=== PATIENT | female | born 1965 | race Caucasian/White ===

== ENCOUNTER 2020-07-17 23:56 | Inpatient (IN) | payer OTHER, SELFPAY ==
[2020-07-18] VITALS (26 sets, daily range): BP systolic 126–182; BP diastolic 23–142; PULSE 75–102; RESP 14–22; TEMP 36.2–37.2; O2SAT 92–100; BMI 24.6; BMI 23.1
--- NOTE | 2020-07-18 | XR_ITS ---
EXAMINATION: CHEST 1 VIEW CLINICAL INFORMATION: Shortness of breath. COMPARISON: 07/02/2020. TECHNIQUE: An AP view of the chest is provided. FINDINGS: The cardiac silhouette is stable. There is diffuse interstitial prominence throughout both lungs, slightly more prominent than on the prior exam in the setting of slightly decreased lung volumes. There aren't neither pleural effusions nor pneumothoraces. A left axillary vascular stent is noted. The osseous structures are stable. IMPRESSION: Diffuse interstitial prominence again identified throughout both lungs, slightly accentuated due to lower lung volumes.
--- NOTE | 2020-07-18 | ECG_ITS ---
Test Reason : BACK PAIN Blood Pressure : / mmHG Vent. Rate : 094 BPM Atrial Rate : 094 BPM P-R Int : 156 ms QRS Dur : 078 ms QT Int : 380 ms P-R-T Axes : 056 080 067 degrees QTc Int : 475 ms Normal sinus rhythm Nonspecific T wave abnormality Abnormal ECG When compared with ECG of 02-JUL-2020 15:36, No significant change was found Referred By: Vern Trujillo Electronically Signed By:ROLANDO MARTINEZ
--- NOTE | 2020-07-18 01:01 | ED_ITS ---
HPI - SOB/Dyspnea General Chief Complaint: Dyspnea Stated Complaint: back pain Time Seen by Provider: 07/18/20 00:39 Source: patient and EMS Mode of arrival: EMS History of Present Illness HPI Narrative: 55-year-old female states of shortness of breath. Has not gone to dialysis for 8 days. States is moving to [place] and unable to attend. increasing dyspnea with exertion. No fevers or chills. No chest pain no abdominal pain no nausea no vomiting MD elicited complaint: shortness of breath Timing: constant Severity: moderate Exacerbating factors: lying flat and movement Treatment prior to arrival: oxygen Related Data Home Medications Medication Instructions Recorded Confirmed albuterol sulfate 2 puff PO QID 07/18/20 07/18/20 amlodipine 1 tab PO DAILY 07/18/20 07/18/20 calcitriol 2 cap PO TID 07/18/20 07/18/20 loratadine 1 tab PO DAILY 07/18/20 07/18/20 melatonin 1 tab PO BEDTIME 07/18/20 07/18/20 mirtazapine 1 tab PO BEDTIME 07/18/20 07/18/20 multivitamin [Daily-Tha] 1 tab PO DAILY 07/18/20 07/18/20 sertraline 1 tab PO DAILY 07/18/20 07/18/20 sevelamer carbonate 3 tab PO TID 07/18/20 07/18/20 tramadol 1 tab PO TID PRN 07/18/20 07/18/20 vit B,C-iron sgv-EM-[id number]-zinc ox 1 tab PO DAILY 07/18/20 07/18/20 [ProRenal] Allergies Allergy/AdvReac Type Severity Reaction Status Date / Time Penicillins [PENICILLINS] Allergy Unknown UNKNOWN Verified 07/18/20 00:34 piperacillin [PIPERACILLIN] Allergy Unknown UNKNOWN Verified 07/18/20 00:34 promethazine [PROMETHAZINE] Allergy Unknown UNKNOWN Verified 07/18/20 00:34 tazobactam [TAZOBACTAM] Allergy Unknown UNKNOWN Verified 07/18/20 00:34 Review of Systems Review of Systems: Constitutional : No Fever, No Chills ENT/Mouth : No sore throat, No Rhinorrhea, No Swallowing Difficulty Eyes: No Eye Pain, No Swelling, No Redness Cardiovascular : No Chest Pain, positive SOB, No Orthopnea, positive Edema Respiratory : No Cough, No Sputum, No Wheezing, positive dyspnea Gastrointestinal : No Nausea, No Vomiting, No Diarrhea, No abdominal Pain, No Hematochezia, No Melena Genitourinary : No Dysuria, No Urinary Frequency, No Hematuria Musculoskeletal : No joint pain, No Myalgias Skin : No Skin Lesions, No rash Neuro : No Weakness, No Numbness, No Dizziness, No Headache Psych : No Anxiety/Panic, No Depression Heme/Lymph: No Bruising, No Lymphadenopathy Endocrine : No Polyuria, No Polydipsia [facility] Past Medical History Attestation statement: The following information was validated with the patient. Medical History AVF (arteriovenous fistula) Blind Cataract Diabetes mellitus End stage kidney disease HTN (hypertension), malignant Toe amputee Surgical History History of cholecystectomy Hx of appendectomy Social History Social History Alcohol intake: unknown Smoking Status: Unknown if ever smoked Use of substances other than those prescribed or required for medical reasons: Unknown Advance Directives: No Advance Directives Information Provided: No Physical Exam Vital Signs and I&O and Narrative: Vital Signs and I&O: Vital Signs Temp 98.9 F 07/18/20 00:10 Pulse 99 07/18/20 01:43 Resp 20 07/18/20 01:57 BP 152/77 H 07/18/20 01:43 Pulse Ox 98 07/18/20 01:43 Intake & Output 07/17/20 07/17/20 07/18/20 06:59 18:59 06:59 Weight 59.194 kg Body Mass Index 24.6 vital signs reviewed Const: Other: Appearance: Alert. Oriented X3. No acute distress. Eyes: Pupils equal, round and reactive to light. ENT: Pharynx normal. Neck: Normal inspection. Neck supple. CVS: Normal heart rate and rhythm. Pulses normal. Respiratory: mild respiratory distress. Breath diminished with mild rales at bilateral bases. No wheezing Abdomen: Soft and nontender. Skin: Skin warm and dry. Normal skin color. Normal skin turgor. Extremities: No lower extremity edema. No lower extremity edema. Neuro: Oriented X 3. No motor deficit. No sensory deficit. General: cooperative; No no acute distress Course Reevaluation(s) Reevaluation #1: patient has seen Dr. Gallardo Nephrology before patient does have dialysis Sunday MDM - SOB/Dyspnea Lab Data Attestation: I reviewed the patient's lab results. Result diagrams: 07/18/20 01:42 Labs: Lab Results 07/18/20 07/18/20 Range/Units 01:42 01:42 WBC 7.0 (4.8-10.8) X10*3/uL RBC 2.51 L (4.20-5.50) X10*6/uL Hgb 6.8 L* (12.0-16.0) g/dl Hct 22.2 L (37-47) % MCV 88.4 (80-98) fL MCH 27.1 (27.0-33.0) pg MCHC 30.6 L (31.0-35.0) g/dl RDW 19.3 H (11.0-16.0) % Plt Count 99 L (160-400) X10*3/uL MPV 9.8 (9.4-12.3) fL Immature Gran % (Auto) 0.3 (0.0-0.4) % Neut % (Auto) 71.8 (45-73) % Lymph % (Auto) 14.1 L (20-40) % [place] % (Auto) 9.6 (2-11) % Eos % (Auto) 3.9 (0-4) % Baso % (Auto) 0.3 (0-2) % Neut # (Auto) 5.0 (2.0-8.3) X10*3/uL Lymph # (Auto) 1.0 L (1.2-4.9) X10*3/uL [place] # (Auto) 0.7 (0.1-1.2) X10*3/uL Eos # (Auto) 0.3 (0.0-0.4) X10*3/uL Baso # (Auto) 0.0 (0.0-0.2) X10*3/uL Abs Immat Gran (auto) 0.02 (0.00-0.03) X10*3/uL Absolute Nucleated RBC 0.000 (0.0-0.012) X10*3/uL Nucleated RBC % (auto) 0.0 (0.0-0.2) /100WBC PT 14.7 H (10.8-13.0) SEC INR 1.2 H (0.9-1.1) ECG Data Attestation: I personally reviewed and interpreted this ECG as follows: Pacemaker model: normal sinus rhythm with a rate of 94. Normal axis. Normal ST segments. Discharge Plan Discharge Prescriptions: No Action multivitamin [Daily-Tha] Tablet 1 tab PO DAILY RF: 0 tramadol 50 mg tablet 1 tab PO TID PRN (Reason: Pain, Moderate) RF: 0 amlodipine 10 mg tablet 1 tab PO DAILY RF: 0 mirtazapine 30 mg tablet 1 tab PO BEDTIME RF: 0 calcitriol 0.5 mcg capsule 2 cap PO TID RF: 0 albuterol sulfate 90 mcg/actuation HFA aerosol inhaler 2 puff PO QID RF: 0 sertraline 50 mg tablet 1 tab PO DAILY RF: 0 loratadine 10 mg tablet 1 tab PO DAILY RF: 0 sevelamer carbonate 800 mg tablet 3 tab PO TID RF: 0 melatonin 5 mg tablet 1 tab PO BEDTIME RF: 0 ProRenal 8 mg iron-800 mcg-1,000 unit tablet 1 tab PO DAILY RF: 0 EKG interpretations EKG EKG results cardiology: interpreted by ENZO and WNL Dysrhythmias Sinus rhythms and dysrhythmias: sinus rhythm NC, pacemaker, normal Normal tracing: normal tracing
[2020-07-18 01:48] LABS: Basophils Percent Auto 0.3 % (0-2); Eosinophils Absolute Auto 0.3 X10*3/uL (0.0-0.4); Eosinophils Percent Auto 3.9 % (0-4); Hematocrit 22.2 % (37-47); Imm Gran Abs Auto 0.02 X10*3/uL (0.00-0.03); Imm Gran Pct Auto 0.3 % (0.0-0.4); Lymphocytes Percent Auto 14.1 % (20-40); MANUAL DIFF FLAG NO; Mean Corpuscular HGB Conc 30.6 g/dl (31.0-35.0); Mean Corpuscular Hemoglobin 27.1 pg (27.0-33.0); Mean Corpuscular Volume 88.4 fL (80-98); Mean Platelet Volume 9.8 fL (9.4-12.3); Monocytes Absolute Auto 0.7 X10*3/uL (0.1-1.2); Monocytes Percent Auto 9.6 % (2-11); Neutrophils Percent Auto 71.8 % (45-73); Red Blood Count 2.51 X10*6/uL (4.20-5.50); Red Cell Distribution Width 19.3 % (11.0-16.0)
[2020-07-18 01:49] LABS: Platelet Count 99 X10*3/uL (160-400)
[2020-07-18] MEDS: Morphine Sulfate 4 MG/ML CARTRIDGE IVPUSH (01:49)
[2020-07-18 01:50] LABS: Hemoglobin 6.8 g/dl (12.0-16.0)
[2020-07-18 01:55] LABS: INTERNATIONAL NORM RATIO 1.2 (0.9-1.1); Prothrombin Time 14.7 SEC (10.8-13.0)
[2020-07-18 02:36] LABS: Troponin-I High Sensitivity 233.7 ng/L (<3.5-17.0)
[2020-07-18 02:37] LABS: Alanine Aminotransferase 8 U/L (0-31); Albumin Level 3.7 g/dL (3.5-5.0); Alkaline Phosphatase 541 U/L (39-117); Anion Gap 22 (12-20); Aspartate Amino Transferase 14 U/L (5-31); Bilirubin Direct 0.2 mg/dL (0.0-0.5); Bilirubin Total 0.6 mg/dL (0.0-1.0); Blood Urea Nitrogen 73 mg/dL (9-16); Calcium 8.4 mg/dL (8.4-10.2); Carbon Dioxide 21 mmol/L (22-29); Chloride 103 mmol/L (96-108); Creatinine Clr Calc Pharmacy 4.8; Estimated Glomerular Filt Rate 4; Glucose Random 110 mg/dL (60-115); Lipase 35 U/L (8-78); Potassium 5.8 mmol/l (3.3-5.1); Sodium 140 mmol/L (135-145); Total Protein 6.7 g/dL (6.5-8.0)
--- NOTE | 2020-07-18 03:00 | P.HPCC_ITS ---
History of Present Illness Date of Service: 07/18/20 Chief Complaint: Chief complaint: SOB/ Fluid Overload no HD x 8 days Chief complaint: Patient was admitted to the ICU due to shortness of breath in the setting of fluid overload for she missed dialysis for a week HPI: 55-year-old female with history of end-stage renal disease on hemodialysis on Saturdays who missed dialysis for approximately 1 week as she was on a trip to [facility]. Patient has type 2 diabetes, hypertension, she is legally blind. History of AV fistula clot has been on Coumadin in the past, cataracts, depressions, osteoarthritis, tobacco dependence, erosive esopha gitis, Patient presented to the emergency room with complaints of shortness of breath, dyspnea on exertion, swelling of the legs. Patient does produce urine. Denies any chest pain, hemoptysis, cough or sputum production, fever chills. Denies arm or jaw pain. In the ER, her workup revealed no white count, the patient appears to be quite anemic with an H&H of 6.8 and 22 respectively, worse than baseline, no history of melena or hematochezia. Her potassium level was 5.8, she was treated with insulin and D50. BNP is 2079, chest x-ray does show evidence of pulmonary Congestion and cardiomegaly. Dr. Rivero from the nephrology team was contacted for dialysis and the pt was admitted to ICU. ROS: Denies headache, no visual changes, lightheadedness or dizziness, no hi story of seizures or strokes, no history of eye or ear problems, no sore throat, cough or sputum production,, denies chest pain, palpitations, no coronary disease, pulmonary disease, no hemoptysis, denies any melena, hematochezia, liver or kidney problems, no dysuria, hematuria, no leg swelling, no history of DVT or PE. She has had a AV fistula clot in the past for which he was on Coumadin. Patient admits to recent traveling to and from [place] but denies the possibility of been contact with somebody with COVID-19. All other review of systems negative. Past Medical History: As above Past Surgical History: AV fistula formation Right ocular lens placement Cholecystectomy Left toe amputation Family history: Significant for hypertension and diabetes in her mother. Social History: Lives with her son, I smokes about 5 cigarettes per day for the past 30 years. No alcohol or drugs. CODE STATUS: Full code Baseline Functionality: Able to ambulate, makes her own meals. Contacts or HCP: Allergies: Penicillin, promethazine, Zosyn (rash) Home Medications: Please see med rec PHYSICAL EXAM: VS: Blood pressure 161/77, heart rate 102, respiratory rate 20, O2 sat 93% on room air, temperature 98.9?. General: Alert oriented x3 no acute distress. Speaking full sentences. Speech is well articulated, thought process is coherent. Following all commands. Skin: Intact, no lesions, edema, erythema, clubbing or cyanosis. No ulcers. HEENT: Head is normocephalic, atraumatic, Left eye is completely opacified. Extraocular movements appear intact. Buccal mucosa is dry, Neck is supple without lymphadenopathy. Cardiac: Clear S1-S2, no murmurs rubs or gallops. 2+ JVD at 30 degree angle Pulmonary: Bibasilar crackles, no rhonchi or wheezes Abdomen: Protuberant, positive bowel sounds in all 4 quadrants. Soft, nontender, no rebound or guarding. Musculoskeletal: Moving all 4 extremities upon request a major joints, there is no crepitus or tenderness. The strength is 5/5 bilaterally and throughout all 4 extremities. No leg edema. Gait not assessed at this point. Neurologic: As above, cranial nerves 2-12 are grossly intact. No focal deficits noted. Motor strength as above. Vascular: 2+ pulses upper and lower extremities distally. Left antecubital AV fistula with a positive strong thrill. SIGNIFICANT LABORATORY DATA: White blood cell 7.0, hemoglobin 6.8, hematocrit 22.2) lower than baseline). PT 14.7, INR 1.2. Sodium 140, potassium 5.8, carbon dioxide 21, anion gap 22, BUN 73, creatinine 11.09. Random glucose 110, calcium 8.4, high sensitivity troponin elevated at 233.7. ( previous baseline 23.5) REVIEW OF IMAGES: CXR impression Diffuse interstitial prominence again identified throughout both lungs, slightly accentuated due to lower lung volumes. EKG REVIEW: sinus rhythm 94 beats per minute. There is no ST elevations, no depressions.T wave inversion AVL age undetermined changes, no comparison. ASSESSMENT AND PLAN: 1. Fluid overload due to lack of hemodialysis (non-compliant) 2. Hyperkalemia 3. Respiratory distress due to 1. 4. Abnormal troponin elevation possibly in light of fluid overload and renal disease rule out ACS 5. Type 2 diabetes appears stable 6. Anemia of chronic disease rule out GI bleed. 7. Hypertension, appears stable Admit to ICU, vital signs, monitor, repeat troponin in 2 hours, recheck EKG with chest pain and in the morning, nephrology consult, if the troponin is higher, will consult Cardiology, I do not think she needs to be anticoagulated at this point. Aspirin orally ordered. Will recheck potassium. Patient will have dialysis soon. Obtain stool occult blood test to rule out the possibility of GI bleed being part of her anemia. Continue with home medications. Kayexalate 30 g p.o. x1 ordered. Add proBNP and D-dimer, magnesium levels. Nebulizers as needed. Insulin sliding scale; Add bowel regimen. Will order 2 units of packed red blood cells to be given with dialysis. GI PROPHYLAXIS: No need at this point DVT PROPHYLAXIS: Pneumatic compression stockings Critical care time used for critical evaluation of this patient, diagnosis, treatment and coordination of care, review her records and documentation TOTAL CRITICAL CARE TIME 90 MIN , free of any procedures. Patient's care was discussed in detail with Dr. Gonzalez. He is aware of all the above as well as the plan of care for this patient. [facility] Past Medical History Medical History AVF (arteriovenous fistula) Blind Cataract Diabetes mellitus End stage kidney disease HTN (hypertension), malignant Toe amputee Surgical History Surgical History History of cholecystectomy Hx of appendectomy Social History Social History Alcohol intake: unknown Smoking Status: Unknown if ever smoked Use of substances other than those prescribed or required for medical reasons: Unknown Advance Directives: No Advance Directives Information Provided: No Meds Allergies Allergy/AdvReac Type Severity Reaction Status Date / Time Penicillins [PENICILLINS] Allergy Unknown UNKNOWN Verified 07/18/20 00:34 piperacillin [PIPERACILLIN] Allergy Unknown UNKNOWN Verified 07/18/20 00:34 promethazine [PROMETHAZINE] Allergy Unknown UNKNOWN Verified 07/18/20 00:34 tazobactam [TAZOBACTAM] Allergy Unknown UNKNOWN Verified 07/18/20 00:34 Home Medications Medication Instructions Recorded Confirmed Type albuterol sulfate 2 puff PO QID 07/18/20 07/18/20 History amlodipine 1 tab PO DAILY 07/18/20 07/18/20 History calcitriol 2 cap PO TID 07/18/20 07/18/20 History loratadine 1 tab PO DAILY 07/18/20 07/18/20 History melatonin 1 tab PO BEDTIME 07/18/20 07/18/20 History mirtazapine 1 tab PO BEDTIME 07/18/20 07/18/20 History multivitamin [Daily-Tha] 1 tab PO DAILY 07/18/20 07/18/20 History sertraline 1 tab PO DAILY 07/18/20 07/18/20 History sevelamer carbonate 3 tab PO TID 07/18/20 07/18/20 History tramadol 1 tab PO TID PRN 07/18/20 07/18/20 History vit B,C-iron lzc-BB-G8-zinc ox 1 tab PO DAILY 07/18/20 07/18/20 History [ProRenal] Physical Exam Vital Signs and I&O and Narrative: Vital Signs and I&O: Vital Signs Temp 98.9 F 07/18/20 00:10 Pulse 99 07/18/20 01:43 Resp 20 07/18/20 01:57 BP 152/77 H 07/18/20 01:43 Pulse Ox 98 07/18/20 01:43 Intake & Output 07/17/20 07/17/20 07/18/20 06:59 18:59 06:59 Weight 59.194 kg Body Mass Index 24.6 Results Labs Labs: Laboratory Tests 07/18/20 07/18/20 07/18/20 01:42 01:42 01:42 WBC 7.0 RBC 2.51 L Hgb 6.8 L* Hct 22.2 L MCV 88.4 MCH 27.1 MCHC 30.6 L RDW 19.3 H Plt Count 99 L MPV 9.8 Immature Gran % (Auto) 0.3 Neut % (Auto) 71.8 Lymph % (Auto) 14.1 L [place] % (Auto) 9.6 Eos % (Auto) 3.9 Baso % (Auto) 0.3 Neut # (Auto) 5.0 Lymph # (Auto) 1.0 L [place] # (Auto) 0.7 Eos # (Auto) 0.3 Baso # (Auto) 0.0 Abs Immat Gran (auto) 0.02 Absolute Nucleated RBC 0.000 Nucleated RBC % (auto) 0.0 PT 14.7 H INR 1.2 H Sodium 140 Potassium 5.8 H Chloride 103 Carbon Dioxide 21 L Anion Gap 22 H BUN 73 H Creatinine 11.09 H* Estim Creat Clear Calc 4.8 Estimated GFR 4 Random Glucose 110 Calcium 8.4 Total Bilirubin 0.6 Direct Bilirubin 0.2 AST 14 ALT 8 Alkaline Phosphatase 541 H Troponin I High Sens Total Protein 6.7 Albumin 3.7 Lipase 35 07/18/20 01:42 WBC RBC Hgb Hct MCV MCH MCHC RDW Plt Count MPV Immature Gran % (Auto) Neut % (Auto) Lymph % (Auto) [place] % (Auto) Eos % (Auto) Baso % (Auto) Neut # (Auto) Lymph # (Auto) [place] # (Auto) Eos # (Auto) Baso # (Auto) Abs Immat Gran (auto) Absolute Nucleated RBC Nucleated RBC % (auto) PT INR Sodium Potassium Chloride Carbon Dioxide Anion Gap BUN Creatinine Estim Creat Clear Calc Estimated GFR Random Glucose Calcium Total Bilirubin Direct Bilirubin AST ALT Alkaline Phosphatase Troponin I High Sens 233.7 H Total Protein Albumin Lipase
[2020-07-18] MEDS: Furosemide 40 MG/4 ML VIAL IVPUSH ×2 (03:10→03:11)
--- NOTE | 2020-07-18 03:39 | PC.NURSE ---
PATIENT REFUSES TO HAVE DALEY CATHETER PLACED. AWARE.
--- NOTE | 2020-07-18 03:48 | PC.NURSE ---
REPORT CALL TO FLOOR.
[2020-07-18 03:54] LABS: D Dimer 587 NG/ML
[2020-07-18] MEDS: Nitroglycerin 2 % Oint 1 GM Packet 0.5 INCH TRANSDERMA (03:56)
--- NOTE | 2020-07-18 04:03 | PC.NURSE ---
PATIENT REFUSED MEDICATION AND STATED IF SHE DIDN'T GET ANYTHING FOR PAIN SHE WAS GOING HOME
[2020-07-18 04:04] LABS: B Type Natriuretic Peptide 2079 pg/mL (<100)
[2020-07-18 04:11] LABS: Magnesium 2.4 mg/dL (1.6-2.6)
[2020-07-18 04:20] LABS: Thyroid Stimulating Hormone 1.97 mIU/mL (0.32-4.0)
[2020-07-18] MEDS: Morphine Sulfate 2 MG/ML CARTRIDGE 0.5 MG IVPUSH (04:23)
--- NOTE | 2020-07-18 05:28 | PC.NURSE ---
UNABLE TO DISCHARGE PATIENT FROM ER NO CLINICAL IMPRESSION , ETC IN [facility]. CHARGE NURSE AWARE. ICU NOTIFIED
[2020-07-18 05:59] LABS: Potassium 5.6 mmol/l (3.3-5.1)
[2020-07-18 06:13] LABS: Troponin-I High Sensitivity 262.9 ng/L (<3.5-17.0)
--- NOTE | 2020-07-18 06:26 | PM.CCN ---
Critical Care Event Note Summary Code activated: No Narrative: even though the patient did not have any cardiac symptomatology, the fact that she had shortness of breath and abnormal troponin with multiple underlying risk factors prompt us to repeat a 2nd troponin. These last came back higher at 263 which in comparison to prior and her baseline is higher. Patient does have significant anemia, I do not want to assume this is simply due to chronic kidney disease, the patient is refusing a rectal exam for occult blood testing. I do not feel comfortable anticoagulating on the basis of the above and without knowing whether not she is bleeding. Cardiology consult with Dr. Delilah Browne was placed and on over the phone discussion about the case was done. Based on the scenario and the fact that the patient presented with fluid overload, significant renal disease, he does not think this is related to acute coronary syndrome. He does not advised to anticoagulate this patient, he agrees with aspirin and beta-rebeca at this point. He further states that high sensitivity troponin of the 160s equivalent to 0.26 of regular troponin markers. No further action at this point. Case discussed with Dr. Gonzalez Critical care time: less than 30 mins
[2020-07-18] MEDS: ondansetron HCL 4 MG/2 ML VIAL IVPUSH (06:28)
[2020-07-18] MEDS: Dextrose 50 % 25 GM/50 ML SYRINGE IVPUSH (06:28)
[2020-07-18] MEDS: Metoprolol Tartrate 12.5 MG HALFTAB PO (06:34)
[2020-07-18 06:38] LABS: Glucose, Whole Blood 62 mg/dL (60-115)
[2020-07-18 07:26] LABS: Glucose, Whole Blood 140 mg/dL (60-115)
--- NOTE | 2020-07-18 09:26 | PC.NURSE ---
Addendum entered by Fidelina Park RN 07/18/20 18:26: PATIENT TAKEN OFF DIALYSIS AT 1730 - PATIENT RECEIVED DINNER TRAY AND ATE 100% - PATIENT REQUESTING TO LEAVE AMA - JESSI FRANCO AT BEDSIDE EXPLAINING RISK OF LEAVING AMA - PATIENT VERBALIZING UNDERSTANDING OF LEAVING AMA - DISCHARGE PAPERWORK COMPLETED AND HANDED TO PATIENT. AMA PAPERWORK SIGNED BY PATIENT. IV REMOVED AND PATIENT TAKEN OFF MONITOR. PATIENT REQUESTING YELLOW CAB NUMBER AND PHONE - PROVIDED BY THIS RN. PATIENT DRESSED - PATIENT BECOMING MORE AGGRESSIVE, YELLING AT STAFF AND THROWING ARMS AROUND- SECURITY AND NURSING ACCOUNTING DIRECTOR CALLED TO UNIT. PATIENT ESCORTED TO FRONT ENTRANCE BY STEFANIE Sibley NURSE EDUCATOR AND SECURITY. Addendum entered by Fidelina Park RN 07/18/20 16:43: DIALYSIS STARTED AT 1430 - PATIENT BECOMING MORE AGGRESSIVE AND CONTINUING TO YELL OUT, THREATENING TO RIP DIALYSIS LINES OUT - PATIENT DEMANDING FOOD - DIET ORDERED AND GSR AT BEDSIDE - CURRENTLY AWAITING TRAY. PATIENT CONTINUED TO YELL OUT, THREATENING TO LEAVE AMA AND PULL DIALYSIS LINES OUT - PATIENT PULLED PULSE OX OFF. JESSI FRANCO AT BEDSIDE EXPLAINING IMPORTANCE OF NOT PULLING AT LINES/TUBES/ETC. WILL CONTINUE TO MONITOR. Addendum entered by Fidelina Park RN 07/18/20 14:33: DR FISH AT BEDSIDE WITH CLAM BED LABORER- PATIENT AGREEABLE TO 3HRS OF DIALYSIS THIS EVENING - DILAUDID 0.25MG IVP ORDERED AND ADMINISTERED FOR PATIENT C/O 10/10 GENERALIZED PAIN. PATIENT REQUESTING FOOD - PATIENTS CURRENT ORDERS ARE NPO - OKAY PER DR FISH TO GIVE PATIENT JUICE AND ICE CREAM. PATIENT PLACED ON BEDPAN AND WAS ABLE TO URINATE APPROX. 150CC YELLOW URINE. ENVIRONMENTAL ENGINEERING ASSISTANT AT BEDSIDE SETTING UP FOR TREATMENT. 1 UNIT OF PRBC TO BE ADMINISTERED BY ENVIRONMENTAL ENGINEERING ASSISTANT DURING DIALYSIS PER DR FISH. WILL CONTINUE TO MONITOR. Addendum entered by Fidelina Park RN 07/18/20 11:41: DR JOYCE AT BEDSIDE - PATIENT CONTINUING TO REFUSE DIALYSIS - MD EDUCATED PATIENT ON POSSIBILITY OF DYING WITHOUT DIALYSIS DR TEE AT BEDSIDE - PATIENT AGREEABLE TO DIALYSIS BUT ONLY IF GIVEN PAIN MEDICATION - THIS RN OFFERED PRN TRAMADOL BUT PATIENT REFUSED. PATIENT CONTINUING TO REMAIN DROWSY BUT AROUSABLE TO VERBAL STIMULI. PATIENT REFUSED 1200 SCHEDULED MEDICATIONS AND 1130 POC - EDUCATED PATIENT ON IMPORTANCE OF MONITORING POC FOR HYPOGLYCEMIA AND THE POTENTIAL FOR ADVERSE REACTIONS INCLUDING R/T HYPOGLYCEMIA. VSS AT THIS TIME. AWAITING MEDICAL DELIVERY DRIVER ARRIVAL. WILL CONTINUE TO MONITOR. Original Note: THIS RN AT BEDSIDE FOR MORNING MEDICATION ADMINISTRATION AND SHIFT ASSESSMENT - PATIENT EASILY AROUSABLE TO VERBAL STIMULI BUT UNABLE TO STAY AWAKE, A&OX3. PATIENT REFUSING ALL PO MEDICATIONS DUE TO INCREASED NAUSEA - THIS RN OFFERED TO INQUIRE MD ABOUT NAUSEA MEDICATIONS BUT PATIENT CONTINUED TO REFUSE ALL PO MEDS. UPDATED PATIENT WITH CURRENT PLAN OF CARE INCLUDING RECEIVING DIALYSIS TODAY - PATIENT REFUSING DIALYSIS - WHEN ASKED WHY PATIENT SAYS ILL ONLY GET DIALYSIS IF I GET PAIN MEDICATION THROUGH MY IV . THIS RN EDUCATED PATIENT REGARDING REASONING FOR DIALYSIS AND POSSIBLE EFFECTS OF NOT RECEIVING DIALYSIS - PATIENT THEN STATES I DONT CARE IF I . DR FISH NOTIFIED VIA PHONE. VSS AT THIS TIME. WILL CONTINUE TO MONITOR.
--- NOTE | 2020-07-18 10:25 | PM.CNNEP ---
History of Present Illness Chief Complaint Chief complaint: back pain [facility] Past Medical History Medical History AVF (arteriovenous fistula) Blind Cataract Diabetes mellitus End stage kidney disease HTN (hypertension), malignant Toe amputee Surgical History Surgical History History of cholecystectomy Hx of appendectomy Social History Social History Household Members: Children Housing: House Alcohol intake: unknown Smoking Status: Current every day smoker Tobacco Type: Cigarette Packs Per Day: 0.25 Cigarettes Per Day: 5.0 Years Smoked: >30 Meds Allergies Allergy/AdvReac Type Severity Reaction Status Date / Time Penicillins [PENICILLINS] Allergy Unknown UNKNOWN Verified 07/18/20 00:34 piperacillin [PIPERACILLIN] Allergy Unknown UNKNOWN Verified 07/18/20 00:34 promethazine [PROMETHAZINE] Allergy Unknown UNKNOWN Verified 07/18/20 00:34 tazobactam [TAZOBACTAM] Allergy Unknown UNKNOWN Verified 07/18/20 00:34 Home Medications Medication Instructions Recorded Confirmed Type albuterol sulfate 2 puff PO QID 07/18/20 07/18/20 History amlodipine 1 tab PO DAILY 07/18/20 07/18/20 History calcitriol 2 cap PO TID 07/18/20 07/18/20 History loratadine 1 tab PO DAILY 07/18/20 07/18/20 History melatonin 1 tab PO BEDTIME 07/18/20 07/18/20 History mirtazapine 1 tab PO BEDTIME 07/18/20 07/18/20 History multivitamin [Daily-Tha] 1 tab PO DAILY 07/18/20 07/18/20 History sertraline 1 tab PO DAILY 07/18/20 07/18/20 History sevelamer carbonate 3 tab PO TID 07/18/20 07/18/20 History tramadol 1 tab PO TID PRN 07/18/20 07/18/20 History vit B,C-iron [id number]-[id number]-zinc ox 1 tab PO DAILY 07/18/20 07/18/20 History [ProRenal] Physical Exam Vital Signs and I&O: Vital Signs Temp 97.6 F 07/18/20 07:45 Pulse 75 10/04/20 10:00 Resp 14 07/18/20 10:00 BP 153/52 H 07/18/20 10:00 Pulse Ox 96 07/18/20 10:00 Intake & Output 07/17/20 07/18/20 07/18/20 18:59 06:59 18:59 Intake Total 0 / 0 0 / 0 Output Total 0 / 0 Balance 0 / 0 0 / 0 Urine Output (Average ml/kg/hr) 0.00 Weight 59.194 kg 55.5 kg Intake: Intake, Oral Amount 0 / 0 0 / 0 Output: Output, Urine Amount 0 / 0 very weak oral moist mucosa lungs crackles on bases s1s2 +WILL ext LUE AVF+thrill Body Mass Index 23.1 Results Lab Results Result Diagrams: 07/18/20 01:42 07/18/20 05:27 Lab results: Chemistry 07/18/20 07/18/20 01:42 05:27 Sodium 140 Potassium 5.8 H 5.6 H Carbon Dioxide 21 L BUN 73 H Creatinine 11.09 H* Calcium 8.4 Hematology 07/18/20 01:42 WBC 7.0 Hgb 6.8 L* Plt Count 99 L Assessment and Plan (1) Acute hyperkalemia: Status: Acute (2) Anemia: Qualifiers: Anemia type: due to chronic kidney disease Chronic kidney disease stage: on chronic dialysis Qualified Code(s): N18.6 - End stage renal disease; D63.1 - Anemia in chronic kidney disease; Z99.2 - Dependence on renal dialysis Status: Acute (3) Fluid overload: Qualifiers: Hypervolemia type: unspecified Qualified Code(s): E87.70 - Fluid overload, unspecified Status: Acute (4) ESRD (end stage renal disease): Status: Acute Pt declines dialysis today she is requesting opioids for pain Based on my evaluation, I do not think she is capable of making decisions, suggest Psych and Palliative care consult, she is declining dialysis today, will discuss further with ICU team, could consider a dialysis trial a blood transfusion and discuss further after mental status clears and able to make decisions.
--- NOTE | 2020-07-18 12:18 | PM.EVENT ---
Event Note Event Note: Elevated troponin and fluid overload in
--- NOTE | 2020-07-18 13:02 | PM.EVENT ---
Event Note Event Note: Full consult dictated. Elevated troponins not related to acute coronary syndrome, troponin of flat. Most likely due to subendocardial strain and ischemia related to congestive heart failure and advanced end-stage renal disease on patient noncompliant with her dialysis follow-up. Also elevated BNP suggestive of heart failure related to lack of dialysis. Echocardiogram should be requested.
[2020-07-18] MEDS: HYDROmorphone HCl 0.5 MG/0.5 ML SYRINGE 0.25 MG IVPUSH (14:16)
[2020-07-18] MEDS: 0.9 % Sodium Chloride Flush 3 ML SYRINGE 2 ML IVFLUSH (14:17)
--- NOTE | 2020-07-18 14:35 | P.PNCC_ITS ---
Critical Care Event Note Summary Code activated: No Narrative: Mrs. Goyal is a 55 yo F with ESRD on HD who was admitted to the ICU with pulmonary edema after missing HD for 8 days during a trip to [facility]. HD was planned for the second slot this afternoon. I spoke with Dr. Gonzales earlier today. It was obvious that this is a patient who does not necessarily need dialysis 3 times a week, and in fact she often does not show up. She still makes urine. So there was certainly no urgency to dialyze her earlier today. Currently in the ICU, she is satting 100% on 1 L oxygen NC, and she?s breathing very comfortably with no WOB. I was called to see her this afternoon because she was refusing dialysis and refusing all nursing care.. I talked to her. She seemed to be willing to have dialysis if we gave her a dose of pain medicine. She claimed to be having pain throughout her whole body. Neither myself nor the developmental training counselor were able to get a better handle on her pain. I gave her 0.25 mg IV Dilaudid, essentially as a placebo. After that she was very cooperative with the nurses and my attempts to care for her. On my exam, she had maybe 2 cm JVD. Chest was clear to auscultation. I heard no murmur or gallops. She had no peripheral edema. Plan is for imminent dialysis during which she?ll get 2 units of blood (discussed with Dr. Gonzales). After that, she should stay in the hospital least one more day for follow-up of her troponins and her respiratory status. I dolores pect, however, that she will choose to leave [facility]. Time (including full chart rev, mult visits with patient, and mult convers with Dr. Gonzales): 45 min ([id number]) Critical care time: 30 - 74 mins
--- NOTE | 2020-07-18 17:45 | PM.CCN ---
Critical Care Event Note Summary Code activated: No Narrative: Patient has been verbally abusive for several hours while on dialysis, she has threatened to leave AMA several times. Patient attempted to pull the hemodialysis catheter once and then remove her oxygen nasal cannula from her face. In addition the patient has been verbally abusive to the nurses and demanding food. After several hours of he did not go see a shins, we did convince the patient to finish dialysis for she was getting blood with it. We accommodated her with a meal. The patient then demanded to leave against medical advice, risks of doing so were discussed in detail with the patient which include recurrent fluid overload, electrolyte abnormalities, arrhythmias and even . The patient stated that she did not care in that she could right this minute. I did complete a against medical advise discharge, advised the patient to follow-up with her telegraph operator for outpatient dialysis and to continue to take her home medications. An AMA form was signed by the patient and this was witnessed by several nurses. Critical care time: less than 30 mins
--- NOTE | 2020-07-18 22:14 | CONS_ITS ---
DATE OF SERVICE: REASON FOR CONSULTATION: Evaluation of end-stage kidney disease. HISTORY OF PRESENT ILLNESS: Ms. Powers is a very pleasant 55-year-old female who unfortunately has had significant deterioration over the past week. She is outpatient at the [facility] with end-stage kidney disease requiring dialysis 3 times a week. Unfortunately, she has been very noncompliant with her outpatient regimen. She recently traveled to [facility] for relocation, however, has decided to come back to [facility] and being called to evaluate for in the intensive care unit as she may require dialysis treatment. 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 OUTPATIENT MEDICATIONS: Ropinirole 0.25 mg daily p.r.n. at night, Renvela 800 mg 3 times a day with meals, Eliquis 2.5 mg daily, pantoprazole 40 mg daily, omeprazole 40 mg daily, sucralfate 1 g 4 times a day, gabapentin 300 mg daily, metoclopramide 5 mg 3 times a day with meals, oxycodone 5 mg 3 times a day p.r.n. for pain, amlodipine 10 mg daily, sertraline 50 mg daily, calcitriol 0.5 mcg daily, lorazepam 0.5 mg daily, Benadryl 25 mg daily, senna daily p.r.n. Zofran 4 mg q.6 hours p.r.n. for nausea. ALLERGIES: PENICILLINS, PHENERGAN, PIPERACILLIN, PROMETHAZINE, TAZOBACTAM, ZOSYN. SOCIAL HISTORY: Chaotic. She used to smoke cigarettes. Reports previous history of alcohol intake. No illicit drugs. FAMILY HISTORY: Noncontributory. REVIEW OF SYSTEMS: The patient is in the intensive care unit. Unable to provide as she is declining dialysis unless she receives pain medication. She is very lethargic, unable to answer questions. PHYSICAL EXAMINATION: GENERAL: On physical evaluation, she is lethargic. VITAL SIGNS: Blood pressure 153/52, pulse is 75 per minute, oxygen saturation 96% on room air. HEENT: Oral, moist mucosa. NECK: Reveals no jugular venous distention. She has very profound facial edema. LUNGS: Have decreased breath sounds bilaterally. HEART: S1, S2. Positive murmur. ABDOMEN: Soft, nontender. Positive bowel sounds. EXTREMITIES: Trace edema. Left upper extremity AV fistula. Positive thrill and bruit. NEUROLOGIC: Nonfocal. Able to answer questions and goes back to sleep. LABORATORY DATA: Hemoglobin 6.8, INR 1.2, potassium 5.8, repeat 5.6. Bicarbonate 21. Glucose 140, BNP 2000. Chest x-ray shows diffuse interstitial prominence throughout on both lungs. IMPRESSIONS: Ms. Powers is a very pleasant 55-year-old female with known history of end-stage kidney disease, very noncompliant, recently moved to [facility], returned to [facility]. Has not received dialysis for at least 10 days, who is in intensive care unit with: 1. Acute hyperkalemia. 2. Acute anemia. 3. Volume overload/congestive heart failure. 4. Lethargic/change in mental status. RECOMMENDATIONS: The patient declines hemodialysis unless she receives pain medicine. I doubt that she is capable of making decisions. I would ask the team to request a psych evaluation with our team in hospital to assess ability to make decisions. In the meantime, if appropriate, we will continue with medical care she is doing. In the recent past, she was considering stopping all therapies. This discussion should definitely be brought up as well with psych evaluation. Presently, she is lethargic, probably as a result of uremia due to lack of dialysis for days and the use of opioids. With your permission, we will continue to follow during the hospital stay. Thank you for allowing me to be part of her care. If she decides to do dialysis, we will go ahead and proceed with treatment today. Best regards, MD DIEGO Jones/MODL / [id number]
--- NOTE | 2020-07-19 00:55 | CONS_ITS ---
DATE OF SERVICE: 07/18/2020 REQUESTING PROVIDER: Beka Hoffman REASON FOR CONSULTATION: Abnormal troponin. PRIMARY CARE PHYSICIAN: Unknown. CHIEF COMPLAINT: Shortness of breath and fluid overload. HISTORY OF PRESENT ILLNESS: This is a 55-year-old female with end-stage renal disease on hemodialysis, has missed dialysis for greater than a week. She said she was moving to [place], [place], however, was not able to find a place to live and then returned to [facility]. She has not been on dialysis and came because she was getting short of breath with increasing leg swelling. The patient denies any chest pain. The patient is very limited historian, does not want to give much of the history and says she does not want to talk to much people and keeps the eyes closed during the entire conversation. The patient was seen by Dr. Gonzales, initially she refused to undergo dialysis. The patient is denying any palpitations, remained hemodynamically stable, not hypoxic. PAST MEDICAL HISTORY: History of diabetes and hypertension. She is legally blind. She has prior history of end-stage renal disease on hemodialysis. She had clotting of AV fistula in the past on Coumadin. She has depression. She has chronic pain syndrome. Her main complaint currently is pain. PERSONAL HISTORY: The patient lives with her son, but she says she does not want to talk to her son about her medical condition. She smokes 5 cigarettes a day. No alcohol or drug abuse. ALLERGIES: TO PENICILLIN, PROMETHAZINE, AND ZOSYN. FAMILY HISTORY: Noncontributory to present illness. REVIEW OF SYSTEMS: Difficult to obtain from the patient, but she denies any headaches. She says she has no visual changes. No upper respiratory or lower respiratory symptoms. No focal neurologic deficits. No exertional chest pain. No clear orthopnea or PND. No abdominal distention. Does have leg edema. PHYSICAL EXAMINATION: GENERAL: The patient is alert, responds appropriately, but is very asleep with the eyes closed whenever in between questions. Reveals pallor. There is no icterus. No cyanosis. VITAL SIGNS: Blood pressure currently 141/66, pulse is 76, respirations 14 to 16 per minute, and pulse ox 98% on 1 L/minute nasal cannula. HEENT: Normocephalic and atraumatic. NECK: Supple. No clear jugular venous distention. LUNGS: Clear to auscultation and also mild kyphoscoliosis. CARDIOVASCULAR: Regular S1 and S2 with S4. ABDOMEN: Benign. CLINICAL ENGINEERING MANAGER: Nonfocal. EXTREMITIES: Bilateral pedal edema. LABORATORY DATA: Hemoglobin 6.8, hematocrit 22.2, white cell count of 7, and platelet count of 99. ProTime 14.7 and INR 1.2. Sodium 140, potassium 5.6, BUN 73, and creatinine 11.09. BNP of 2079. Troponin of 233.7 and subsequently 262.9. Alkaline phosphatase of 541. TSH of 1.97. Chest x-ray shows diffuse interstitial prominence, however consistent with heart failure. EKG shows normal sinus rhythm, nonspecific ST changes. No significant abnormality compared to before. ASSESSMENT: This is a 55-year-old female who presents to the hospital with missing dialysis for more than a week, noted to be in fluid overload as well as hyperkalemia and uremia and elevated troponin, which are flat with no ischemic symptoms with elevated BNP suggestive of heart failure. PLAN: At this time, I had a long discussion with the patient in the presence of nurse. We discussed about the need for dialysis to protect her life. She initially said she did not want dialysis, but subsequently agreed and so will have dialysis done. Today, she also wants to go home. She wants a pain medication through IV route. Clinically, not having any ischemic symptoms. Her troponin elevation are secondary to heart failure in the setting of fluid overload and missing dialysis. Echocardiogram should be obtained to evaluate LV systolic and diastolic function to evaluate for LVH. She also markedly anemic, this needs to be treated and probably help with heart failure and ischemic status. No other workup is indicated. Compliance has been issue with this patient. Erik Mazariegos MD NRS/MODL / [id number]
== END 2020-07-18 18:35 | disposition left against medical advice (07) | DRG 682 ==
LOC: HO.ED 07-18 02:48 → HO.ICU 07-18 03:08
PROVIDERS: Physician Assistant Medical; Admitting Provider Anesthesiology; Emergency Provider Emergency Medicine; PCP Internal Medicine; Visit Provider Anesthesiology
DX: I12.0 Hypertensive chronic kidney disease with stage 5 chronic kidney disease or end stage renal disease (principal); N18.6 End stage renal disease; E11.22 Type 2 diabetes mellitus with diabetic chronic kidney disease; Z99.2 Dependence on renal dialysis; Z91.15 Patient's noncompliance with renal dialysis; E87.5 Hyperkalemia; H54.8 Legal blindness, as defined in USA; Z20.828 Contact with and (suspected) exposure to other viral communicable diseases; D63.1 Anemia in chronic kidney disease; F17.210 Nicotine dependence, cigarettes, uncomplicated; Z71.6 Tobacco abuse counseling; Z88.0 Allergy status to penicillin; Z79.891 Long term (current) use of opiate analgesic; Z79.899 Other long term (current) drug therapy
CPT/HCPCS: 36415; 71045; 80048; 80076; 82947; 83690; 83735; 83880; 84132; 84443; 84484; 85025; 85060; 85379; 85610; 86850; 86901; 86920; 86923; 90999; 93005; 93010; 94640; 96361; 96374; 96375; 99284; 99285; J1170; J1940; J2270; J2405; P9016

== ENCOUNTER 2020-07-23 16:59 | Emergency (ER) | payer OTHER, SELFPAY ==
[2020-07-23 17:25] VITALS: BP 185/89; PULSE 95; RESP 20; TEMP 36.4; O2SAT 95; BMI 622.1
--- NOTE | 2020-07-23 17:44 | ECG_ITS ---
Test Reason : SOB Blood Pressure : / mmHG Vent. Rate : 096 BPM Atrial Rate : 096 BPM P-R Int : 166 ms QRS Dur : 094 ms QT Int : 376 ms P-R-T Axes : 034 071 011 degrees QTc Int : 475 ms Normal sinus rhythm Low voltage QRS Nonspecific ST abnormality Abnormal ECG When compared with ECG of 18-JUL-2020 01:28, No significant change was found Referred By: Paris Warren Electronically Signed By:AVINASH BAUMAN MD
--- NOTE | 2020-07-23 17:45 | XR_ITS ---
EXAMINATION: XR CHEST CLINICAL INFORMATION: Chest pain COMPARISON: 07/18/2020 along with the oldest chest radiograph available dated 12/20/2017 TECHNIQUE: Frontal view of the chest was obtained. FINDINGS: The heart size is normal. Surgical clips are present in the upper mediastinum. Increased interstitial prominence is again seen although slightly improved when compared to the prior study. Many of these underlying findings are present chronic changes. No new pulmonary edema is seen. No new focal consolidation is seen. Scarring is present in the right midlung. No pleural effusions are present. IMPRESSION: No acute intrathoracic disease. Prominent interstitial markings seen throughout but slightly improved when compared to the prior study.
--- NOTE | 2020-07-23 18:57 | ED.GENADULT ---
HPI - General Adult General Chief complaint: General Medical Stated complaint: GENERAL WEAKNESS Time Seen by Provider: 07/23/20 17:44 Source: patient Mode of arrival: EMS Limitations: no limitations History of Present Illness HPI narrative: 55-year-old female presents with multiple complaints. States that she has missed 1 week of dialysis, has 10/10 pain to all extremities and her body, headache, dizziness, lightheadedness, nausea, vomiting, and weakness. She states that she did not go to dialysis because she wasn't feeling well, and has not taken any of her medications on a regular basis. She states to be cold, hungry, and is asking for pain management. Onset (ago): week(s) Location: head, neck, chest, back, abdomen, pelvis, left, right, upper extremity and lower extremity Severity: severe and similar to prior episodes Severity scale (1-10): 10 Quality: aching and constant Pain Consistency: constant Relieving factors: none Exacerbating factors: movement Associated symptoms: chest pain, fever/chills, headaches, loss of appetite, malaise, nausea/vomiting and weakness Treatments prior to arrival: none Related Data Home Medications Medication Instructions Recorded Confirmed albuterol sulfate 2 puff PO QID 07/18/20 07/18/20 amlodipine 1 tab PO DAILY 07/18/20 07/18/20 calcitriol 2 cap PO TID 07/18/20 07/18/20 loratadine 1 tab PO DAILY 07/18/20 07/18/20 melatonin 1 tab PO BEDTIME 07/18/20 07/18/20 mirtazapine 1 tab PO BEDTIME 07/18/20 07/18/20 multivitamin [Daily-Tha] 1 tab PO DAILY 07/18/20 07/18/20 sertraline 1 tab PO DAILY 07/18/20 07/18/20 sevelamer carbonate 3 tab PO TID 07/18/20 07/18/20 tramadol 1 tab PO TID PRN 07/18/20 07/18/20 vit B,C-iron [id number]-zinc ox 1 tab PO DAILY 07/18/20 07/18/20 [ProRenal] Allergies Allergy/AdvReac Type Severity Reaction Status Date / Time Penicillins [PENICILLINS] Allergy Unknown UNKNOWN Verified 07/18/20 00:34 piperacillin [PIPERACILLIN] Allergy Unknown UNKNOWN Verified 07/18/20 00:34 promethazine [PROMETHAZINE] Allergy Unknown UNKNOWN Verified 07/18/20 00:34 tazobactam [TAZOBACTAM] Allergy Unknown UNKNOWN Verified 07/18/20 00:34 Review of Systems Review of Systems: Yes all other systems are reviewed and are negative Constitutional: Constitutional: Reports body ache(s), Reports chills, Reports fatigue, Reports headache(s), Reports lethargy, Reports malaise, Reports poor appetite and Reports weakness Eyes: Eyes: Reports no additional eye complaints ENT: Reports vertigo, Reports dizziness, Reports headache(s) and Reports neck pain Cardiovascular: Cardiovascular: Reports chest pain, Reports irregular heart rhythm, Reports leg edema and Reports lightheadedness Respiratory: Respiratory: Reports cough Gastrointestinal: Gastrointestinal: Reports abdominal pain and Reports bloating Genitourinary: Genitourinary: Reports flank pain Musculoskeletal: Musculoskeletal: Reports back pain, Reports myalgias, Reports arthralgias and Reports neck pain Integumentary/Breasts: Skin/Breast: Reports system reviewed and no additional complaints, except as docu Neurologic: Reports vertigo, Reports dizziness, Reports headache(s) and Reports weakness Psychiatric: Psychiatric: Reports change in appetite and Reports depression Endocrine: Endocrine: Reports fatigue Hematologic/Lymphatic: Hematologic/Lymphatic: Reports easy bruising PMFSH Past Medical History Attestation statement: The following information was validated with the patient. Medical History AVF (arteriovenous fistula) Blind Cataract Diabetes mellitus End stage kidney disease HTN (hypertension), malignant Toe amputee Surgical History History of cholecystectomy Hx of appendectomy Social History Social History Household Members: Children Housing: House Alcohol intake: unknown Smoking Status: Current every day smoker Tobacco Type: Cigarette Packs Per Day: 0.25 Cigarettes Per Day: 5.0 Years Smoked: >30 Advance Directives: No Advance Directives Information Provided: Yes Physical Exam Vital Signs and I&O and Narrative: Vital Signs and I&O: Vital Signs Temp 97.6 F 07/23/20 17:25 Pulse 95 07/23/20 17:25 Resp 20 07/23/20 17:25 BP 185/89 H 07/23/20 17:25 Pulse Ox 95 07/23/20 17:25 Intake & Output 07/23/20 07/23/20 07/24/20 06:59 18:59 06:59 Weight 57.8 kg Body Mass Index 622.1 Appearance: Alert. Oriented X3. Mild distress, unkempt. Eyes: Pupils equal, round and reactive to light. ENT: Pharynx normal. Oral mucosa dry. Neck: Normal inspection. Neck supple. CVS: Normal heart rate and rhythm. Pulses normal. Respiratory: No respiratory distress. Breath sounds crackles at bilateral bases Abdomen: Soft and nontender. Skin: Skin warm and dry. Normal skin color. Normal skin turgor. Extremities: Bilateral lower extremity edema, edema noted to the eyelids Neuro: Oriented X 3. No motor deficit. No sensory deficit. Course Course Course Narrative: Patient presents with multiple complaints after missing dialysis for 1 week. She was seen on 07/18/2020 for similar complaints. At this time we will order labs, EKG, chest x-ray. Patient needs multiple redirection during physical exam and interview. Patient is asking for pain management, is refusing EKG, and IV placement. Multiple discussions with patient with this SILK SPREADER and RN, unable to redirect. Patient would like to leave against medical advice. Reevaluation(s) Reevaluation #1: Lab values reviewed, although there are critical results chemistries are better than her visit on 07/18/2020 with the exception of her BUN. Patient is alert oriented x4, understands that leaving against medical advice could be significantly detrimental to her health and can result in . She is well-known to this facility, has had multiple visits for missing dialysis, and understands that if she leaves she could . Time: 20:12 Medical Decision Making Lab Data Result diagrams: 07/23/20 19:08 07/23/20 19:08 Labs: Lab Results 07/23/20 07/23/20 07/23/20 Range/Units 19:08 19:08 19:08 WBC 6.7 (4.8-10.8) X10*3/uL RBC 3.84 L D (4.20-5.50) X10*6/uL Hgb 11.1 L D (12.0-16.0) g/dl Hct 35.1 L D (37-47) % MCV 91.4 (80-98) fL MCH 28.9 (27.0-33.0) pg MCHC 31.6 (31.0-35.0) g/dl RDW 17.9 H (11.0-16.0) % Plt Count 120 L (160-400) X10*3/uL MPV 9.9 (9.4-12.3) fL Immature Gran % (Auto) 0.3 (0.0-0.4) % Neut % (Auto) 73.8 H (45-73) % Lymph % (Auto) 12.3 L (20-40) % [place] % (Auto) 7.4 (2-11) % Eos % (Auto) 5.9 H (0-4) % Baso % (Auto) 0.3 (0-2) % Lymph # (Auto) 0.8 L (1.2-4.9) X10*3/uL [place] # (Auto) 0.5 (0.1-1.2) X10*3/uL Eos # (Auto) 0.4 (0.0-0.4) X10*3/uL Baso # (Auto) 0.0 (0.0-0.2) X10*3/uL Abs Immat Gran (auto) 0.02 (0.00-0.03) X10*3/uL Absolute Neuts (auto) 5.0 (2.0-8.3) X10*3/uL Absolute Nucleated RBC 0.000 (0.0-0.012) X10*3/uL Nucleated RBC % (auto) 0.0 (0.0-0.2) /100WBC PT 14.4 H (10.8-13.0) SEC INR 1.2 H (0.9-1.1) Sodium 138 (135-145) mmol/L Potassium 6.2 H* (3.3-5.1) mmol/l Chloride 99 (96-108) mmol/L Carbon Dioxide 20 L (22-29) mmol/L Anion Gap 25 H (12-20) BUN 88 H* D (9-16) mg/dL Creatinine 10.60 H* (0.5-1.4) mg/dL Estim Creat Clear Calc -1.5 Estimated GFR 4 Random Glucose 116 H (60-115) mg/dL Lactic Acid (0.5-2.0) mmol/L Calcium 8.4 (8.4-10.2) mg/dL Magnesium 2.6 (1.6-2.6) mg/dL Troponin I High Sens (<3.5-17.0) ng/L 07/23/20 07/23/20 Range/Units 19:08 19:08 WBC (4.8-10.8) X10*3/uL RBC (4.20-5.50) X10*6/uL Hgb (12.0-16.0) g/dl Hct (37-47) % MCV (80-98) fL MCH (27.0-33.0) pg MCHC (31.0-35.0) g/dl RDW (11.0-16.0) % Plt Count (160-400) X10*3/uL MPV (9.4-12.3) fL Immature Gran % (Auto) (0.0-0.4) % Neut % (Auto) (45-73) % Lymph % (Auto) (20-40) % [place] % (Auto) (2-11) % Eos % (Auto) (0-4) % Baso % (Auto) (0-2) % Lymph # (Auto) (1.2-4.9) X10*3/uL [place] # (Auto) (0.1-1.2) X10*3/uL Eos # (Auto) (0.0-0.4) X10*3/uL Baso # (Auto) (0.0-0.2) X10*3/uL Abs Immat Gran (auto) (0.00-0.03) X10*3/uL Absolute Neuts (auto) (2.0-8.3) X10*3/uL Absolute Nucleated RBC (0.0-0.012) X10*3/uL Nucleated RBC % (auto) (0.0-0.2) /100WBC PT (10.8-13.0) SEC INR (0.9-1.1) Sodium (135-145) mmol/L Potassium (3.3-5.1) mmol/l Chloride (96-108) mmol/L Carbon Dioxide (22-29) mmol/L Anion Gap (12-20) BUN (9-16) mg/dL Creatinine (0.5-1.4) mg/dL Estim Creat Clear Calc Estimated GFR Random Glucose (60-115) mg/dL Lactic Acid 1.8 (0.5-2.0) mmol/L Calcium (8.4-10.2) mg/dL Magnesium (1.6-2.6) mg/dL Troponin I High Sens 202.0 H (<3.5-17.0) ng/L Imaging Data Chest x-ray: Attestation: I personally reviewed and interpreted this imaging study as follows: Radiologist's impression: FINDINGS: The heart size is normal. Surgical clips are present in the upper mediastinum. Increased interstitial prominence is again seen although slightly improved when compared to the prior study. Many of these underlying findings are present chronic changes. No new pulmonary edema is seen. No new focal consolidation is seen. Scarring is present in the right midlung. No pleural effusions are present. IMPRESSION: No acute intrathoracic disease. Prominent interstitial markings seen throughout but slightly improved when compared to the prior study. Discharge Plan Discharge Clinical Impression: Acute hyperkalemia, ESRD (end stage renal disease) Patient Disposition: Left Against Medical Advice Prescriptions: No Action multivitamin [Daily-Tha] Tablet 1 tab PO DAILY RF: 0 tramadol 50 mg tablet 1 tab PO TID PRN (Reason: Pain, Moderate) RF: 0 amlodipine 10 mg tablet 1 tab PO DAILY RF: 0 mirtazapine 30 mg tablet 1 tab PO BEDTIME RF: 0 calcitriol 0.5 mcg capsule 2 cap PO TID RF: 0 albuterol sulfate 90 mcg/actuation HFA aerosol inhaler 2 puff PO QID RF: 0 sertraline 50 mg tablet 1 tab PO DAILY RF: 0 loratadine 10 mg tablet 1 tab PO DAILY RF: 0 sevelamer carbonate 800 mg tablet 3 tab PO TID RF: 0 melatonin 5 mg tablet 1 tab PO BEDTIME RF: 0 ProRenal 8 mg iron-800 mcg-1,000 unit tablet 1 tab PO DAILY RF: 0 Interventions: ED Discharge Assessment Last Done: 07/23/20 20:36 Discharge Date/Time: 07/23/20 20:36
--- NOTE | 2020-07-23 19:10 | PC.NURSE ---
Report taken from Jayda, this RN resuming care. Per Jayda, pt purposely missing dialysis because she did not feel well. Pt now reporting weakness, malaise and bodyaches. Previous RN UTO IV/blood work, all labs obtained and sent. Pt resting in bed, pt states if I don't get pain meds, I'm leaving! WEBSITE DESIGNER aware.
[2020-07-23 19:15] LABS: MANUAL DIFF FLAG NO
[2020-07-23 19:18] LABS: Basophils Percent Auto 0.3 % (0-2); Eosinophils Absolute Auto 0.4 X10*3/uL (0.0-0.4); Eosinophils Percent Auto 5.9 % (0-4); Hematocrit 35.1 % (37-47); Hemoglobin 11.1 g/dl (12.0-16.0); Imm Gran Abs Auto 0.02 X10*3/uL (0.00-0.03); Imm Gran Pct Auto 0.3 % (0.0-0.4); Lymphocytes Absolute Auto 0.8 X10*3/uL (1.2-4.9); Lymphocytes Percent Auto 12.3 % (20-40); Mean Corpuscular HGB Conc 31.6 g/dl (31.0-35.0); Mean Corpuscular Hemoglobin 28.9 pg (27.0-33.0); Mean Corpuscular Volume 91.4 fL (80-98); Mean Platelet Volume 9.9 fL (9.4-12.3); Monocytes Absolute Auto 0.5 X10*3/uL (0.1-1.2); Monocytes Percent Auto 7.4 % (2-11); Neutrophils Percent Auto 73.8 % (45-73); Platelet Count 120 X10*3/uL (160-400); Red Blood Count 3.84 X10*6/uL (4.20-5.50); Red Cell Distribution Width 17.9 % (11.0-16.0); White Blood Count 6.7 X10*3/uL (4.8-10.8)
[2020-07-23 19:31] LABS: INTERNATIONAL NORM RATIO 1.2 (0.9-1.1); Prothrombin Time 14.4 SEC (10.8-13.0)
[2020-07-23 19:37] LABS: Lactic Acid 1.8 mmol/L (0.5-2.0)
--- NOTE | 2020-07-23 19:44 | PC.NURSE ---
EKG not completed previously. Awaiting EKG machine at this time. Continue to monitor.
[2020-07-23 19:53] LABS: Anion Gap 25 (12-20); Blood Urea Nitrogen 88 mg/dL (9-16); Calcium 8.4 mg/dL (8.4-10.2); Carbon Dioxide 20 mmol/L (22-29); Chloride 99 mmol/L (96-108); Creatinine Clr Calc Pharmacy -1.5; Estimated Glomerular Filt Rate 4; Glucose Random 116 mg/dL (60-115); Magnesium 2.6 mg/dL (1.6-2.6); Potassium 6.2 mmol/l (3.3-5.1); Sodium 138 mmol/L (135-145)
--- NOTE | 2020-07-23 20:02 | PC.NURSE ---
Pt repeatedly yelling from room. This RN at bedside with EKG machine, pt refusing, states I want to leave now!!! MANAGER OF CONSTRUCTION aware. Pt awaiting AMA paperwork.
--- NOTE | 2020-07-23 20:31 | PC.NURSE ---
Pt aware of pending AMA paperwork. Pt refusing to wait at this time, continues refusing second set of BCX, EKG, and urine sample. REVERSER aware. Pt walking out of ED, states she doesn't want to wait for paperwork. REVERSER aware.
== END 2020-07-23 20:36 | disposition left against medical advice (07) ==
PROVIDERS: Nurse Practitioner Family; Emergency Provider Emergency Medicine; PCP Internal Medicine
DX: E23.2 Diabetes insipidus (principal); I12.0 Hypertensive chronic kidney disease with stage 5 chronic kidney disease or end stage renal disease; E11.22 Type 2 diabetes mellitus with diabetic chronic kidney disease; N18.6 End stage renal disease; Z79.899 Other long term (current) drug therapy; Z91.15 Patient's noncompliance with renal dialysis; Z79.4 Long term (current) use of insulin
CPT/HCPCS: 36415; 71045; 80048; 83605; 83735; 84484; 85025; 85610; 87040; 93005; 99283

== ENCOUNTER 2020-07-24 16:33 | Inpatient (IN) | payer OTHER, SELFPAY ==
--- NOTE | 2020-07-24 16:49 | XR_ITS ---
EXAMINATION: XR CHEST CLINICAL INFORMATION: Shortness of breath COMPARISON: 07/23/2020 TECHNIQUE: Frontal view of the chest was obtained. FINDINGS: The lungs are hypoinflated. Again demonstrated is central vascular congestion and a diffuse interstitial prominence that is similar to prior studies. This may represent chronic interstitial lung disease although superimposed mild interstitial edema cannot be excluded. Stable cardiomediastinal silhouette. No new consolidation. IMPRESSION: Central vascular congestion with probable mild interstitial edema.
[2020-07-24 16:51] VITALS: BP 153/68; PULSE 94; RESP 12; TEMP 36.6; O2SAT 95; O2SAT 98; BMI 23.6
--- NOTE | 2020-07-24 16:54 | ED.SOB ---
HPI - SOB/Dyspnea General Chief Complaint: Dyspnea Stated Complaint: Shortness of Breath Time Seen by Provider: 07/24/20 16:39 Source: patient Limitations: no limitations History of Present Illness HPI Narrative: 55-year-old female with a history of end-stage renal disease. Patient presents to the emergency department after missing dialysis 3 times. Her last dialysis was 1 week ago on Sunday. Patient claims she feels achy painful week in she did not get dialysis. He was in the emergency department yesterday. Patient denies any chest pain any coughing any congestion any upper respiratory symptoms. Denies any abdominal pain. No bloody stool. No fever no chills. No diaphoresis. Just feels very weak and tired and did not feel like getting dialysis. MD elicited complaint: shortness of breath Pertinent past history: other ( end-stage renal disease, history of hyperkalemia, history of anemia, history of fluid overload secondary to noncompliance.) Timing: constant Severity: moderate Exacerbating factors: nothing Relieving factors: nothing Treatment prior to arrival: none Related Data Home oxygen amount: 2 liters Home Medications Medication Instructions Recorded Confirmed albuterol sulfate 2 puff PO QID 07/18/20 07/18/20 amlodipine 1 tab PO DAILY 07/18/20 07/18/20 calcitriol 2 cap PO TID 07/18/20 07/18/20 loratadine 1 tab PO DAILY 07/18/20 07/18/20 melatonin 1 tab PO BEDTIME 07/18/20 07/18/20 mirtazapine 1 tab PO BEDTIME 07/18/20 07/18/20 multivitamin [Daily-Tha] 1 tab PO DAILY 07/18/20 07/18/20 sertraline 1 tab PO DAILY 07/18/20 07/18/20 sevelamer carbonate 3 tab PO TID 07/18/20 07/18/20 tramadol 1 tab PO TID PRN 07/18/20 07/18/20 vit B,C-iron pux-TZ-K8-zinc ox 1 tab PO DAILY 07/18/20 07/18/20 [ProRenal] Allergies Allergy/AdvReac Type Severity Reaction Status Date / Time Penicillins [PENICILLINS] Allergy Unknown UNKNOWN Verified 07/18/20 00:34 piperacillin [PIPERACILLIN] Allergy Unknown UNKNOWN Verified 07/18/20 00:34 promethazine [PROMETHAZINE] Allergy Unknown UNKNOWN Verified 07/18/20 00:34 tazobactam [TAZOBACTAM] Allergy Unknown UNKNOWN Verified 07/18/20 00:34 Review of Systems Review of Systems: Yes all other systems are reviewed and are negative Eyes: Eyes: Reports as per HPI ENT: Reports system reviewed and no additional complaints, except as documented Cardiovascular: Cardiovascular: Reports as per HPI and Reports dyspnea Respiratory: Respiratory: Reports as per HPI and Reports dyspnea Gastrointestinal: Gastrointestinal: Reports as per HPI and Reports no additional gastrointestinal complaints Genitourinary: Genitourinary: Reports no additional female genitourinary complaints Musculoskeletal: Musculoskeletal: Reports no additional musculoskeletal complaints Integumentary/Breasts: Skin/Breast: Reports system reviewed and no additional complaints, except as docu Neurologic: Reports system reviewed and no additional complaints, except as documented Psychiatric: Psychiatric: Reports no additional psychiatric complaints Endocrine: Endocrine: Reports no additional endocrine complaints Hematologic/Lymphatic: Hematologic/Lymphatic: Reports no additional hematologic/lymphatic complaints [facility] Past Medical History Attestation statement: The following information was validated with the patient. Medical History AVF (arteriovenous fistula) Blind Cataract Diabetes mellitus End stage kidney disease HTN (hypertension), malignant Toe amputee Surgical History History of cholecystectomy Hx of appendectomy Social History Social History Household Members: Children Housing: House Alcohol intake: never Smoking Status: Current every day smoker Tobacco Type: Cigarette Packs Per Day: 0.25 Cigarettes Per Day: 5.0 Years Smoked: >30 Use of substances other than those prescribed or required for medical reasons: No Advance Directives: No Advance Directives Information Provided: No Physical Exam Vital Signs: Vital Signs: Vital Signs Temp Pulse Resp BP Pulse Ox 07/24/20 19:07 93 96 07/24/20 16:57 97.9 F 95 153/68 H 94 07/24/20 16:51 97.9 F 94 12 153/68 H 95 Body Mass Index 23.6 Const: General: cooperative Orientation/consciousness: oriented to person HENMT: Head: Yes normal to inspection Ears: hearing grossly normal bilaterally General nose exam: Normal external nose present Eyes: Alignment and Position: alignment normal Eyelids: Yes eyelids normal Conjunctivae: conjunctivae normal Pupils: Equal, round and reactive pupils present Neck: Neck: Yes normal visual inspection, No tracheal deviation, No tracheostomy present and No JVD Thyroid: Thyroid normal Chest: Chest palpation & inspection: normal inspection of the chest and normal palpation of entire chest wall Resp: Effort & Inspection: normal respiratory effort Auscultation: clear to auscultation bilaterally Cardio: Jugular venous distension: no JVD Palpation: normal PMI Rate: regular rate Rhythm: regular rhythm Heart sounds: S1 normal heart sound present and S2 normal heart sound present GI: Inspection: Yes normal to inspection Auscultation: normal bowel sounds : General: Yes no CVA tenderness Back/Spine/Pelvis: Back: no CVA tenderness Skin: General skin exam: no rashes or lesions noted Neuro: General: oriented to person Cranial nerves: Yes Equal, round and reactive pupils present Extrem: General: Yes normal to inspection, Yes full ROM and Yes capillary refill normal Psych: Appearance: grossly normal MDM - SOB/Dyspnea MDM Narrative Medical decision making narrative: Patient's creatinine is 11 consistent with end-stage renal disease and not getting dialysis. Patient's potassium was 6.9. Patient was given calcium gluconate. Insulin and glucose was given. Patient well appearing. Case discussed with Nephrology. Will elect to do dialysis here in the hospital. Case discussed with hospitalist service for admission. Lab Data Result diagrams: 07/24/20 17:17 07/24/20 17:17 Labs: Lab Results 07/24/20 07/24/20 07/24/20 Range/Units 17:17 17:17 17:17 WBC 7.2 (4.8-10.8) X10*3/uL RBC 4.07 L (4.20-5.50) X10*6/uL Hgb 11.8 L (12.0-16.0) g/dl Hct 37.0 (37-47) % MCV 90.9 (80-98) fL MCH 29.0 (27.0-33.0) pg MCHC 31.9 (31.0-35.0) g/dl RDW 17.5 H (11.0-16.0) % Plt Count 126 L (160-400) X10*3/uL MPV 10.0 (9.4-12.3) fL Immature Gran % (Auto) 0.3 (0.0-0.4) % Neut % (Auto) 78.4 H (45-73) % Lymph % (Auto) 10.2 L (20-40) % [place] % (Auto) 6.8 (2-11) % Eos % (Auto) 3.9 (0-4) % Baso % (Auto) 0.4 (0-2) % Lymph # (Auto) 0.7 L (1.2-4.9) X10*3/uL [place] # (Auto) 0.5 (0.1-1.2) X10*3/uL Eos # (Auto) 0.3 (0.0-0.4) X10*3/uL Baso # (Auto) 0.0 (0.0-0.2) X10*3/uL Abs Immat Gran (auto) 0.02 (0.00-0.03) X10*3/uL Absolute Neuts (auto) 5.6 (2.0-8.3) X10*3/uL Absolute Nucleated RBC 0.000 (0.0-0.012) X10*3/uL Nucleated RBC % (auto) 0.0 (0.0-0.2) /100WBC VBG pH 7.32 (7.32-7.43) Sodium 138 (135-145) mmol/L Potassium 6.9 H* (3.3-5.1) mmol/l Chloride 97 (96-108) mmol/L Carbon Dioxide 21 L (22-29) mmol/L Anion Gap 27 H (12-20) BUN 96 H* (9-16) mg/dL Creatinine 11.24 H* (0.5-1.4) mg/dL Estim Creat Clear Calc 4.3 Estimated GFR 4 Random Glucose 145 H (60-115) mg/dL Calcium 9.2 (8.4-10.2) mg/dL Magnesium 2.7 H (1.6-2.6) mg/dL Total Bilirubin 0.8 (0.0-1.0) mg/dL Direct Bilirubin 0.3 (0.0-0.5) mg/dL AST 16 (5-31) U/L ALT 18 (0-31) U/L Alkaline Phosphatase 647 H (39-117) U/L Total Protein 7.8 (6.5-8.0) g/dL Albumin 4.2 (3.5-5.0) g/dL Lipase 26 (8-78) U/L Critical Care Time Critical Care Time Critical Care Time: Yes Total Critical Care Time: 35 Attestation: time spent in critical care excluding procedures includes talking with patient talking with consultants. Analyzing patient's lab results. Examining patient's and re-evaluating patient. Discharge Plan Discharge Prescriptions: No Action multivitamin [Daily-Tha] Tablet 1 tab PO DAILY RF: 0 tramadol 50 mg tablet 1 tab PO TID PRN (Reason: Pain, Moderate) RF: 0 amlodipine 10 mg tablet 1 tab PO DAILY RF: 0 mirtazapine 30 mg tablet 1 tab PO BEDTIME RF: 0 calcitriol 0.5 mcg capsule 2 cap PO TID RF: 0 albuterol sulfate 90 mcg/actuation HFA aerosol inhaler 2 puff PO QID RF: 0 sertraline 50 mg tablet 1 tab PO DAILY RF: 0 loratadine 10 mg tablet 1 tab PO DAILY RF: 0 sevelamer carbonate 800 mg tablet 3 tab PO TID RF: 0 melatonin 5 mg tablet 1 tab PO BEDTIME RF: 0 ProRenal 8 mg iron-800 mcg-1,000 unit tablet 1 tab PO DAILY RF: 0
[2020-07-24 16:57] VITALS: BP 153/68; PULSE 95; TEMP 36.6; O2SAT 94
[2020-07-24 17:22] LABS: MANUAL DIFF FLAG NO
[2020-07-24 17:26] LABS: pH VBG 7.32 (7.32-7.43)
[2020-07-24 17:33] LABS: Basophils Percent Auto 0.4 % (0-2); Eosinophils Absolute Auto 0.3 X10*3/uL (0.0-0.4); Eosinophils Percent Auto 3.9 % (0-4); Hemoglobin 11.8 g/dl (12.0-16.0); Imm Gran Abs Auto 0.02 X10*3/uL (0.00-0.03); Imm Gran Pct Auto 0.3 % (0.0-0.4); Lymphocytes Absolute Auto 0.7 X10*3/uL (1.2-4.9); Lymphocytes Percent Auto 10.2 % (20-40); Mean Corpuscular HGB Conc 31.9 g/dl (31.0-35.0); Mean Corpuscular Volume 90.9 fL (80-98); Monocytes Absolute Auto 0.5 X10*3/uL (0.1-1.2); Monocytes Percent Auto 6.8 % (2-11); Neutrophils Absolute Auto 5.6 X10*3/uL (2.0-8.3); Neutrophils Percent Auto 78.4 % (45-73); Platelet Count 126 X10*3/uL (160-400); Red Blood Count 4.07 X10*6/uL (4.20-5.50); Red Cell Distribution Width 17.5 % (11.0-16.0); White Blood Count 7.2 X10*3/uL (4.8-10.8)
--- NOTE | 2020-07-24 18:05 | PC.NURSE ---
PT TRIAGED C/O DIFFUSE BODYACHES AND SOB AFTER HAVING SKIPPED DIALYSIS TODAY. SHE WAS SEEN FOR THIS ISSUE LAST NIGHT, REFUSED DIALYSIS SAYING SHE WOULD GO TODAY. TODAY SHE FELT TOO ILL TO GO. SPO2 ON RA IS WNL. AT BEDSIDE. PT AGREES TO UNDERGO DIALYSIS TODAY. LABS DRAWN, 20G IN L AC. SINUS RHYTHM ON MONITOR.
[2020-07-24 18:22] LABS: Alanine Aminotransferase 18 U/L (0-31); Albumin Level 4.2 g/dL (3.5-5.0); Alkaline Phosphatase 647 U/L (39-117); Anion Gap 27 (12-20); Aspartate Amino Transferase 16 U/L (5-31); Bilirubin Direct 0.3 mg/dL (0.0-0.5); Bilirubin Total 0.8 mg/dL (0.0-1.0); Blood Urea Nitrogen 96 mg/dL (9-16); Calcium 9.2 mg/dL (8.4-10.2); Carbon Dioxide 21 mmol/L (22-29); Chloride 97 mmol/L (96-108); Creatinine Clr Calc Pharmacy 4.3; Estimated Glomerular Filt Rate 4; Glucose Random 145 mg/dL (60-115); Lipase 26 U/L (8-78); Magnesium 2.7 mg/dL (1.6-2.6); Potassium 6.9 mmol/l (3.3-5.1); Sodium 138 mmol/L (135-145); Total Protein 7.8 g/dL (6.5-8.0)
[2020-07-24] MEDS: Sodium Polystyrene Sulfon/Sorb 15 GM/60 ML ORAL.SUSP 60 GM PO (18:46)
[2020-07-24] MEDS: Calcium Gluconate/NaCl,Iso-Osm 1 GM/50 ML PLAST..BAG IV (18:49)
[2020-07-24] MEDS: Insulin Regular, Human 100 UNIT/ML 3 ML VIAL 6 UNIT IVPUSH (18:56)
--- NOTE | 2020-07-24 19:03 | PC.NURSE ---
PT MEDICATED PER EMR TO ADDRESS HYPERKALEMIA. PT WAS EXPLAINED RATIONALE FOR PAIN MEDICATION NOT BEING ADMINISTERED BY MD AND THIS RN, THAT DIALYSIS TAKES PRIORITY, AND DUE TO RECENT FREQUENT USE OF FACILITY WITHOUT ATTENDING DIALYSIS, PAIN MEDICATION IS NOT INDICATED AT THIS TIME. PT NOW REFUSING TO CONSUME KAYEXALATE STATING I'M NOT DRINKING ANYTHING UNTIL I GET MY PAIN MEDS . PT HAS BEEN YELLING BELLIGERENTLY WHENEVER THIS RN LEAVES THE ROOM.
[2020-07-24 19:07] VITALS: PULSE 93; O2SAT 96
--- NOTE | 2020-07-24 19:46 | PC.NURSE ---
THIS ACRYLIC FABRICATOR WENT INTO PATIENTS ROOM TO DO POC, PT ASKED WHAT THAT WAS FOR, I EXPLAINED IT WAS TO CHECK HER BLOOD SUGAR LEVEL, PATIENT REFUSED. FPRSTAN AND RN AWARE.
--- NOTE | 2020-07-24 19:53 | PC.NURSE ---
CLAUDIA PCT AND THIS RN ATTEMPTED TO RECHECK FINGERSTICK BLOOD GLUCOSE. PT REFUSED ALL ATTEMPTS MADE. CONTINUES TO REFUSE TO CONSUME KAYEXALATE. CALCIUM GLUC INFUSED. PT NOW SAYING SHE WANTS TO LEAVE I DON'T KNOW WHY I EVEN COME HERE, NOTHING EVER HAPPENS .
--- NOTE | 2020-07-24 20:16 | PC.NURSE ---
REPORT GIVEN TO DIALYSIS RIMMA CRENSHAW, DIALYSIS BEING SET UP
[2020-07-24 21:00] LABS: Glucose, Whole Blood 108 mg/dL (60-115)
--- NOTE | 2020-07-24 21:16 | PC.NURSE ---
PT THREATENING TO LEAVE SITE, DEMANDING DIALYSIS BE MADE AVAILABLE NOW. REFUSING HOSPITAL ADMISSION. CONVINCED TO STAY TO RECEIVE DIALYSIS.
--- NOTE | 2020-07-24 22:30 | PC.NURSE ---
PT INSISTED ON LEAVING AMA. UNABLE TO WALK WITHOUT SEVERE DYSPNEA. CONVINCED PT TO UNDERGO DIALYSIS UPSTAIRS. TRANSFERRED BY THIS RN.
--- NOTE | 2020-07-24 23:34 | PC.NURSE ---
Attempted to call report to [facility] nurse. Patient has been in dialysis.
--- NOTE | 2020-07-24 23:40 | PC.NURSE ---
NURSE TO NURSE GIVEN Priya CRENSHAW
--- NOTE | 2020-07-25 07:42 | P.EN_ITS ---
Event Note Event Note: patient presented to the hospital with missed dialysis x3 sessions. The plan was for patient to be admitted to the hospital, admission order was placed for stat dialysis due to hyperkalemia but patient decided to leave AMA after 1 hour of treatment. I spoke to patient extensively making the case that she could have cardiac arrhythmias and potentially as a result. Patient is completely aware that she would potentially have cardiac arrhythmias and I if she leaves without completion of dialysis. She is adamant that she wants to leave the hospital. Patient is examined at her dialysis unit, she is alert and oriented x3, she is able to repeat to me why leaving the hospital with cause her , and she knows the worse case scenario. Nursing commissary production supervisor advised, and patient will receive a ride to go home.
--- NOTE | 2020-07-25 19:40 | PC.NURSE ---
Patient to dialysis from ED. After one hour of treatment patient requesting to stop dialysis, and leave hospital. Dialysis nurse notified this RN . This RN educated and encouraged patient to remain in hospital for treatment. Dr. Reed notified , came to patient's bedside to explain in detail the risks of leaving the hospital without treatment. Patient A&O x3, aware of risks , requesting to leave AMA. Intravenous and quality assurance monitor chassis removed. Patient stating unable to sign paperwork d/t blindness , verbalized understanding of leaving hospital against medical advice. [facility] provided patient with transportation home.
[2020-07-27 08:41] LABS: Glucose, Whole Blood 108 mg/dL (60-115)
--- NOTE | 2020-07-27 19:19 | PM.IMHP ---
History of Present Illness Date of Service: 07/25/20 Chief Complaint: Missed dialysis This is a 55 yo F with pmhx ESRD on dialysis presents to the hospital for missed dialysis and generalized body aches.Pt missed 2 sessions of dialysis prior to the presentation. Labs in ED showed K of 6.9. Pt initially refused admission, but agreed to be admitted and undergo urgent dialysis. One hr into dialysis pt decided to leave AMA She was fully awake, alert and oriented. She completely understood and was able to rpt back to me the risk of leaving without receiving medical care which included . Despite this risk pt wanted to leave the hospital. Review of Systems Neurologic: Reports system reviewed and no additional complaints, except as documented COUNT INCLUDES [facility] Medical History AVF (arteriovenous fistula) Blind Cataract Diabetes mellitus End stage kidney disease HTN (hypertension), malignant Toe amputee Surgical History History of cholecystectomy Hx of appendectomy Social History Household Members: Children Housing: House Alcohol intake: never Smoking Status: Current every day smoker Tobacco Type: Cigarette Packs Per Day: 0.25 Cigarettes Per Day: 5.0 Years Smoked: >30 Use of substances other than those prescribed or required for medical reasons: No Advance Directives: No Advance Directives Information Provided: No Meds Allergies Allergy/AdvReac Type Severity Reaction Status Date / Time Penicillins [PENICILLINS] Allergy Unknown UNKNOWN Verified 07/18/20 00:34 piperacillin [PIPERACILLIN] Allergy Unknown UNKNOWN Verified 07/18/20 00:34 promethazine [PROMETHAZINE] Allergy Unknown UNKNOWN Verified 07/18/20 00:34 tazobactam [TAZOBACTAM] Allergy Unknown UNKNOWN Verified 07/18/20 00:34 Home Medications Medication Instructions Recorded Confirmed Type albuterol sulfate 2 puff PO QID 07/18/20 07/18/20 History amlodipine 1 tab PO DAILY 07/18/20 07/18/20 History calcitriol 2 cap PO TID 07/18/20 07/18/20 History loratadine 1 tab PO DAILY 07/18/20 07/18/20 History melatonin 1 tab PO BEDTIME 07/18/20 07/18/20 History mirtazapine 1 tab PO BEDTIME 07/18/20 07/18/20 History multivitamin [Daily-Tha] 1 tab PO DAILY 07/18/20 07/18/20 History sertraline 1 tab PO DAILY 07/18/20 07/18/20 History sevelamer carbonate 3 tab PO TID 07/18/20 07/18/20 History tramadol 1 tab PO TID PRN 07/18/20 07/18/20 History vit B,C-iron swk-RP-Y3-zinc ox 1 tab PO DAILY 07/18/20 07/18/20 History [ProRenal] Physical Exam Vital Signs and Narrative: Vital Signs: Last Vital Signs Temp 97.9 F 07/24/20 16:57 Pulse 93 07/24/20 19:07 Resp 12 07/24/20 16:51 BP 153/68 H 07/24/20 16:57 Pulse Ox 96 07/24/20 19:07 Body Mass Index 23.6 Const: Other: Catechtic General: cooperative and no acute distress Orientation/consciousness: patient oriented x3 Eyes: General: appearance normal, both eyes and all related structures Pupils: Equal, round and reactive pupils present Resp: Effort & Inspection: normal respiratory effort and able to speak in complete sentences Auscultation: clear to auscultation bilaterally Cardio: Rate: regular rate Rhythm: regular rhythm GI: Palpation (GI): Soft to palpation Auscultation: normal bowel sounds Skin: General skin exam: no rashes or lesions noted Neuro: General: patient oriented x3 Cranial nerves: Yes Equal, round and reactive pupils present Cognition (Neuro): normal cognition Extrem: General: Yes normal to inspection and Yes no pedal edema Results Labs Labs: Laboratory Tests 07/24/20 07/24/20 07/24/20 17:17 17:17 17:17 WBC 7.2 RBC 4.07 L Hgb 11.8 L Hct 37.0 MCV 90.9 MCH 29.0 MCHC 31.9 RDW 17.5 H Plt Count 126 L MPV 10.0 Immature Gran % (Auto) 0.3 Neut % (Auto) 78.4 H Lymph % (Auto) 10.2 L [place] % (Auto) 6.8 Eos % (Auto) 3.9 Baso % (Auto) 0.4 Lymph # (Auto) 0.7 L [place] # (Auto) 0.5 Eos # (Auto) 0.3 Baso # (Auto) 0.0 Abs Immat Gran (auto) 0.02 Absolute Neuts (auto) 5.6 Absolute Nucleated RBC 0.000 Nucleated RBC % (auto) 0.0 VBG pH 7.32 Sodium 138 Potassium 6.9 H* Chloride 97 Carbon Dioxide 21 L Anion Gap 27 H BUN 96 H* Creatinine 11.24 H* Estim Creat Clear Calc 4.3 Estimated GFR 4 POC Glucose Random Glucose 145 H Calcium 9.2 Magnesium 2.7 H Total Bilirubin 0.8 Direct Bilirubin 0.3 AST 16 ALT 18 Alkaline Phosphatase 647 H Total Protein 7.8 Albumin 4.2 Lipase 26 07/24/20 07/24/20 18:45 18:45 WBC RBC Hgb Hct MCV MCH MCHC RDW Plt Count MPV Immature Gran % (Auto) Neut % (Auto) Lymph % (Auto) [place] % (Auto) Eos % (Auto) Baso % (Auto) Lymph # (Auto) [place] # (Auto) Eos # (Auto) Baso # (Auto) Abs Immat Gran (auto) Absolute Neuts (auto) Absolute Nucleated RBC Nucleated RBC % (auto) VBG pH Sodium Potassium Chloride Carbon Dioxide Anion Gap BUN Creatinine Estim Creat Clear Calc Estimated GFR POC Glucose 108 108 Random Glucose Calcium Magnesium Total Bilirubin Direct Bilirubin AST ALT Alkaline Phosphatase Total Protein Albumin Lipase Assessment and Plan (1) ESRD (end stage renal disease): Status: Acute (2) Anemia: Qualifiers: Anemia type: due to chronic kidney disease Chronic kidney disease stage: on chronic dialysis Qualified Code(s): N18.6 - End stage renal disease; D63.1 - Anemia in chronic kidney disease; Z99.2 - Dependence on renal dialysis Status: Acute this is a 55 yo F who presented to the hospital with missed dialysis, found to have hyperkalemia. After an hour of being admitted pt decided to leave AMA. She received 1 hour of dialysis. She is alert and oriented and able to comprehend fully the risk of leaving AMA which includes . A ride was arranged for pt and she left the hospital safely.
== END 2020-07-25 01:23 | disposition left against medical advice (07) | DRG 682 ==
LOC: HO.ED 20:38 → HO.IMC 23:13
PROVIDERS: Admitting Provider Internal Medicine; Emergency Provider Emergency Medicine Emergency Medical Services; PCP Internal Medicine; Visit Provider Internal Medicine
DX: I12.0 Hypertensive chronic kidney disease with stage 5 chronic kidney disease or end stage renal disease (principal); N18.6 End stage renal disease; E11.22 Type 2 diabetes mellitus with diabetic chronic kidney disease; E87.5 Hyperkalemia; Z99.81 Dependence on supplemental oxygen; Z99.2 Dependence on renal dialysis; Z91.15 Patient's noncompliance with renal dialysis; F17.210 Nicotine dependence, cigarettes, uncomplicated; Z71.6 Tobacco abuse counseling; Z88.0 Allergy status to penicillin; Z79.891 Long term (current) use of opiate analgesic; Z79.899 Other long term (current) drug therapy
CPT/HCPCS: 36415; 71045; 80048; 80076; 82800; 82947; 83605; 83690; 83735; 84484; 85025; 85610; 87040; 93005; 99283; 99285; 99291; J0610

== ENCOUNTER 2020-07-30 17:04 | Emergency (ER) | payer OTHER, SELFPAY ==
[2020-07-30 17:21] VITALS: BP 142/76; BP 148/80; PULSE 81; PULSE 87; RESP 18; TEMP 36.7; O2SAT 94; BMI 21.9
--- NOTE | 2020-07-30 17:27 | ED.FALL ---
HPI - Fall General Chief Complaint: Fall Stated Complaint: fall yesterday, left arm/neck pain Time Seen by Provider: 07/30/20 17:26 Source: patient Mode of arrival: ambulatory Limitations: no limitations History of Present Illness HPI Narrative: Debbie tripped hitting her head and arm Onset (ago): day(s) (1) Fall from: standing Place fall occurred: home Loss of consciousness: none Location of injury: head Location of injury - extremities: left: arm Related Data Home Medications Medication Instructions Recorded Confirmed albuterol sulfate 2 puff PO QID 07/18/20 07/18/20 amlodipine 1 tab PO DAILY 07/18/20 07/18/20 calcitriol 2 cap PO TID 07/18/20 07/18/20 loratadine 1 tab PO DAILY 07/18/20 07/18/20 melatonin 1 tab PO BEDTIME 07/18/20 07/18/20 mirtazapine 1 tab PO BEDTIME 07/18/20 07/18/20 multivitamin [Daily-Tha] 1 tab PO DAILY 07/18/20 07/18/20 sertraline 1 tab PO DAILY 07/18/20 07/18/20 sevelamer carbonate 3 tab PO TID 07/18/20 07/18/20 tramadol 1 tab PO TID PRN 07/18/20 07/18/20 vit B,C-iron pap-DO-I4-zinc ox 1 tab PO DAILY 07/18/20 07/18/20 [ProRenal] Previous Rx's Medication Instructions Recorded naproxen [Naprosyn] 500 mg PO BID #20 tab 07/30/20 Allergies Allergy/AdvReac Type Severity Reaction Status Date / Time Penicillins [PENICILLINS] Allergy Unknown UNKNOWN Verified 07/18/20 00:34 piperacillin [PIPERACILLIN] Allergy Unknown UNKNOWN Verified 07/18/20 00:34 promethazine [PROMETHAZINE] Allergy Unknown UNKNOWN Verified 07/18/20 00:34 tazobactam [TAZOBACTAM] Allergy Unknown UNKNOWN Verified 07/18/20 00:34 Review of Systems Constitutional: Constitutional: Reports no additional constitutional complaints Eyes: Eyes: Reports no additional eye complaints ENT: Denies dizziness Cardiovascular: Cardiovascular: Reports no additional cardiovascular complaints Respiratory: Respiratory: Reports as per HPI Gastrointestinal: Gastrointestinal: Reports no additional gastrointestinal complaints Genitourinary: Genitourinary: Reports no additional female genitourinary complaints Musculoskeletal: Musculoskeletal: Reports no additional musculoskeletal complaints Integumentary/Breasts: Skin/Breast: Denies rash Neurologic: Reports system reviewed and no additional complaints, except as documented, Denies dizziness and Denies Sensory deficit (Neuro) Psychiatric: Psychiatric: Denies anxiety [facility] Past Medical History Medical History (Updated 07/30/20 @ 20:27 by Luis Mosqeuda MD) AVF (arteriovenous fistula) Blind Cataract Diabetes mellitus End stage kidney disease HTN (hypertension), malignant Toe amputee Surgical History History of cholecystectomy Hx of appendectomy Social History Social History Household Members: Children Housing: House Alcohol intake: never Smoking Status: Current some day smoker Tobacco Type: Cigarette Packs Per Day: 0.25 Cigarettes Per Day: 5.0 Years Smoked: >30 Smoked in Last 30 Days: Yes Use of substances other than those prescribed or required for medical reasons: No Advance Directives: No Advance Directives Information Provided: No Physical Exam Vital Signs: Vital Signs: Vital Signs Temp Pulse Resp BP Pulse Ox 07/30/20 19:50 85 20 98 07/30/20 19:31 98.1 F 87 20 128/74 93 07/30/20 17:21 98.0 F 87 18 148/80 H 94 Body Mass Index 21.9 Const: Other: chronically ill looking older than stated age Nutritional Appearance: malnourished Orientation/consciousness: oriented to person and patient oriented x3 Limitations: no limitations HENMT: Head: Yes normal to inspection Ears: external ears normal General nose exam: Normal external nose present Mouth: Normal oral and palatal mucosa present and oropharynx normal Throat: Yes posterior oropharynx normal Eyes: General: appearance normal, both eyes and all related structures Neck: Other: supple Neck: Yes normal visual inspection Chest: Chest palpation & inspection: normal inspection of the chest Resp: Auscultation: clear to auscultation bilaterally Cardio: Jugular venous distension: no JVD Rate: regular rate Rhythm: regular rhythm Heart sounds: S1 normal heart sound present and S2 normal heart sound present GI: Inspection: Yes normal to inspection Palpation (GI): Soft to palpation, nontender and No hepatosplenomegaly present Auscultation: normal bowel sounds : General: Yes no CVA tenderness Back/Spine/Pelvis: Back: no CVA tenderness Skin: General skin exam: no rashes or lesions noted Neuro: General: oriented to person and patient oriented x3 Cranial nerves: Yes CN's II-XII intact bilaterally Motor exam (neuro): 5/5 motor strength present throughout Sensory Exam: No Sensory deficit (Neuro) Extrem: Other: right clavical and shoulder are tender question of crepitance Psych: Appearance: grossly normal Course Course Course Narrative: no head injury or neck injury isolated clavicle fracture Procedures Procedure Narrative Procedure Narrative: sling applied MDM - Fall MDM Narrative Medical decision making narrative: rule out brain and neck injury, will refer to ortho for clavicle fracture Imaging Data CT scan - head: Radiologist's impression: no acute injury Ct neck: Radiologist's impression: no fracture or subluxation Discharge Plan Discharge Clinical Impression: Clavicle fracture Qualifiers: Encounter type: initial encounter Clavicle location: shaft Fracture type: closed Fracture alignment: displaced Laterality: left Qualified Code(s): S42.022A - Displaced fracture of shaft of left clavicle, initial encounter for closed fracture Patient Disposition: Home, Self-Care Instructions: Clavicle Fracture (ED) Additional Instructions: take tramadol and naprosyn for pain Prescriptions: New naproxen [Naprosyn] 500 mg tablet 500 mg PO BID Qty: 20 RF: 0 No Action multivitamin [Daily-Tha] Tablet 1 tab PO DAILY RF: 0 tramadol 50 mg tablet 1 tab PO TID PRN (Reason: Pain, Moderate) RF: 0 amlodipine 10 mg tablet 1 tab PO DAILY RF: 0 mirtazapine 30 mg tablet 1 tab PO BEDTIME RF: 0 calcitriol 0.5 mcg capsule 2 cap PO TID RF: 0 albuterol sulfate 90 mcg/actuation HFA aerosol inhaler 2 puff PO QID RF: 0 sertraline 50 mg tablet 1 tab PO DAILY RF: 0 loratadine 10 mg tablet 1 tab PO DAILY RF: 0 sevelamer carbonate 800 mg tablet 3 tab PO TID RF: 0 melatonin 5 mg tablet 1 tab PO BEDTIME RF: 0 ProRenal 8 mg iron-800 mcg-1,000 unit tablet 1 tab PO DAILY RF: 0 Referrals: Armando Dan MD [Physician] - 2 days
--- NOTE | 2020-07-30 17:30 | PC.NURSE ---
PATIENT HAS LT AV FISTULA + BRUIT/THRILL, PT STATES SHE GOES TO DIALYSIS T,TH,SAT.
--- NOTE | 2020-07-30 18:10 | XR_ITS ---
EXAMINATION: XR SHOULDER, LEFT CLINICAL INFORMATION: Fall. Arm pain. COMPARISON: Chest x-ray 07/24/2020, 07/23/2020 TECHNIQUE: Two views of the left shoulder. FINDINGS: There is a transverse fracture through the mid distal shaft of the clavicle. The distal fracture fragment is displaced one full shaft width superior. There is overriding of the fracture fragments by about 1.5 cm. The acromioclavicular joint appears widened as well. The glenohumeral joint is normal. Surgical clips at the base of the neck. Vascular stent in the right upper arm. IMPRESSION: Transverse fracture distal shaft of left clavicle. Acromioclavicular joint separation.
--- NOTE | 2020-07-30 18:10 | XR_ITS ---
EXAMINATION: XR CLAVICLE, LEFT CLINICAL INFORMATION: Fall. Pain. COMPARISON: None TECHNIQUE: Single of the left clavicle. FINDINGS: There is a transverse fracture of the mid distal shaft of the clavicle. There is one full shaft width superior displacement of the distal fracture fragment. There is overriding of the fracture fragments. There is widening of the left acromioclavicular joint consistent with AC joint separation. The glenohumeral joint is normal. Surgical clip seen over the base of the neck IMPRESSION: Transverse fracture midshaft of left clavicle. Left acromioclavicular joint separation.
--- NOTE | 2020-07-30 18:29 | XR_ITS ---
EXAMINATION: XR CHEST CLINICAL INFORMATION: Trauma. COMPARISON: Chest x-ray 07/24/2020 TECHNIQUE: Frontal view of the chest was obtained. 1830 hours FINDINGS: Transverse fracture of the mid-distal shaft of the clavicle. There is mild separation of the acromioclavicular joint as well. Heart size is enlarged. There are calcifications of aorta. No significant central pulmonary vascular congestion. Slight blunting right costophrenic angle due to a pleural effusion. There is no infiltrate. There is no pneumothorax. There is a hiatal hernia. Vascular stents in the soft tissues of the left upper arm. There are surgical clips in the soft tissues of the right upper arm. There are surgical clips over the elbow on the left. There are surgical clips over the central upper chest. IMPRESSION: Transverse fracture midshaft left clavicle. There is an acromioclavicular joint separation of the left shoulder as well.
[2020-07-30] MEDS: traMADoL HCL 50 MG TABLET 100 MG PO (18:42)
--- NOTE | 2020-07-30 18:43 | PC.NURSE ---
XRAYS PERFORMED, PT MEDICATED PER ORDER, PT C/O NAUSEA WILL LET PROVIDER KNOW.
--- NOTE | 2020-07-30 18:51 | CT_ITS ---
EXAM: Noncontrast CT scan of the head and cervical spine. INDICATION: Fall with head trauma COMPARISON: Head CT 02/01/2018 TECHNIQUE: Axial slices were obtained from skull base to vertex and displayed. This was followed by helical, multislice, multidetector axial images from the occiput to the upper thorax. Coronal and sagittal reformats of the cervical spine in addition to coronal reformats of the head were obtained at the technologist workstation. DLP: 1090 mGy-cm FINDINGS: HEAD: There is no evidence of acute intracranial hemorrhage or territorial infarction. Extensive encephalomalacia changes within the left parietal occipital lobes with ex vacuo dilatation of the posterior horn of the left ventricle. No abnormal mass effect or midline shift is appreciated. Alarcon-white differentiation is otherwise well preserved. No extra-axial fluid collections. There is similar generalized parenchymal atrophy. There are areas of low density in the periventricular and subcortical white matter, most consistent with sequelae of microvascular ischemic change. The osseous structures and soft tissues are normal. There is mild to moderate calcifications of the cavernous internal carotid arteries.. Mild mucosal thickening of the maxillary sinuses. SPINE: Diffuse sclerotic changes of the bones suggestive of renal osteodystrophy. There is unremarkable alignment of the cervical spine. Vertebral body heights and disc spaces are well-maintained. Small posterior disc osteophyte complex at C4/C5. Normal C1/C2 articulation. Mild diffuse bilateral facet hypertrophy. Visualized portions of the upper abdomen demonstrate numerous surgical clips in the region of the thyroid gland. There are suspected right thyroid nodule. There is a moderate right-sided pleural effusion appreciated. Biapical scarring noted. IMPRESSION: 1. No acute intracranial pathology. 2.Extensive encephalomalacia changes within the left parietal occipital lobes with ex vacuo dilatation of the posterior horn of the left ventricle. 3. No fractures or dislocations of the cervical spine. 4. Diffuse sclerotic changes of the bones suggesting renal osteodystrophy. Clinical correlation recommended. 5. Suspected right thyroid nodule. 6. Moderate right-sided pleural effusion. This CT examination was performed using dose optimization techniques as appropriate, variously including the following: *Automated exposure control *Adjustment of mA and/or kV according to patient size (this includes techniques or standardized protocols for targeted exams where dose is matched to indication/reason for exam; i.e. extremities or head) *Use of iterative reconstruction technique
--- NOTE | 2020-07-30 19:15 | PC.NURSE ---
PT TO CT SCAN
[2020-07-30 19:31] VITALS: BP 128/74; PULSE 87; RESP 20; TEMP 36.7; O2SAT 93
--- NOTE | 2020-07-30 19:31 | PC.NURSE ---
PT RETURN FROM CT SCAN
--- NOTE | 2020-07-30 19:33 | PC.NURSE ---
PATIENT A&OX3, VSS, PATIENT C/O 10/10 PAIN AND NAUSEA, WILL NOTIFY PROVIDER AND CONTINUE TO MONITOR.
--- NOTE | 2020-07-30 19:49 | PC.NURSE ---
PATIENT MEDICATED FOR PAIN AND NAUSEA PER ORDER, WILL CONTINUE TO MONITOR.
[2020-07-30 19:50] VITALS: PULSE 85; RESP 20; O2SAT 98
--- NOTE | 2020-07-30 21:33 | PC.NURSE ---
patient still has c/o pain, pt tearful at times, tech in room to apply sling, will find out who patients ride home is going to be.
[2020-07-30 21:34] VITALS: BP 113/55; PULSE 84; RESP 16; TEMP 36.7; O2SAT 98
--- NOTE | 2020-07-30 21:38 | PC.NURSE ---
patient requesting pain medication, will notify provider
[2020-07-30 22:00] VITALS: BP 132/62; PULSE 86; RESP 18; TEMP 36.7; O2SAT 94
== END 2020-07-30 22:52 | disposition home or self-care (01) ==
PROVIDERS: Emergency Provider Emergency Medicine; PCP Internal Medicine
DX: S42.022A Displaced fracture of shaft of left clavicle, initial encounter for closed fracture (principal); M25.512 Pain in left shoulder; M54.2 Cervicalgia; G44.309 Post-traumatic headache, unspecified, not intractable; I10 Essential (primary) hypertension; E11.9 Type 2 diabetes mellitus without complications; W01.10XA Fall on same level from slipping, tripping and stumbling with subsequent striking against unspecified object, initial encounter; Y93.9 Activity, unspecified; Y92.009 Unspecified place in unspecified non-institutional (private) residence as the place of occurrence of the external cause; Z79.899 Other long term (current) drug therapy; F17.200 Nicotine dependence, unspecified, uncomplicated; Z71.6 Tobacco abuse counseling
CPT/HCPCS: 70450; 71045; 72125; 73000; 73030; 99284

== ENCOUNTER 2020-08-08 23:53 | Inpatient (IN) | payer OTHER, SELFPAY ==
--- NOTE | 2020-08-09 00:02 | XR_ITS ---
EXAMINATION: XR CHEST CLINICAL INFORMATION: Shortness of breath COMPARISON: 07/30/2020 TECHNIQUE: Frontal view of the chest was obtained. FINDINGS: Lung volumes are symmetric. Central vasculature and interstitium appear prominent. No focal consolidation identified. No evidence of pneumothorax or significant pleural effusion. Cardiac silhouette appears at the upper limits of normal in size. Calcification is present at the aortic arch. Redemonstrated left clavicular fracture and left axillary stent. Degenerative change at the left glenohumeral joint. Clips noted along the upper mediastinum. XR/XR chest 1V IMPRESSION: Prominent central vasculature and interstitium which may reflect congestion.
--- NOTE | 2020-08-09 00:04 | ECG_ITS ---
Test Reason : SHORTNESS OF BREATH Blood Pressure : / mmHG Vent. Rate : 083 BPM Atrial Rate : 083 BPM P-R Int : 170 ms QRS Dur : 098 ms QT Int : 414 ms P-R-T Axes : 071 080 021 degrees QTc Int : 486 ms Normal sinus rhythm Low voltage QRS Nonspecific ST abnormality Abnormal ECG When compared with ECG of 24-JUL-2020 16:55, No significant change was found Heart rate has decreased Referred By: Estefani Hernandez Electronically Signed By:AVINASH BAUMAN MD
[2020-08-09 00:15] VITALS: BP 173/82; PULSE 84; RESP 15; TEMP 37.2; BMI 49.9
--- NOTE | 2020-08-09 00:25 | ED_ITS ---
HPI - General Adult General Stated complaint: GENERAL BODY PAIN, MISSED DIALYSIS THIS WEEK Time Seen by Provider: 08/09/20 00:01 History of Present Illness HPI narrative: Patient is a 55-year-old female with a history of end-stage renal disease. Feeling weak and tired. Patient have not gone to dialysis since Sunday. No fever no chills. No chest pain or shortness of breath no amy phoresis. Patient been to the ED for the same. No coughing congestion upper respiratory symptoms. Patient does not produce urine. No chest pain. No abdominal pain. But positive generalized pain over the entire body. No vomiting. No diarrhea. No travel. Related Data Home Medications Medication Instructions Recorded Confirmed albuterol sulfate 2 puff PO QID 07/18/20 08/09/20 amlodipine 1 tab PO DAILY 07/18/20 08/09/20 calcitriol 2 cap PO TID 07/18/20 08/09/20 loratadine 1 tab PO DAILY 07/18/20 08/09/20 melatonin 1 tab PO BEDTIME 07/18/20 08/09/20 mirtazapine 1 tab PO BEDTIME 07/18/20 08/09/20 multivitamin [Daily-Tha] 1 tab PO DAILY 07/18/20 08/09/20 sertraline 1 tab PO DAILY 07/18/20 08/09/20 sevelamer carbonate 3 tab PO TID 07/18/20 08/09/20 tramadol 1 tab PO TID PRN 07/18/20 08/09/20 vit B,C-iron [id number]-zinc ox 1 tab PO DAILY 07/18/20 08/09/20 [ProRenal] Previous Rx's Medication Instructions Recorded naproxen [Naprosyn] 500 mg PO BID #20 tab 07/30/20 Allergies Allergy/AdvReac Type Severity Reaction Status Date / Time Penicillins [PENICILLINS] Allergy Unknown UNKNOWN Verified 07/18/20 00:34 piperacillin [PIPERACILLIN] Allergy Unknown UNKNOWN Verified 07/18/20 00:34 promethazine [PROMETHAZINE] Allergy Unknown UNKNOWN Verified 07/18/20 00:34 tazobactam [TAZOBACTAM] Allergy Unknown UNKNOWN Verified 07/18/20 00:34 Review of Systems Review of Systems: Positive generalized malaise Constitutional: No Weight loss, No Fever, No Chills, No Night Sweats, +Fatigue, No Malaise ENT/Mouth: No Hearing loss, No Ear Pain, No Nasal Congestion, No Sinus Pain, No Hoarseness, No sore throat, No Rhinorrhea, No Swallowing Difficulty Eyes: No Eye Pain, No Swelling, No Redness, No Foreign Body, No Discharge, No Vision Changes Cardiovascular: No Chest Pain, No SOB, No Dyspnea on Exertion, No Orthopnea, No Edema, No Palpitations Respiratory: No Cough, No Sputum, No Wheezing, No Smoke Exposure, No Dyspnea Gastrointestinal: No Nausea, No Vomiting, No Diarrhea, No Constipation, No abdominal Pain, No Hematochezia, No Melena Genitourinary: no irregular bleeding, No Dysuria, No Urinary Frequency, No Hematuria, No Urinary Incontinence, No Urgency, No Flank Pain, No Urinary Flow Changes, No Hesitancy Musculoskeletal: No joint pain, No Myalgias, No Joint Swelling Skin: No Skin Lesions, No rash Neuro: No Weakness, No Numbness, No Paresthesias, No Loss of Consciousness, No Dizziness, No Headache Psych: No Anxiety/Panic, No Depression, No SI/HI/AH/VH, No Social Issues, Heme/Lymph: No Bruising, No Bleeding,No Lymphadenopathy Endocrine: No Polyuria, No Polydipsia, No Temperature Intolerance PMFSH Past Medical History Source: old records reviewed Medical History AVF (arteriovenous fistula) Blind Cataract Diabetes mellitus End stage kidney disease HTN (hypertension), malignant Toe amputee Surgical History History of cholecystectomy Hx of appendectomy Social History Social History Household Members: Children Housing: House Alcohol intake: never Smoking Status: Never smoker Tobacco Type: Cigarette Packs Per Day: 0.25 Cigarettes Per Day: 5.0 Years Smoked: >30 Use of substances other than those prescribed or required for medical reasons: No Advance Directives: No Advance Directives Information Provided: Yes Physical Exam Vital Signs: Vital Signs: Vital Signs Temp Pulse Resp BP Pulse Ox 08/09/20 01:21 98.9 F 78 15 178/56 H 98 08/09/20 00:15 98.9 F 84 15 173/82 H Body Mass Index 49.9 Medical Decision Making MDM Narrative Medical decision making narrative: patient's pH came back in a 7.15 range. Patient's electrolytes showed a grossly elevated BUN creatinine. In addition patient has a potassium of 6.6. EKG did not show any acute T-wave that was peak. There is no widened QRS. Given patient's history of end-stage renal disease history of potassium will elect to give patient calcium gluconate. Will also start patient on insulin. Will discuss the case with Nephrology. Patient's chest x-ray showed pulmonary edema. Consistent with fluid overload. Will start patient on 100 mg of Lasix. Patient been on a monitor. Will admit patient to the hospitalist service. Will get patient dialysis a sap. Nephrology service was contacted. Lab Data Result diagrams: 08/09/20 00:29 08/09/20 00:29 Labs: Lab Results 08/09/20 08/09/20 08/09/20 Range/Units 00:29 00:29 00:29 PT 15.7 H (10.8-13.0) SEC INR 1.3 H (0.9-1.1) VBG pH 7.14 L* (7.32-7.43) Sodium 139 (135-145) mmol/L Potassium 6.6 H* (3.3-5.1) mmol/l Chloride 96 (96-108) mmol/L Carbon Dioxide 19 L (22-29) mmol/L Anion Gap 31 H (12-20) BUN 119 H* D (9-16) mg/dL Creatinine 15.83 H* (0.5-1.4) mg/dL Estim Creat Clear Calc 4.9 Estimated GFR 2 Random Glucose 137 H (60-115) mg/dL Calcium 7.5 L (8.4-10.2) mg/dL Phosphorus 9.5 H (2.7-4.5) mg/dL Magnesium 2.7 H (1.6-2.6) mg/dL Total Bilirubin 0.8 (0.0-1.0) mg/dL Direct Bilirubin 0.3 (0.0-0.5) mg/dL AST 9 D (5-31) U/L ALT 6 (0-31) U/L Alkaline Phosphatase 452 H D (39-117) U/L Total Protein 6.9 (6.5-8.0) g/dL Albumin 3.6 (3.5-5.0) g/dL Critical Care Time Critical Care Time Critical Care Time: Yes Total Critical Care Time: 120 Attestation: I have personally provided 40 minutes of critical care time exclusive of time spent on separately billable procedures. Time includes review of lab data, radiology results, discussion with consultants, and monitoring for potential decompensation. Interventions were performed as documented above Discharge Plan Discharge Prescriptions: No Action multivitamin [Daily-Tha] Tablet 1 tab PO DAILY RF: 0 tramadol 50 mg tablet 1 tab PO TID PRN (Reason: Pain, Moderate) RF: 0 amlodipine 10 mg tablet 1 tab PO DAILY RF: 0 mirtazapine 30 mg tablet 1 tab PO BEDTIME RF: 0 calcitriol 0.5 mcg capsule 2 cap PO TID RF: 0 albuterol sulfate 90 mcg/actuation HFA aerosol inhaler 2 puff PO QID RF: 0 sertraline 50 mg tablet 1 tab PO DAILY RF: 0 loratadine 10 mg tablet 1 tab PO DAILY RF: 0 sevelamer carbonate 800 mg tablet 3 tab PO TID RF: 0 melatonin 5 mg tablet 1 tab PO BEDTIME RF: 0 ProRenal 8 mg iron-800 mcg-1,000 unit tablet 1 tab PO DAILY RF: 0 naproxen [Naprosyn] 500 mg tablet 500 mg PO BID Qty: 20 RF: 0
[2020-08-09 00:40] LABS: INTERNATIONAL NORM RATIO 1.3 (0.9-1.1); Prothrombin Time 15.7 SEC (10.8-13.0)
[2020-08-09 00:44] LABS: pH VBG 7.14 (7.32-7.43)
[2020-08-09 01:21] VITALS: BP 178/56; PULSE 78; RESP 15; TEMP 37.2; O2SAT 98
[2020-08-09 01:24] LABS: Alanine Aminotransferase 6 U/L (0-31); Albumin Level 3.6 g/dL (3.5-5.0); Alkaline Phosphatase 452 U/L (39-117); Anion Gap 31 (12-20); Aspartate Amino Transferase 9 U/L (5-31); Bilirubin Direct 0.3 mg/dL (0.0-0.5); Bilirubin Total 0.8 mg/dL (0.0-1.0); Blood Urea Nitrogen 119 mg/dL (9-16); Calcium 7.5 mg/dL (8.4-10.2); Carbon Dioxide 19 mmol/L (22-29); Chloride 96 mmol/L (96-108); Creatinine Clr Calc Pharmacy 4.9; Estimated Glomerular Filt Rate 2; Glucose Random 137 mg/dL (60-115); Magnesium 2.7 mg/dL (1.6-2.6); Phosphorus 9.5 mg/dL (2.7-4.5); Potassium 6.6 mmol/l (3.3-5.1); Sodium 139 mmol/L (135-145); Total Protein 6.9 g/dL (6.5-8.0)
[2020-08-09] MEDS: Calcium Gluconate/NaCl,Iso-Osm 1 GM/50 ML PLAST..BAG IV (02:18)
[2020-08-09] MEDS: Insulin Regular, Human 100 UNIT/ML 3 ML VIAL IVPUSH (02:18)
[2020-08-09] MEDS: Sodium Bicarbonate 8.4% 150 MEQ in Dextrose 5 % 850 ML 50 MEQ IV (02:19)
[2020-08-09] MEDS: Furosemide 100 MG/10 ML VIAL IVPUSH (02:27)
--- NOTE | 2020-08-09 02:34 | PC.NURSE ---
PATIENT MEDICATED PER EMAR NOTED
--- NOTE | 2020-08-09 02:38 | PC.NURSE ---
HOSPITALIST AT BEDSIDE FOR EVALUATION. PLAN IS FOR ADMISSION
--- NOTE | 2020-08-09 03:20 | PC.NURSE ---
This parts data writer collected covid swab the same time labs were drawn and serology is not resulted no
--- NOTE | 2020-08-09 03:21 | PC.NURSE ---
This proposal lead writer collected a stat covid swab as well as labs at the same time. Labs have been resulted but no covid swab results are available. Multiple attempts to call laboratory and there is no answer at the lab.
--- NOTE | 2020-08-09 03:57 | PM.IMHP ---
History of Present Illness Date of Service: 08/09/20 Chief Complaint: Missed dialysis this is a 55-year-old female with past medical history of end-stage renal disease on dialysis, diabetes, hypertension with a frequent presentation to the hospital for missed dialysis presents to the hospital today stating that she has not had dialysis done in 3 weeks. Patient reports the only time she undergoes dialysis when she presents to the hospital acutely. She is complaining of pain all over the body. She is not completely and a uric and denies any urinary symptoms including no urgency frequency or dysuria. She has no fever or chills. She has no abdominal pain nausea or vomiting. No diarrhea or constipation. No lower extremity edema. She just feels weak all over and missed dialysis. states that she is too weak to go to dialysis on arrival to the ED hemodynamically stable but hypertensive Labs are significant for pH of 7.14, potassium of 6.6 with no EKG changes, BUN of 119, creatinine of 15.83, phosphorus of 9.5, magnesium 2.7, COVID-19 negative chest x-ray shows volume overload seam press operator consulted and patient will be undergoing stat dialysis past medical history: End-stage renal disease on dialysis Sunday, diabetes, hypertension, Past surgical history: toe amputation, shunt placement, cholecystectomy Family history: Denies Social history: Comes from home, currently an active smoker, denies any alcohol or illicit drug use Review of Systems Review of Systems: Yes all other systems are reviewed and are negative [facility] Medical History AVF (arteriovenous fistula) Blind Cataract Diabetes mellitus End stage kidney disease HTN (hypertension), malignant Toe amputee Surgical History History of cholecystectomy Hx of appendectomy Social History Household Members: Children Housing: Apartment Do you presently have visiting nurse or other home services: No Alcohol intake: never Smoking Status: Never smoker Tobacco Type: Cigarette Packs Per Day: 0.25 Cigarettes Per Day: 5.0 Years Smoked: >30 Use of substances other than those prescribed or required for medical reasons: No Have you been hit, kicked, punched, or otherwise hurt by someone within the past year? If so, by whom?: No Do you feel safe in your current relationship?: No Current Relationship Is there a partner from a previous relationship who is making you feel unsafe now?: No Are you made to feel afraid or neglected: No Advance Directives: No Advance Directives Information Provided: Yes Advance Directives on File: No Do you have thoughts of harming others: None Do you have a plan to hurt others: No Plan Recently lost weight without trying: No Meds Allergies Allergy/AdvReac Type Severity Reaction Status Date / Time Penicillins [PENICILLINS] Allergy Unknown UNKNOWN Verified 07/18/20 00:34 piperacillin [PIPERACILLIN] Allergy Unknown UNKNOWN Verified 07/18/20 00:34 promethazine [PROMETHAZINE] Allergy Unknown UNKNOWN Verified 07/18/20 00:34 tazobactam [TAZOBACTAM] Allergy Unknown UNKNOWN Verified 07/18/20 00:34 Home Medications Medication Instructions Recorded Confirmed Type albuterol sulfate 2 puff PO QID 07/18/20 08/09/20 History amlodipine 1 tab PO DAILY 07/18/20 08/09/20 History calcitriol 2 cap PO TID 07/18/20 08/09/20 History loratadine 1 tab PO DAILY 07/18/20 08/09/20 History melatonin 1 tab PO BEDTIME 07/18/20 08/09/20 History mirtazapine 1 tab PO BEDTIME 07/18/20 08/09/20 History multivitamin [Daily-Tha] 1 tab PO DAILY 07/18/20 08/09/20 History sertraline 1 tab PO DAILY 07/18/20 08/09/20 History sevelamer carbonate 3 tab PO TID 07/18/20 08/09/20 History tramadol 1 tab PO TID PRN 07/18/20 08/09/20 History vit B,C-iron yos-FA-S5-zinc ox 1 tab PO DAILY 07/18/20 08/09/20 History [ProRenal] Physical Exam Vital Signs and Narrative: Vital Signs: Last Vital Signs Temp 98.9 F 08/09/20 01:21 Pulse 78 08/09/20 01:21 Resp 15 08/09/20 01:21 BP 178/56 H 08/09/20 01:21 Pulse Ox 98 08/09/20 01:21 Body Mass Index 49.9 Const: General: cooperative and no acute distress Orientation/consciousness: patient oriented x3 Eyes: Other: blind in left eye Resp: Effort & Inspection: normal respiratory effort and able to speak in complete sentences Auscultation: clear to auscultation bilaterally Cardio: Rate: regular rate Rhythm: regular rhythm GI: Palpation (GI): Soft to palpation Auscultation: normal bowel sounds Skin: General skin exam: no rashes or lesions noted Neuro: General: patient oriented x3 Cognition (Neuro): normal cognition Extrem: General: Yes normal to inspection and Yes no pedal edema Results Labs Labs: Laboratory Tests 08/09/20 08/09/20 08/09/20 00:29 00:29 00:29 PT 15.7 H INR 1.3 H VBG pH 7.14 L* Sodium 139 Potassium 6.6 H* Chloride 96 Carbon Dioxide 19 L Anion Gap 31 H BUN 119 H* D Creatinine 15.83 H* Estim Creat Clear Calc 4.9 Estimated GFR 2 Random Glucose 137 H Calcium 7.5 L Phosphorus 9.5 H Magnesium 2.7 H Total Bilirubin 0.8 Direct Bilirubin 0.3 AST 9 D ALT 6 Alkaline Phosphatase 452 H D Total Protein 6.9 Albumin 3.6 Imaging Chest x-ray: Radiologist's impression: IMPRESSION: Prominent central vasculature and interstitium which may reflect congestion. Assessment and Plan (1) ESRD (end stage renal disease): Status: Acute (2) Anemia: Qualifiers: Anemia type: due to chronic kidney disease Chronic kidney disease stage: on chronic dialysis Qualified Code(s): N18.6 - End stage renal disease; D63.1 - Anemia in chronic kidney disease; Z99.2 - Dependence on renal dialysis Status: Acute (3) Acidosis: Status: Acute (4) Acute hyperkalemia: Status: Acute (5) Electrolyte abnormality: Status: Acute (6) HTN (hypertension), malignant: Status: Acute (7) Diabetes mellitus: Status: Acute 55-year-old female who presents to the hospital after room missed dialysis for the past 3 weeks. # ESRD on dialysis with multiple missed sessions - patient hyperkalemic, has metabolic acidosis as a result,hyperphosphatemia plan: - Nephrology is consulted and patient is undergoing stat dialysis at this time # hyperkalemia - no evidence of EKG changes - due to missed dialysis plan: - Undergoing dialysis at this time - will repeat BMP post dialysis - telemetry # metabolic acidosis - secondary to renal failure - undergoing dialysis - will repeat ABG post dialysis # electrolyte abnormality - secondary to ESRD and missed dialysis # diabetes - will place on low-dose sliding scale insulin - diabetic diet # hypertension - elevated - will monitor DVT prophylaxis: Heparin date of service 08/09/2020
[2020-08-09 04:14] VITALS: BP 141/67; PULSE 83; RESP 15; O2SAT 100
--- NOTE | 2020-08-09 04:17 | PC.NURSE ---
Addendum entered by Danica Hicks 08/09/20 04:40: When this mortgage underwriter called to give report I was informed that the RN was in a room but would call me back henri Original Note: CALL TO FLOOR TO GIVE REPORT
--- NOTE | 2020-08-09 04:25 | PC.NURSE ---
This advertising writer called the floor to let them know that the diaysis Rn was on her way to the hospital to give the patient an emergent dialysis treatment due to hyperkalemia.
--- NOTE | 2020-08-09 04:25 | PC.NURSE ---
Dialysis nurse called to inform her what the bed assignment and room number.
--- NOTE | 2020-08-09 04:58 | PC.NURSE ---
REPORT GIVEN TO THE FLOOR AND PATIENT IS READY FOR TRANSPORT TO FLOOR
[2020-08-09 05:20] LABS: SARS COV2 PCR INHOUSE NEGATIVE (Negative)
[2020-08-09 05:45] VITALS: BMI 22.6
--- NOTE | 2020-08-09 05:54 | PC.NURSE ---
PT ARRIVED TO [facility] FROM ED VIA STRETCHER WITH HYPERKALEMIA, FLUID OVERLOAD. PT TRANSFERRED TO BED BY STAFF WITHOUT DIFFICULTY. VSS. PLAN OF CARE EXPLAINED. PT NOT VERY RECEPTIVE TO EDUCATION. PT ORIENTED TO ROOM/UNIT. COVID TEST NEGATIVE. HIGH FALL PROTOCOL INITIATED. BAND/SOCKS APPLIED. CALL [facility] USE EXPLAINED. PT HAS NO QUESTIONS AT THIS TIME. CALL [facility] INR EACH. BED ALARM ON. PT IS SR ON THE MONITOR 70S-80S.
[2020-08-09 06:12] VITALS: BP 158/69; PULSE 63; RESP 18; TEMP 36.6; O2SAT 96
[2020-08-09] MEDS: Heparin Sodium,Porcine 5,000 UNIT/ML VIAL 5000 UNIT SUBCUT (06:17)
[2020-08-09] MEDS: traMADoL HCL 50 MG TABLET PO (06:17)
[2020-08-09 07:28] VITALS: O2SAT 98
[2020-08-09 07:40] LABS: Pt Ventilation O2% ROOM AIR
[2020-08-09 07:53] LABS: ABG PCO2 37 mmhg (32-45); HCO3 ABG 22 mmol/l (22-26); Oxygen Saturation ABG 94.2 %; PO2 ABG 76 mmhg (83-108); pH ABG 7.39 (7.35-7.45)
[2020-08-09 08:17] LABS: Glucose, Whole Blood 128 mg/dL (60-115)
--- NOTE | 2020-08-09 10:37 | W.PM.DNNEP ---
Subjective Subjective This patient was seen during dialysis. Physical Exam Vital Signs: Vital Signs: Vital Signs Temp Pulse Resp BP Pulse Ox 08/09/20 06:12 98 F 63 18 158/69 H 96 08/09/20 04:14 83 15 141/67 H 100 08/09/20 01:21 98.9 F 78 15 178/56 H 98 08/09/20 00:15 98.9 F 84 15 173/82 H Body Mass Index 22.6 oral moist mucosa lungs decreased BSs ext +edema, LUE AVF OK neuro lethargic but arousable Assessment & Plan Assessment and plan (1) ESRD (end stage renal disease): Problem details: HD as ordered today 1 K bath Status: Acute (2) Acute hyperkalemia: Problem details: managed with HD, Keep strict Low K diet Status: Acute Assessment and Plan: from renal stand pont pt can be DC back home today after dialysis, if no other active medical issues, i alerted [facility] [phone] center to call her for arrangements for HD tomorrow as per her usual regimen at [facility] dialysis AVOID narcotics if pt would agree could consider pain gment referral for suboxone trial. Time Spent With Patient Time: Total time spent is greater than 50% in coordination of care (as documented) at patient's floor/unit and/or counseling patient:
--- NOTE | 2020-08-09 12:39 | MHC.CM.PN ---
IMM 08/09/20 Female 55 DX Volume overload and hyper K+ due to missed HD. She lives with family. She requires assist/AD functional mobility. Pt received HD this AM. She is resting comfortably in room. DP home with resumption of CCA via [facility] transport.
--- NOTE | 2020-08-09 16:01 | PM.EVENT ---
Event Note Event Note: Day Team Follow up S Seen this AM during dialysis and then again this afternoon. Has been refusing vitals and meds. Long discussion regarding wishes -- tells me she will comply. O Vitals - last documented Gen - NAD CVS - S1S2 Lungs - No distress Neuro - Non-focal A/P 55 yo F with a history of ESRD on Dialysis, non-compliant with treatment admitted for fluid overload, hyperK -- 2/2 to non compliance with dialysis dialysis completed early this morning. observe today and then discharge tomorrow AM if stable continue other home meds stop narcotics -- on tramadol at home, will continue this
--- NOTE | 2020-08-09 17:11 | PC.NURSE ---
Pt signing out AMA. MD at bedside to explain the risks of leaving AMA and pt verbalizes understanding of the risks involved. Pt refuses to sign AMA paperwork. trimming press operator removed, IV removed.
--- NOTE | 2020-08-09 18:19 | PM.EVENT ---
Event Note Event Note: Notified by RN that patient woke up and wanted to leave. Pt seen and examined. Wants to leave AMA but refuses to sign paper. Explained the risks of leaving AMA including but not limited to worsening of her respiratory symptoms, cardiac Arrhythmia and ultimately even . She is AAOx3 and able make these decisions. Informed that she should return to the hospital should she change her mind. Also advised her to comply with her schduled dialysis. Leaves AMA without signing paperwork.
--- NOTE | 2020-08-09 18:21 | PM.EVENT ---
Event Note Event Note: Patient left AMA Discharge diagnosis: 1. ESRD 2. HyperK 3. Metabolic acidosis 4. DM 5. HTN 6. Non-Compliance with medical treatment
--- NOTE | 2020-08-09 21:31 | CONS_ITS ---
DATE OF SERVICE: REASON FOR CONSULTATION: Evaluation of end-stage kidney disease, admitted with hyperkalemia. HISTORY OF PRESENT ILLNESS: Ms. Goyal is a pleasant 55-year-old female with history of end-stage kidney disease secondary to diabetic nephropathy with multiple comorbid conditions including hypertension, type 2 diabetes mellitus, anemia, who undergoes intermittent hemodialysis at the [facility] on Sunday, Sunday, and Sunday. Unfortunately, she has been very noncompliant for quite some time. Recently, she moved to [facility], missed dialysis for a couple of weeks and returned to [place], missed dialysis for a week, and more recently last dialysis session was last Sunday. She came to the emergency room last night as she was feeling very weak, fatigued, and complaining of pain all over. She was found to have a potassium level of 6.6 with a BUN of 119 mg/dL. She had a pH of 7.39. She was admitted for further evaluation and management of hyperkalemia as well as dialysis. PAST MEDICAL HISTORY: As mentioned above. Other history includes depression, poor social demographic support, type 2 diabetes mellitus, hypertension, prior history of tobacco use. OUTPATIENT MEDICATIONS: Include amlodipine 10 mg daily, calcitriol 0.25 mcg daily, Lanthanum carbonate 2 tablets 3 times a day with meals, sertraline 1 tablet daily, gabapentin 100 mg 3 times a day. ALLERGIES: PENICILLIN, PIPERACILLIN, PROMETHAZINE, AND TAZOBACTAM. FAMILY HISTORY: Noncontributory. REVIEW OF SYSTEMS: Presently, she reports no nausea, vomiting, diarrhea, abdominal pain, melena, headache, visual changes, chest pain, shortness of breath, palpitations, cough, hemoptysis, or hematemesis. Denies any bright red blood per rectum. She reports significant pain in her body. Denies shortness of breath or dyspnea at rest. Rest of the 10-point review of systems negative. PHYSICAL EXAMINATION: GENERAL: She is lethargic but arousable. VITAL SIGNS: Her blood pressure is 158/69, oxygen saturation 96% on room air, respiratory rate 16 per minute, pulse rate 63 per minute, temperature 98. HEENT: Oral: Dry mucosa. NECK: Reveals no jugular venous distention. LUNGS: Clear. Decreased breath sounds at the bases. HEART: S1, S2. No rub. ABDOMEN: Soft, nontender. Positive bowel sounds. EXTREMITIES: Show 2+ ankle edema. Left upper extremity AV fistula, positive thrill. NEUROLOGICAL: Lethargy, arousable. Moves 4 extremities spontaneously. XRAY DATA: Chest x-ray showed increased vascular congestion. Laboratory as mentioned above. IMPRESSIONS: Ms. Goyal is a pleasant 55-year-old female with known medical history of end-stage kidney disease, poorly compliant with dialysis treatment, very poor social demographic support, who was reaching attention at the emergency room for evaluation of increased body aches of unclear etiology. The workup so far is unrevealing except for significant hyperkalemia and metabolic acidosis as a result of lack of dialysis. Fortunately she was tested negative for coronavirus. Imaging studies consistent with fluid overload. PLAN: We will plan for dialysis today urgently as she has been ordered. The patient had no EKG changes of concern. Therefore, we will continue with low-potassium diet and manage potassium with dialysis bath. Type 2 diabetes mellitus and hypertension, resume her outpatient regimen. Increased pain and chronic opioid dependency, unclear causes of pain. Unfortunately, she has been looking for opioid prescriptions in different setting, so I would ask to be cautious. If need be, consult Psychiatry or Pain Management Department. With your permission, we will continue to follow during hospital stay. If there is no other indication for admission, she can be safely discharged from the renal standpoint to have outpatient dialysis tomorrow on Monday, August 10, 2020. Thank you for allowing me to participate in her care. MD DIEGO Jones/QUINN / [id number]
== END 2020-08-09 18:13 | disposition left against medical advice (07) | DRG 682 ==
LOC: HO.ED 08-09 02:08 → HO.IMC 08-09 04:14
PROVIDERS: Admitting Provider Internal Medicine; Emergency Provider Emergency Medicine Emergency Medical Services; PCP Internal Medicine; Visit Provider Family Medicine
DX: I12.0 Hypertensive chronic kidney disease with stage 5 chronic kidney disease or end stage renal disease (principal); N18.6 End stage renal disease; E87.2 Acidosis; F17.210 Nicotine dependence, cigarettes, uncomplicated; Z71.6 Tobacco abuse counseling; E11.22 Type 2 diabetes mellitus with diabetic chronic kidney disease; D63.1 Anemia in chronic kidney disease; E87.5 Hyperkalemia; Z20.828 Contact with and (suspected) exposure to other viral communicable diseases; Z91.15 Patient's noncompliance with renal dialysis; Z99.2 Dependence on renal dialysis; Z88.0 Allergy status to penicillin; Z79.899 Other long term (current) drug therapy
CPT/HCPCS: 36415; 36600; 71045; 80048; 80076; 82800; 82803; 82947; 83735; 84100; 85610; 87635; 90999; 93005; 96365; 96366; 96375; 99285; 99291; 99292; J0610; J1940

== ENCOUNTER 2020-08-11 23:52 | Inpatient (IN) | payer OTHER, SELFPAY ==
--- NOTE | 2020-08-11 23:55 | ECG_ITS ---
Test Reason : FEVER Blood Pressure : / mmHG Vent. Rate : 088 BPM Atrial Rate : 088 BPM P-R Int : 146 ms QRS Dur : 082 ms QT Int : 384 ms P-R-T Axes : 073 079 084 degrees QTc Int : 464 ms Normal sinus rhythm Nonspecific T wave abnormality Abnormal ECG When compared with ECG of 09-AUG-2020 00:52, Nonspecific T wave abnormality now evident in Anterior leads Referred By: Harlan Toth Electronically Signed By:AVINASH BAUMAN MD
--- NOTE | 2020-08-11 23:56 | XR_ITS ---
EXAMINATION: XR CHEST CLINICAL INFORMATION: Fever COMPARISON: 08/09/2020 TECHNIQUE: Frontal view of the chest was obtained. FINDINGS: Heart size upper limits of normal. Again seen are interstitial infiltrates, slightly increased when compared to the prior study no lung masses or pleural effusions are seen surgical clips noted in the upper mediastinum. XR/XR chest 1V IMPRESSION: Slight worsening of interstitial changes could represent edema/CHF. Given the presence of fever, underlying infiltrates cannot be excluded.
[2020-08-12] VITALS (12 sets, daily range): BP systolic 136–191; BP diastolic 68–89; PULSE 80–103; RESP 18–22; TEMP 36.6–38.8; O2SAT 92–100; BMI 23.8
--- NOTE | 2020-08-12 00:18 | PC.NURSE ---
pt arrives via ems from home for complaints of altered mental noted by family. ems was called initially for a fall that was unwitnessed. pt is a dilysis patient. right sided fistula. pt uncooperative, unwilling to spinning frame changer, wants warm blankets although she has a temp. pt neuro otherwise intact, answering yes or no to questions. pt following commands when warranted. ej placed by ajit smith at this time. cultures and labs sent.
[2020-08-12] MEDS: cefTRIAXone sodium 1 GM in 0.9 % Sodium Chloride 50 ML IV (00:29)
[2020-08-12] MEDS: Acetaminophen Oral Liquid 650 MG/20.3 ML SOLUTION PO (00:29)
[2020-08-12] MEDS: 0.9 % Sodium Chloride 500 ML IV (00:30)
[2020-08-12 00:33] LABS: Basophils Percent Auto 0.1 % (0-2); Eosinophils Percent Auto 0.1 % (0-4); Hemoglobin 10.6 g/dl (12.0-16.0); Lymphocytes Absolute Auto 0.4 X10*3/uL (1.2-4.9); MANUAL DIFF FLAG SCAN; Mean Corpuscular Volume 88.8 fL (80-98); Monocytes Percent Auto 3.1 % (2-11); Neutrophils Percent Auto 93.2 % (45-73); PLT CLUMP 1; Red Cell Distribution Width 15.7 % (11.0-16.0); SCAN SMEAR FLAG 1
[2020-08-12 00:35] LABS: Hematocrit 32.4 % (37-47); Imm Gran Abs Auto 0.11 X10*3/uL (0.00-0.03); Imm Gran Pct Auto 0.7 % (0.0-0.4); Lymphocytes Percent Auto 2.8 % (20-40); Mean Corpuscular HGB Conc 32.7 g/dl (31.0-35.0); Mean Platelet Volume 10.3 fL (9.4-12.3); Monocytes Absolute Auto 0.5 X10*3/uL (0.1-1.2); Neutrophils Absolute Auto 14.2 X10*3/uL (2.0-8.3); Platelet Count 126 X10*3/uL (160-400); Red Blood Count 3.65 X10*6/uL (4.20-5.50); White Blood Count 15.3 X10*3/uL (4.8-10.8)
[2020-08-12 00:42] LABS: INTERNATIONAL NORM RATIO 1.4 (0.9-1.1); Prothrombin Time 16.2 SEC (10.8-13.0)
[2020-08-12 00:44] LABS: Partial Thromboplastin Time 33.9 SEC (24.1-38.0)
[2020-08-12 00:52] LABS: Lactic Acid 1.5 mmol/L (0.5-2.0)
[2020-08-12 00:57] LABS: Anion Gap 24 (12-20); Blood Urea Nitrogen 49 mg/dL (9-16); Calcium 6.6 mg/dL (8.4-10.2); Carbon Dioxide 25 mmol/L (22-29); Chloride 94 mmol/L (96-108); Creatinine Clr Calc Pharmacy 4.4; Estimated Glomerular Filt Rate 4; Glucose Random 97 mg/dL (60-115); Sodium 138 mmol/L (135-145)
[2020-08-12 01:02] LABS: SLIDE REVIEW VERIFIED
--- NOTE | 2020-08-12 01:03 | ED_ITS ---
HPI - General Adult General Chief complaint: Fever Stated complaint: sepsis? Time Seen by Provider: 08/11/20 23:54 Source: patient and EMS Mode of arrival: EMS Limitations: no limitations History of Present Illness HPI narrative: feeling weak and fever temperature of 103 degrees on arrival. Patient with history of substance abuse renal failure on dialysis last dialysis was on 08/09 was admitted at that time and left AMA been feeling very weak today fell of the bed without any significant injuries patient is very poor historian Related Data Home Medications Medication Instructions Recorded Confirmed albuterol sulfate 2 puff PO QID 07/18/20 08/09/20 amlodipine 1 tab PO DAILY 07/18/20 08/09/20 calcitriol 2 cap PO TID 07/18/20 08/09/20 loratadine 1 tab PO DAILY 07/18/20 08/09/20 melatonin 1 tab PO BEDTIME 07/18/20 08/09/20 mirtazapine 1 tab PO BEDTIME 07/18/20 08/09/20 multivitamin [Daily-Tha] 1 tab PO DAILY 07/18/20 08/09/20 sertraline 1 tab PO DAILY 07/18/20 08/09/20 sevelamer carbonate 3 tab PO TID 07/18/20 08/09/20 tramadol 1 tab PO TID PRN 07/18/20 08/09/20 vit B,C-iron ujd-UY-N2-zinc ox 1 tab PO DAILY 07/18/20 08/09/20 [ProRenal] Previous Rx's Medication Instructions Recorded naproxen [Naprosyn] 500 mg PO BID #20 tab 07/30/20 Allergies Allergy/AdvReac Type Severity Reaction Status Date / Time Penicillins [PENICILLINS] Allergy Unknown UNKNOWN Verified 07/18/20 00:34 piperacillin [PIPERACILLIN] Allergy Unknown UNKNOWN Verified 07/18/20 00:34 promethazine [PROMETHAZINE] Allergy Unknown UNKNOWN Verified 07/18/20 00:34 tazobactam [TAZOBACTAM] Allergy Unknown UNKNOWN Verified 07/18/20 00:34 Review of Systems Review of Systems: Yes Other ( very poor historian) [facility] Past Medical History Medical History AVF (arteriovenous fistula) Blind Cataract Diabetes mellitus End stage kidney disease HTN (hypertension), malignant Toe amputee Surgical History History of cholecystectomy Hx of appendectomy Social History Social History Household Members: Children Housing: Apartment Alcohol intake: never Smoking Status: Never smoker Tobacco Type: Cigarette Packs Per Day: 0.25 Cigarettes Per Day: 5.0 Years Smoked: >30 Advance Directives: No Advance Directives Information Provided: No service: No Current occupational status: disabled Physical Exam Vital Signs: Vital Signs: Vital Signs Temp Pulse Resp BP Pulse Ox 08/12/20 01:07 100.8 F H 94 18 148/73 H 99 08/12/20 00:00 101.8 F H 103 H 18 191/89 H 100 Body Mass Index 23.8 VITAL SIGNS: Reviewed. GENERAL: lethargic temperature of 101.8 oral HEAD: Normocephalic/atraumatic, EYES: PERRLA No pallor/icterus noted EARS: Ext canals without abnormality NOSE: Nares patent bilateral OROPHARYNX: Oral mucosa moist no oral lesions NECK: Supple, no adenopathy LUNGS: Normal clear entry bilateral with conducted sounds diffuse CARDIOVASCULAR: Regular rate and rhythm without noted murmurs, no JVD or lower extremity edema. ABDOMEN: Soft, non-tender, non-distended with bowel sounds. No rigidity. No guarding. No palpable masses or hernias noted MUSCULOSKELETAL: No tenderness, deformities, EXTREMITIES: No cyanosis or edema. left AV fistula with bruit SKIN: no rashes, ulcerations, jaundice, pallor, or petechiae NEUROLOGIC: Alert and oriented x 2 very sleepy. Strength and sensation to light touch were grossly intact Course Reevaluation(s) Reevaluation #1: patient with sepsis high fever chest x-ray showed chronic changes possible infiltrate patient dialysis patient could be source from dialysis. Will admit patient for IV antibiotics vancomycin and Rocephin check the urine and COVID-19. Patient had previous COVID-19 done at least 4 times negative Medical Decision Making Lab Data Result diagrams: 08/12/20 00:25 08/12/20 00:25 Labs: Lab Results 08/12/20 08/12/20 08/12/20 Range/Units 00:25 00:25 00:25 WBC 15.3 H (4.8-10.8) X10*3/uL RBC 3.65 L (4.20-5.50) X10*6/uL Hgb 10.6 L (12.0-16.0) g/dl Hct 32.4 L (37-47) % MCV 88.8 (80-98) fL MCH 29.0 (27.0-33.0) pg MCHC 32.7 (31.0-35.0) g/dl RDW 15.7 (11.0-16.0) % Plt Count 126 L (160-400) X10*3/uL MPV 10.3 (9.4-12.3) fL Immature Gran % (Auto) 0.7 H (0.0-0.4) % Neut % (Auto) 93.2 H (45-73) % Lymph % (Auto) 2.8 L (20-40) % Phillips % (Auto) 3.1 (2-11) % Eos % (Auto) 0.1 (0-4) % Baso % (Auto) 0.1 (0-2) % Lymph # (Auto) 0.4 L (1.2-4.9) X10*3/uL Phillips # (Auto) 0.5 (0.1-1.2) X10*3/uL Eos # (Auto) 0.0 (0.0-0.4) X10*3/uL Baso # (Auto) 0.0 (0.0-0.2) X10*3/uL Abs Immat Gran (auto) 0.11 H (0.00-0.03) X10*3/uL Absolute Neuts (auto) 14.2 H (2.0-8.3) X10*3/uL Absolute Nucleated RBC 0.000 (0.0-0.012) X10*3/uL Nucleated RBC % (auto) 0.0 (0.0-0.2) /100WBC Smear Tech's Comments VERIFIED PT 16.2 H (10.8-13.0) SEC INR 1.4 H (0.9-1.1) APTT 33.9 (24.1-38.0) SEC Sodium 138 (135-145) mmol/L Potassium 5.0 D (3.3-5.1) mmol/l Chloride 94 L (96-108) mmol/L Carbon Dioxide 25 (22-29) mmol/L Anion Gap 24 H (12-20) BUN 49 H D (9-16) mg/dL Creatinine 9.92 H* (0.5-1.4) mg/dL Estim Creat Clear Calc 4.4 Estimated GFR 4 Random Glucose 97 (60-115) mg/dL Lactic Acid (0.5-2.0) mmol/L Calcium 6.6 L (8.4-10.2) mg/dL Total Bilirubin (0.0-1.0) mg/dL Direct Bilirubin (0.0-0.5) mg/dL AST (5-31) U/L ALT (0-31) U/L Alkaline Phosphatase (39-117) U/L Total Protein (6.5-8.0) g/dL Albumin (3.5-5.0) g/dL 08/12/20 08/12/20 Range/Units 00:25 00:25 WBC (4.8-10.8) X10*3/uL RBC (4.20-5.50) X10*6/uL Hgb (12.0-16.0) g/dl Hct (37-47) % MCV (80-98) fL MCH (27.0-33.0) pg MCHC (31.0-35.0) g/dl RDW (11.0-16.0) % Plt Count (160-400) X10*3/uL MPV (9.4-12.3) fL Immature Gran % (Auto) (0.0-0.4) % Neut % (Auto) (45-73) % Lymph % (Auto) (20-40) % Phillips % (Auto) (2-11) % Eos % (Auto) (0-4) % Baso % (Auto) (0-2) % Lymph # (Auto) (1.2-4.9) X10*3/uL Phillips # (Auto) (0.1-1.2) X10*3/uL Eos # (Auto) (0.0-0.4) X10*3/uL Baso # (Auto) (0.0-0.2) X10*3/uL Abs Immat Gran (auto) (0.00-0.03) X10*3/uL Absolute Neuts (auto) (2.0-8.3) X10*3/uL Absolute Nucleated RBC (0.0-0.012) X10*3/uL Nucleated RBC % (auto) (0.0-0.2) /100WBC Smear Tech's Comments PT (10.8-13.0) SEC INR (0.9-1.1) APTT (24.1-38.0) SEC Sodium (135-145) mmol/L Potassium (3.3-5.1) mmol/l Chloride (96-108) mmol/L Carbon Dioxide (22-29) mmol/L Anion Gap (12-20) BUN (9-16) mg/dL Creatinine (0.5-1.4) mg/dL Estim Creat Clear Calc Estimated GFR Random Glucose (60-115) mg/dL Lactic Acid 1.5 (0.5-2.0) mmol/L Calcium (8.4-10.2) mg/dL Total Bilirubin 1.0 (0.0-1.0) mg/dL Direct Bilirubin 0.3 (0.0-0.5) mg/dL AST 9 (5-31) U/L ALT < 6 (0-31) U/L Alkaline Phosphatase 405 H (39-117) U/L Total Protein 6.9 (6.5-8.0) g/dL Albumin 3.5 (3.5-5.0) g/dL Discharge Plan Discharge Prescriptions: No Action multivitamin [Daily-Tha] Tablet 1 tab PO DAILY RF: 0 tramadol 50 mg tablet 1 tab PO TID PRN (Reason: Pain, Moderate) RF: 0 amlodipine 10 mg tablet 1 tab PO DAILY RF: 0 mirtazapine 30 mg tablet 1 tab PO BEDTIME RF: 0 calcitriol 0.5 mcg capsule 2 cap PO TID RF: 0 albuterol sulfate 90 mcg/actuation HFA aerosol inhaler 2 puff PO QID RF: 0 sertraline 50 mg tablet 1 tab PO DAILY RF: 0 loratadine 10 mg tablet 1 tab PO DAILY RF: 0 sevelamer carbonate 800 mg tablet 3 tab PO TID RF: 0 melatonin 5 mg tablet 1 tab PO BEDTIME RF: 0 ProRenal 8 mg iron-800 mcg-1,000 unit tablet 1 tab PO DAILY RF: 0 naproxen [Naprosyn] 500 mg tablet 500 mg PO BID Qty: 20 RF: 0
[2020-08-12 01:10] LABS: Alanine Aminotransferase < 6 U/L (0-31); Albumin Level 3.5 g/dL (3.5-5.0); Alkaline Phosphatase 405 U/L (39-117); Aspartate Amino Transferase 9 U/L (5-31); Bilirubin Direct 0.3 mg/dL (0.0-0.5); Total Protein 6.9 g/dL (6.5-8.0)
[2020-08-12] MEDS: vancomycin HCL 750 MG in 0.9 % Sodium Chloride 250 ML 265 MG IV ×2 (01:20→19:59)
--- NOTE | 2020-08-12 02:09 | PC.NURSE ---
pt swabbed for covid, sent to lab. refusing straight cath, still refusing to change.
--- NOTE | 2020-08-12 02:53 | PC.NURSE ---
pt continues to be uncooperative, refusing to change. refusing to give urine. antibiotics done, pending dc to floor
[2020-08-12 03:10] LABS: SARS COV2 PCR INHOUSE NEGATIVE (Negative)
--- NOTE | 2020-08-12 06:07 | CT_ITS ---
EXAMINATION: CT CHEST WITHOUT CONTRAST CLINICAL INFORMATION: Infiltrative process on chest x-ray. Assess with CT. COMPARISON: Chest radiographs 08/12/2020, 08/09/2020, CT abdomen 04/23/2020 TECHNIQUE: Multidetector volumetric CT imaging of the chest is performed without intravenous contrast. Axial MIP volume rendering provided. Sagittal and coronal reformatted images were obtained. This CT examination was performed using dose optimization techniques as appropriate, variously including the following: *Automated exposure control *Adjustment of mA and/or kV according to patient size (this includes techniques or standardized protocols for targeted exams where dose is matched to indication/reason for exam; i.e. extremities or head) *Use of iterative reconstruction technique DLP: 176 mGy-cm FINDINGS: LUNGS: There are coarse linear opacities in the bilateral apical upper lobes and anteromedial left upper lobe. There is associated traction bronchiectasis suggesting chronic scarring rather than atelectasis. In addition, there is some coarse calcification in the linear opacity on the right consistent with chronic process. There is no lobar or segmental airspace consolidation. No focal patchy subpleural groundglass opacities to suggest typical viral pneumonia. However, there is subtle background geographic groundglass attenuation upper and lower zones. This may be related to small airways disease. Infectious inflammatory process cannot be excluded. The central airways are clear. There is no endobronchial lesion. There are 2 small calcified granulomata are right upper zone. MEDIASTINUM: Suspect supraclavicular adenopathy adjacent to the thyroid and possibly around the great vessels. Assessment is difficult without intravenous contrast. There are likely thyroid nodules. There is gaseous distention of the esophagus. There may be thickening at the esophagogastric junction. Mild cardiomegaly. Mitral annulus calcification. No pericardial effusion. Thoracic aorta normal in caliber. PLEURA: Small bilateral effusions, greater on right. AXILLA: No lymphadenopathy. UPPER ABDOMEN: Splenic enlargement 14 cm sagittal dimension. Prior measurement 11.[address] 04/23/2020 prior cholecystectomy. OSSEOUS STRUCTURES: No acute bony abnormality. There is mottled attenuation vertebral bodies which may be related to renal osteodystrophy. CT/CT chest wo con IMPRESSION: 1. Coarse linear opacities bilateral apical upper lobe and anterior medial left upper lobe with some coarse calcification and traction bronchiectasis suggesting chronic scarring rather than atelectasis. 2. Widespread subtle geographic groundglass opacities more typical for small airways disease than a typical for bilateral pneumonia. Small bibasilar effusions. 3. Suspect superior mediastinal and supraclavicular adenopathy and thyroid nodules. Evaluation difficult in this exam without intravenous contrast.
--- NOTE | 2020-08-12 06:08 | P.HPIM_ITS ---
History of Present Illness Date of Service: 08/12/20 Chief Complaint: Fever this is a 55-year-old female with past medical history of end-stage renal disease on dialysis, diabetes, hypertension with a frequent presentation to the hospital for missed dialysis presents to the hospital today with complaints of fever. Patient is a very poor historian, very difficult to get any information from. Refusing to answer my questions, although awake, alert but is not cooperating. On arrival to the ED patient has a temperature of 101.8?, heart rate of 103, blood pressure 191/89 Labs are significant for WBC count of 15.3, BUN of 49, creatinine of 9.9, chest x-ray showing slight worsening of interstitial changes could represent edema versus CHF, given the presence of fever, underlying infiltrates cannot be excluded patient is refusing to give urine(not anuric) and she is also refusing to be straight cathed unable to obtain full review of system is patient is not cooperating with my exam past medical history: End-stage renal disease on dialysis Sunday, diabetes, hypertension, Past surgical history: toe amputation, shunt placement, cholecystectomy Family history: Denies Social history: Comes from home, currently an active smoker, denies any alcohol or illicit drug use Review of Systems Review of Systems: Yes Unobtainable due to mental condition and Unobtainable due to mental status PMFSH Medical History AVF (arteriovenous fistula) Blind Cataract Diabetes mellitus End stage kidney disease HTN (hypertension), malignant Toe amputee Surgical History History of cholecystectomy Hx of appendectomy Social History Household Members: Children Housing: Apartment Alcohol intake: never Smoking Status: Never smoker Tobacco Type: Cigarette Packs Per Day: 0.25 Cigarettes Per Day: 5.0 Years Smoked: >30 Advance Directives: No Advance Directives Information Provided: No service: No Current occupational status: disabled Meds Allergies Allergy/AdvReac Type Severity Reaction Status Date / Time Penicillins [PENICILLINS] Allergy Unknown UNKNOWN Verified 07/18/20 00:34 piperacillin [PIPERACILLIN] Allergy Unknown UNKNOWN Verified 07/18/20 00:34 promethazine [PROMETHAZINE] Allergy Unknown UNKNOWN Verified 07/18/20 00:34 tazobactam [TAZOBACTAM] Allergy Unknown UNKNOWN Verified 07/18/20 00:34 Home Medications Medication Instructions Recorded Confirmed Type multivitamin [Daily-Tha] 1 tab PO DAILY 07/18/20 08/12/20 History albuterol sulfate 2 puff PO QID 08/12/20 08/12/20 History amlodipine 1 tab PO DAILY 08/12/20 08/12/20 History calcitriol 2 cap PO TID 08/12/20 08/12/20 History loratadine 1 tab PO DAILY 08/12/20 08/12/20 History melatonin 1 tab PO BEDTIME 08/12/20 08/12/20 History mirtazapine 1 tab PO BEDTIME 08/12/20 08/12/20 History sertraline 1 tab PO DAILY 08/12/20 08/12/20 History sevelamer carbonate 3 tab PO TID 08/12/20 08/12/20 History tramadol 1 tab PO TID 08/12/20 08/12/20 History vit B,C-iron kkd-CQ-S6-zinc ox 1 tab PO DAILY 08/12/20 08/12/20 History [ProRenal] Physical Exam Vital Signs and Narrative: Vital Signs: Last Vital Signs Temp 99.3 F 08/12/20 04:05 Pulse 84 08/12/20 04:05 Resp 18 08/12/20 04:05 BP 145/73 H 08/12/20 02:08 Pulse Ox 100 08/12/20 04:05 Body Mass Index 23.8 Const: General: ill appearing, poor hygiene and tired appearing Nutritional Appearance: underweight Eyes: General: appearance normal, both eyes and all related structures Pupils: Equal, round and reactive pupils present Resp: Effort & Inspection: normal respiratory effort and able to speak in complete sentences Auscultation: clear to auscultation bilaterally Cardio: Rate: regular rate Rhythm: regular rhythm GI: Palpation (GI): Soft to palpation Auscultation: normal bowel sounds Skin: General skin exam: no rashes or lesions noted Neuro: Cranial nerves: Yes Equal, round and reactive pupils present Cognition (Neuro): normal cognition Extrem: Other: site of AV fistula does not appear to be infected, no erythema, no tenderness, no warmth General: Yes normal to inspection and Yes no pedal edema Results Labs Labs: Laboratory Tests 08/12/20 08/12/20 08/12/20 00:25 00:25 00:25 WBC 15.3 H RBC 3.65 L Hgb 10.6 L Hct 32.4 L MCV 88.8 MCH 29.0 MCHC 32.7 RDW 15.7 Plt Count 126 L MPV 10.3 Immature Gran % (Auto) 0.7 H Neut % (Auto) 93.2 H Lymph % (Auto) 2.8 L Bulloch % (Auto) 3.1 Eos % (Auto) 0.1 Baso % (Auto) 0.1 Lymph # (Auto) 0.4 L [place] # (Auto) 0.5 Eos # (Auto) 0.0 Baso # (Auto) 0.0 Abs Immat Gran (auto) 0.11 H Absolute Neuts (auto) 14.2 H Absolute Nucleated RBC 0.000 Nucleated RBC % (auto) 0.0 Smear Tech's Comments VERIFIED PT 16.2 H INR 1.4 H APTT 33.9 Sodium 138 Potassium 5.0 D Chloride 94 L Carbon Dioxide 25 Anion Gap 24 H BUN 49 H D Creatinine 9.92 H* Estim Creat Clear Calc 4.4 Estimated GFR 4 Random Glucose 97 Lactic Acid Calcium 6.6 L Total Bilirubin Direct Bilirubin AST ALT Alkaline Phosphatase Total Protein Albumin Coronavirus (PCR) 08/12/20 08/12/20 08/12/20 00:25 00:25 02:09 WBC RBC Hgb Hct MCV MCH MCHC RDW Plt Count MPV Immature Gran % (Auto) Neut % (Auto) Lymph % (Auto) Bulloch % (Auto) Eos % (Auto) Baso % (Auto) Lymph # (Auto) Bulloch # (Auto) Eos # (Auto) Baso # (Auto) Abs Immat Gran (auto) Absolute Neuts (auto) Absolute Nucleated RBC Nucleated RBC % (auto) Smear Tech's Comments PT INR APTT Sodium Potassium Chloride Carbon Dioxide Anion Gap BUN Creatinine Estim Creat Clear Calc Estimated GFR Random Glucose Lactic Acid 1.5 Calcium Total Bilirubin 1.0 Direct Bilirubin 0.3 AST 9 ALT < 6 Alkaline Phosphatase 405 H Total Protein 6.9 Albumin 3.5 Coronavirus (PCR) NEGATIVE ECG Interpretation: Normal sinus rhythm Nonspecific T wave abnormality Abnormal ECG When compared with ECG of 09-AUG-2020 00:52, Nonspecific T wave abnormality now evident in Anterior leads Imaging Chest x-ray: Radiologist's impression: IMPRESSION: Slight worsening of interstitial changes could represent edema/CHF. Given the presence of fever, underlying infiltrates cannot be excluded. Assessment and Plan (1) Sepsis: Qualifiers: Sepsis acute organ dysfunction status: without acute organ dysfunction Sepsis type: sepsis due to unspecified organism Qualified Code(s): A41.9 - Sepsis, unspecified organism Status: Acute (2) Pneumonia: Qualifiers: Laterality: bilateral Lung location: unspecified part of lung Pneumonia type: due to unspecified organism Qualified Code(s): J18.9 - Pneumonia, unspecified organism Status: Acute (3) HTN (hypertension), malignant: Status: Acute (4) Diabetes mellitus: Status: Acute (5) Anemia: Qualifiers: Anemia type: due to chronic kidney disease Chronic kidney disease stage: on chronic dialysis Qualified Code(s): N18.6 - End stage renal disease; D63.1 - Anemia in chronic kidney disease; Z99.2 - Dependence on renal dialysis Status: Acute (6) ESRD (end stage renal disease): Problem details: HD as ordered today 1 K bath Status: Acute this is a 55-year-old female with extensive past medical history including ESRD on dialysis who presents to the hospital who presents to the hospital found to be septic. # Sepsis - at this time unknown etiology possibly pneumonia given findings on chest x- ray - refusing to give us a urine, av fistula site clean - has leukocytosis, tachycardia, afebrile, - lactic acid normal - COVID negative Plan: - Given her frequent admissions to the hospital with started with broad- spectrum antibiotic including vancomycin and cefepime - will obtain chest CT to rule out pneumonia - pending UA # leukocytosis - secondary to acute infection - follow CBC # ESRD on dialysis - nephrology consulted for in-house dialysis # diabetes - start low-dose siding scale insulin - diabetic diet # hypertension - stable DVT prophylaxis: Heparin subcu
--- NOTE | 2020-08-12 06:09 | PC.NURSE ---
called for report to c
--- NOTE | 2020-08-12 06:30 | PC.NURSE ---
pt refusing vitals, refusing to wake up to access arm for bp keeps calling this rn names. hospitalist aware of incidents at hand. pt belongings list done.
[2020-08-12] MEDS: ondansetron HCL 4 MG/2 ML VIAL IVPUSH (07:25)
--- NOTE | 2020-08-12 07:31 | PC.NURSE ---
faxed and called again
--- NOTE | 2020-08-12 07:53 | PC.NURSE ---
CT complete, report given to [facility] [place],
--- NOTE | 2020-08-12 09:37 | MHC.CM.PN ---
Patient difficult to assess (very sleepy) and message left for Son/Ryan at [phone], requesting a return call . Patient is a HD Patient. Goal for dc is pending further assessment. IMM left at Patient's bed side and a copy placed in the chart.CM has initiated and will follow for dc planning.
[2020-08-12] MEDS: Heparin Sodium,Porcine 5,000 UNIT/ML VIAL 5000 UNIT SUBCUT (10:05)
[2020-08-12] MEDS: 0.9 % Sodium Chloride Flush 3 ML SYRINGE IVFLUSH ×2 (10:06→18:36)
[2020-08-12 10:18] LABS: Glucose, Whole Blood 103 mg/dL (60-115)
--- NOTE | 2020-08-12 11:21 | PM.PNNEP ---
Physical Exam Vital Signs: Vital Signs: Vital Signs Temp Pulse Resp BP Pulse Ox 08/12/20 11:09 97.8 F 80 18 136/80 97 08/12/20 08:00 100.6 F H 96 18 170/74 H 99 08/12/20 07:16 100 18 147/69 H 98 08/12/20 06:35 18 08/12/20 04:05 99.3 F 84 18 100 08/12/20 02:08 100.1 F 88 18 145/73 H 100 08/12/20 01:07 100.8 F H 94 18 148/73 H 99 08/12/20 00:00 101.8 F H 103 H 18 191/89 H 100 oral moist mucosa lungs decreased BSs bilaterally s1s2 abd soft +BSs ext no edema LUE AVF+thrill Body Mass Index 23.8 Assessment & Plan Assessment and plan (1) ESRD (end stage renal disease): Problem details: HD as ordered today 2 K bath TTS Status: Acute (2) Sepsis: Problem details: sec to PNA Status: Acute (3) Pneumonia: Status: Acute Assessment and Plan: plan for HD today keep with schedule TTS 2 Time Spent With Patient Time: Total time spent is greater than 50% in coordination of care (as documented) at patient's floor/unit and/or counseling patient:
--- NOTE | 2020-08-12 13:15 | MHC.CM.PN ---
ANUJA received a message from CM Rrt that Maggy, from [facility], in [place], is asking if Palliative Care at home is an option for dc, r/t Patient's history of AMA dc's and non compliance with attending HD. ANUJA has relayed this question to the MD and will continue to follow for dc planning.
[2020-08-12 13:37] LABS: Vancomycin Random 10.7 mcg/mL (15-20)
[2020-08-12] MEDS: cefEPime HCl 2 GM in 0.9 % Sodium Chloride 50 ML IV (19:01)
[2020-08-12] MEDS: Acetaminophen 325 MG TABLET 650 MG PO (21:13)
[2020-08-12 21:30] LABS: Glucose, Whole Blood 157 mg/dL (60-115)
[2020-08-13] MEDS: 0.9 % Sodium Chloride Flush 3 ML SYRINGE IVFLUSH ×3 (01:23→19:02)
[2020-08-13] MEDS: LORazepam 2 MG/ML VIAL 0.5 MG IVPUSH (01:57)
[2020-08-13 04:00] VITALS: BP 141/85; PULSE 88; RESP 20; TEMP 36.9; O2SAT 95
[2020-08-13] MEDS: hydrOXYzine HCL 50 MG TABLET PO (04:00)
[2020-08-13] MEDS: traZODone HCL 50 MG TABLET PO (04:00)
[2020-08-13] MEDS: Acetaminophen 325 MG TABLET 650 MG PO (04:24)
[2020-08-13 06:17] LABS: Basophils Percent Auto 0.2 % (0-2); Eosinophils Absolute Auto 0.1 X10*3/uL (0.0-0.4); Eosinophils Percent Auto 0.6 % (0-4); Hematocrit 33.1 % (37-47); Hemoglobin 10.5 g/dl (12.0-16.0); Imm Gran Abs Auto 0.03 X10*3/uL (0.00-0.03); Imm Gran Pct Auto 0.3 % (0.0-0.4); Lymphocytes Absolute Auto 0.5 X10*3/uL (1.2-4.9); Lymphocytes Percent Auto 5.2 % (20-40); MANUAL DIFF FLAG SCAN; Mean Corpuscular HGB Conc 31.7 g/dl (31.0-35.0); Mean Corpuscular Hemoglobin 28.8 pg (27.0-33.0); Mean Corpuscular Volume 90.7 fL (80-98); Mean Platelet Volume 11.5 fL (9.4-12.3); Monocytes Absolute Auto 0.5 X10*3/uL (0.1-1.2); Monocytes Percent Auto 4.8 % (2-11); Neutrophils Absolute Auto 8.4 X10*3/uL (2.0-8.3); Neutrophils Percent Auto 88.9 % (45-73); Platelet Count 103 X10*3/uL (160-400); Red Blood Count 3.65 X10*6/uL (4.20-5.50); Red Cell Distribution Width 15.4 % (11.0-16.0); SCAN SMEAR FLAG 1; White Blood Count 9.4 X10*3/uL (4.8-10.8)
[2020-08-13 06:31] LABS: Anion Gap 23 (12-20); Blood Urea Nitrogen 23 mg/dL (9-16); Calcium 6.6 mg/dL (8.4-10.2); Carbon Dioxide 23 mmol/L (22-29); Chloride 95 mmol/L (96-108); Creatinine Clr Calc Pharmacy 8.3; Estimated Glomerular Filt Rate 9; Glucose Random 178 mg/dL (60-115); Sodium 137 mmol/L (135-145)
[2020-08-13 07:26] VITALS: BP 164/73; PULSE 72; RESP 20; TEMP 36.3; O2SAT 98
--- NOTE | 2020-08-13 07:57 | PC.NURSE ---
P: ABOUT 01:17, PATIENT REPORTED FEELING ANXIOUS AND ASKING FOR MEDICINE TO HELP HER SLEEP WELL TO FEEL LESS ANXIOUS. P: ABOUT 03: 35, S/P ATIVAN, PATIENT IS STILL ANXIOUS AND FIDGETING AND RESTLESS, SHOUTING OUT FOR ATTENTION AND SEEMING MORE ATTENTION SEEKING. LITERALLY STATED SHE IS LONELY AND SEEKING SOMEONE TO TALK TO. PATIENT STILL ASKING FOR SOMETHING THAT WOULD HELP HER REST. I: ASSESS PATIENT, NOTIFY MD, MEDICATE ORDERED, REDIRECT REPEATEDLY E: PATIENT IS ALERT AND ORIENTED TO SELF, PLACE, SITUATION, AND NOT TO TIME. PATIENT IS VERY RESTLESS, STATING SHE IS ANXIOUS AND ASKING RN TO ASK MD FOR MEDICATIONS FOR ANXIETY. PATIENT STATES SHE IS HAVING TROUBLE SLEEPING AND ASKING FOR SOMETHING TO HELP HER SLEEP. PATIENT NEEDS ASSESSED, OFFERED BED RUIZ AND WAS BATHED. PATIENT INITIALLY DENIED PAIN OR OTHER COMPLAINTS BEYOND ANXIETY. DISCUSSED WITH MD, AND NEW ORDER FOR IV ATIVAN, WHICH WAS ADMINISTERED WITH VERY LITTLE TO NO NOTICEABLE EFFECT. PATIENT STILL RESTLESS AND ASKING FOR SOMETHING TO HELP WITH HER INSOMNIA. MD NOTIFIED, AND NEW ORDER FOR ATARAX AND TRAZODONE, BOTH ADMINISTERED, BUT PATIENT STILL QUITE RESTLESS, WAS HELPED TO RECLINER AND BACK TO BED, FREQUENTLY TRYING TO JUMP OUT OF BED WITHOUT RINGING FOR ASSISTANCE. PATEINT EDUCATED ABOUT IMPORTANCE OF CALLING FOR HELP NUMEROUS TIMES. PATIENT DID REPORT LEFT SHOULDER PAIN OF MODERATE INTENSITY AND WAS MEDICATED WITH PRN TYLENOL. PATIENT HAD ALSO BEEN HELPED TO ATTEMPT TO CALL HER SON UNSUCCESSFULLY, AND IS ASKING TO BE ALLOWED TO DISCHARGE HOME SOON POSSIBLE. DAY SHIFT FOLLOWING UP.
[2020-08-13 08:21] LABS: SLIDE REVIEW VERIFIED
--- NOTE | 2020-08-13 08:47 | PM.PNNEP ---
Subjective Subjective Interval history: no complaints had HD yesterday Physical Exam Vital Signs: Vital Signs: Vital Signs Temp Pulse Resp BP Pulse Ox 08/13/20 07:26 97.3 F 72 20 164/73 H 98 08/13/20 04:00 98.5 F 88 20 141/85 H 95 08/12/20 23:17 99.4 F 90 22 H 143/68 H 95 08/12/20 22:50 98.3 F 08/12/20 20:43 101 F H 102 H 20 148/73 H 92 08/12/20 11:23 98.9 F 89 18 168/75 H 98 08/12/20 11:09 97.8 F 80 18 136/80 97 oral moist mucosa lungs decreassed BSs both bases s1s2 abd soft +BSs ext + edema AVF +thrill Body Mass Index 23.8 Assessment & Plan Assessment and plan (1) ESRD (end stage renal disease): Problem details: HD on regular schedule TTS tolerated well yesterday Status: Acute (2) Pneumonia: Problem details: on HD dosed Antibx Status: Acute Assessment and Plan: Continue currrent rx as per medicine. pt has very poor to no support at home unable to come to outpt dialysis ?depression/chronic pain syndrome consider psych and pain mgment consults. Time Spent With Patient Time: Total time spent is greater than 50% in coordination of care (as documented) at patient's floor/unit and/or counseling patient:
[2020-08-13] MEDS: Heparin Sodium,Porcine 5,000 UNIT/ML VIAL 5000 UNIT SUBCUT ×2 (09:42→21:11)
[2020-08-13] MEDS: Insulin Lispro 100 UNIT/ML 3 ML VIAL SUBCUT (09:42)
--- NOTE | 2020-08-13 10:02 | HO.PM.IMPN ---
Subjective Subjective Date of Service: 08/13/20 Interval History: Seen in f/u for sepsis, Pneumonia. Feels better today Review of Systems Gen: no fever Resp: no cough, no fever Physical Exam Vital Signs: Vital Signs: Vital Signs Temp Pulse Resp BP Pulse Ox 08/13/20 07:26 97.3 F 72 20 164/73 H 98 08/13/20 04:00 98.5 F 88 20 141/85 H 95 08/12/20 23:17 99.4 F 90 22 H 143/68 H 95 08/12/20 22:50 98.3 F 08/12/20 20:43 101 F H 102 H 20 148/73 H 92 08/12/20 11:23 98.9 F 89 18 168/75 H 98 08/12/20 11:09 97.8 F 80 18 136/80 97 Body Mass Index 23.8 General: AO X 3, no acute distress but ill appearing Resp: CTA bilateral CVS: S1,S2,RRR GI: +BS, NT, no distention Skin: No rash Neuro: motor grossly intact Psych: appropriate affect Objective Data Current Medications Generic Name Dose Route Start Last Admin Trade Name Freq PRN Reason Stop Dose Admin Acetaminophen 650 mg 08/12/20 09:00 08/13/20 04:24 Acetaminophen 325 Mg Tablet PO 650 mg Q6H PRN Administration Pain, Mild (Pain Scale 1-3) Docusate Sodium 100 mg 08/12/20 09:00 Docusate Sodium 100 Mg Capsule PO DAILY PRN Constipation Heparin Sodium (Porcine) 5,000 unit 08/12/20 09:00 08/13/20 09:42 Heparin Sodium,Porcine 5,000 Unit/Ml Vial SUBCUT 5,000 unit Q12H [facility]IRIAM Administration Cefepime HCl 2 gm/ Sodium 50 mls @ 100 mls/hr 08/12/20 16:45 08/12/20 20:09 Chloride IV Infused [id number] [facility] Infusion Vancomycin HCl 750 mg/ Sodium 265 mls @ 265 mls/hr 08/12/20 16:45 08/12/20 21:21 Chloride IV Infused [id number] [facility] Infusion Insulin Human Lispro 0 unit 08/12/20 09:00 08/13/20 09:42 Insulin Lispro 100 Unit/Ml 3 Ml Vial SUBCUT 1 unit QIDACHS MIRIAM Administration Protocol Lidocaine HCl 0.5 ml 10/29/20 16:45 08/12/20 18:37 Lidocaine Hcl 1 % Mpf 2 Ml Ampul SUBCUT Not Given [id number] [facility] Ondansetron HCl 4 mg 08/12/20 09:00 Ondansetron Hcl 4 Mg/2 Ml Vial IVPUSH Q8H PRN Nausea and Vomiting Sodium Chloride 3 ml 08/12/20 09:00 08/13/20 09:42 0.9 % Sodium Chloride Flush 3 Ml Syringe IVFLUSH 3 ml QSHIFT [facility] Administration Labs CBC & Chem 7: 08/13/20 05:01 08/13/20 05:01 Microbiology Microbiology Results: Microbiology 08/12/20 00:29 Blood - Venous Blood Culture - Preliminary 08/12/20 00:26 Blood - Venous Blood Culture - Preliminary Assessment and Plan (1) Sepsis: Problem details: sec to PNA Status: Acute (2) Pneumonia: Problem details: on HD dosed Antibx Status: Acute (3) HTN (hypertension), malignant: Status: Acute (4) Diabetes mellitus: Status: Acute (5) ESRD (end stage renal disease): Problem details: HD on regular schedule TTS tolerated well yesterday Status: Acute (6) Anemia: Status: Acute Assessment and Plan: 55-year-old female with extensive past medical history including ESRD on dialysis who presents to the hospital who presents to the hospital found to be septic. # Sepsis--presumed secondary to pneumona, negative covid, leukocytosis resolved. -continue Ceftriaxone for one more day and then change to PO Abx # ESRD on dialysis - nephrology consulted for in-house dialysis -She has pooor support at home and therefore misses dialysis very frequently, she is not interested in hospice, maybe should be considered for snf, CM to look into this # diabetes -dose siding scale insulin - diabetic diet # hypertension - stable PT eval for placement DVT prophylaxis: Heparin subcu
[2020-08-13 12:00] VITALS: BP 153/81; PULSE 80; RESP 18; TEMP 36.5; O2SAT 97
[2020-08-13 12:11] LABS: Glucose, Whole Blood 116 mg/dL (60-115)
[2020-08-13] MEDS: ondansetron HCL 4 MG/2 ML VIAL IVPUSH (13:09)
--- NOTE | 2020-08-13 13:17 | MHC.CLN ---
CHANGED DIET TO 1200 DM 2GM NA LOW PHOS, LOW K+ PER RENAL
[2020-08-13 16:00] VITALS: BP 137/102; PULSE 89; RESP 18; TEMP 36.2; O2SAT 98
[2020-08-13 16:43] LABS: Glucose, Whole Blood 136 mg/dL (60-115)
--- NOTE | 2020-08-13 17:30 | MHC.CARE ---
CARE team presented to [facility] [place] 462[facility]2 to meet with patient for consultation. Patient was asleep with head resting on bedside table. CARE team woke patient by calling her name. Patient reports she is in extreme pain. Did not answer questions and was shutting eyes. CARE team asked if patient would like to be left to rest for now and patient nodded yes, then closed eyes. CARE team spoke with nurse before and after the attempt. Will try to meet with patient at another time. Nurse agreed that if patient is asking to speak to someone later to call CARE team to return if available.
[2020-08-13 19:33] VITALS: BP 186/86; PULSE 85; RESP 18; TEMP 36.7; O2SAT 98
[2020-08-13 21:21] LABS: Glucose, Whole Blood 136 mg/dL (60-115)
[2020-08-14] VITALS (7 sets, daily range): BP systolic 122–169; BP diastolic 63–80; PULSE 66–85; RESP 18–20; TEMP 36.4–37; O2SAT 92–99
--- NOTE | 2020-08-14 | CT_ITS ---
EXAMINATION: CT ABDOMEN AND PELVIS WITHOUT CONTRAST CLINICAL INFORMATION: Abdominal pain. COMPARISON: CT scan of the abdomen and pelvis dated 04/23/2020 and 12/03/2019. TECHNIQUE: Multidetector volumetric imaging was performed from the superior aspect of the liver through the pubic symphysis. Sagittal and coronal reformatted images were obtained on the technologist workstation. This CT examination was performed using dose optimization techniques as appropriate, variously including the following: *Automated exposure control *Adjustment of mA and/or kV according to patient size (this includes techniques or standardized protocols for targeted exams where dose is matched to indication/reason for exam; i.e. extremities or head) *Use of iterative reconstruction technique DLP: 177 mGy-cm. FINDINGS: LUNG BASES: Persistent trace right pleural effusion with mild associated right basilar subsegmental atelectasis. Dense mitral annular calcifications partially included. Retrocardiac small hiatal hernia is seen. LIVER, GALLBLADDER, AND BILIARY TREE: The liver is normal in size, shape, and attenuation. No focal hepatic lesion on noncontrast imaging. Scattered small calcified hepatic granulomas. Prominent hepatic arterial calcifications. The gallbladder is surgically absent. There is dilatation of the common bile duct, which measures approximately 1 cm in diameter proximally and 0.7 cm distally. No radiopaque obstructing stone is seen. Findings are unchanged from the prior exam and are most likely related to the patient's age and postcholecystectomy state. PANCREAS: Unremarkable on noncontrast imaging. SPLEEN, ADRENAL GLANDS: Unremarkable on noncontrast imaging. KIDNEYS AND URETERS: The kidneys are bilaterally mildly atrophic. Extensive arterial calcifications are noted throughout both kidneys. No hydronephrosis, hydroureter, or calculi seen. No definite mass on noncontrast exam. No perinephric stranding. BLADDER: Unremarkable. PELVIC VISCERA: Uterus retroverted and retroflexed with prominent peripheral calcified arteries seen. Ovaries bilaterally are unremarkable. No suspicious adnexal mass. GASTROINTESTINAL TRACT: Mild descending and sigmoid colonic diverticulosis. No acute diverticulitis. The small and large bowel are otherwise unremarkable. The appendix is unremarkable. ABDOMINAL WALL: There is chronic soft tissue density and thickening in the umbilicus region, unchanged from 04/23/2020 and 12/03/2019. LYMPH NODES, VASCULAR: No significant abdominal or pelvic adenopathy. Extensive dense atherosclerotic vascular calcifications of the aorta and other small vessels in the abdomen and pelvis. OSSEOUS STRUCTURES: Diffuse osseous sclerosis again seen, consistent with renal osteodystrophy. Erosive changes of the sacroiliac joints are similar to prior exams. Bulky heterotopic bone formation is seen along the anterior margin of the left acetabulum, progressive compared to 04/23/2020 and new from 12/03/2019, suggesting myositis ossificans. CT/CT abdomen pelvis wo con IMPRESSION: 1. No acute intra-abdominal or pelvic findings seen. Sigmoid and descending colonic diverticulosis is noted without evidence of acute diverticulitis. 2. 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 3. Other findings are similar to previous exam, including trace right pleural effusion and associated right basilar atelectasis, small retrocardiac hernia, extensive atherosclerotic vascular disease, extrahepatic biliary dilatation likely due to patient's age and postcholecystectomy state, findings of renal osteodystrophy.
[2020-08-14] MEDS: 0.9 % Sodium Chloride Flush 3 ML SYRINGE IVFLUSH ×2 (00:27→15:57)
[2020-08-14 07:23] LABS: Glucose, Whole Blood 88 mg/dL (60-115)
[2020-08-14] MEDS: ondansetron HCL 4 MG/2 ML VIAL IVPUSH (10:32)
--- NOTE | 2020-08-14 10:58 | HO.PM.IMPN ---
Subjective Subjective Date of Service: 08/14/20 Interval History: Seen in f/u for sepsis, Pneumonia. c/o abd pain during dialysis and given morpnine, CT no acute finding. Physical Exam Vital Signs: Vital Signs: Vital Signs Temp Pulse Resp BP Pulse Ox 08/14/20 04:00 97.5 F 85 20 169/63 H 94 08/14/20 00:00 97.7 F 66 18 159/76 H 99 08/13/20 19:33 98.1 F 85 18 186/86 H 98 08/13/20 16:00 97.2 F 89 18 137/102 H 98 08/13/20 12:00 97.7 F 80 18 153/81 H 97 Body Mass Index 23.8 General: AO X 3, no acute distress but ill appearing Resp: CTA bilateral CVS: S1,S2,RRR GI: +BS, NT, no distention--essentially bening exam Skin: No rash Neuro: motor grossly intact Psych: appropriate affect Objective Data Current Medications Generic Name Dose Route Start Last Admin Trade Name Toneq PRN Reason Stop Dose Admin Acetaminophen 650 mg 08/12/20 09:00 08/13/20 04:24 Acetaminophen 325 Mg Tablet PO 650 mg Q6H PRN Administration Pain, Mild (Pain Scale 1-3) Docusate Sodium 100 mg 08/12/20 09:00 Docusate Sodium 100 Mg Capsule PO DAILY PRN Constipation Heparin Sodium (Porcine) 5,000 unit 08/12/20 09:00 08/14/20 08:26 Heparin Sodium,Porcine 5,000 Unit/Ml Vial SUBCUT Not Given Q12H [facility] Cefepime HCl 2 gm/ Sodium 50 mls @ 100 mls/hr 08/12/20 16:45 08/12/20 20:09 Chloride IV Infused [id number] [facility] Infusion Vancomycin HCl 750 mg/ Sodium 265 mls @ 265 mls/hr 08/12/20 16:45 08/12/20 21:21 Chloride IV Infused [email or web address] [facility] Infusion Insulin Human Lispro 0 unit 08/12/20 09:00 08/14/20 08:24 Insulin Lispro 100 Unit/Ml 3 Ml Vial SUBCUT Not Given QIDACHS [facility] Protocol Lidocaine HCl 0.5 ml 08/12/20 16:45 08/12/20 18:37 Lidocaine Hcl 1 % Mpf 2 Ml Ampul SUBCUT Not Given [facility] [id number] [facility] Ondansetron HCl 4 mg 08/12/20 09:00 08/14/20 10:32 Ondansetron Hcl 4 Mg/2 Ml Vial IVPUSH 4 mg Q8H PRN Administration Nausea and Vomiting Sodium Chloride 3 ml 08/12/20 09:00 08/14/20 08:24 0.9 % Sodium Chloride Flush 3 Ml Syringe IVFLUSH Not Given QSHIFT [facility] Labs CBC & Chem 7: 08/13/20 05:01 08/13/20 05:01 Microbiology Microbiology Results: Microbiology 08/12/20 00:29 Blood - Venous Blood Culture - Final Methicillin Res Staph Aureus 08/12/20 00:26 Blood - Venous Blood Culture - Final Methicillin Res Staph Aureus Assessment and Plan (1) Sepsis: Problem details: sec to PNA Status: Acute (2) Pneumonia: Problem details: on HD dosed Antibx Status: Acute (3) HTN (hypertension), malignant: Status: Acute (4) Diabetes mellitus: Status: Acute (5) ESRD (end stage renal disease): Problem details: HD on regular schedule TTS tolerated well yesterday Status: Acute (6) Anemia: Status: Acute Assessment and Plan: 55-year-old female with extensive past medical history including ESRD on dialysis who presents to the hospital who presents to the hospital found to be septic. # Sepsis--presumed secondary to pneumona, negative covid, leukocytosis resolved. -continue Ceftriaxone for one more day and then change to PO Abx # ESRD on dialysis - nephrology consulted for in-house dialysis -She has pooor support at home and therefore misses dialysis very frequently, she is not interested in hospice, maybe should be considered for snf, CM to look into this # diabetes -dose siding scale insulin - diabetic diet # hypertension - stable PT eval for placement #Abdominal pain--bening exam, and CT unremarkable. conservative management DVT prophylaxis: Heparin subcu
[2020-08-14] MEDS: Morphine Sulfate 2 MG/ML CARTRIDGE IVPUSH (11:33)
[2020-08-14 12:13] LABS: Glucose, Whole Blood 93 mg/dL (60-115)
[2020-08-14 14:41] LABS: Vancomycin Random 13.2 mcg/mL (15-20)
[2020-08-14] MEDS: vancomycin HCL 500 MG in 0.9 % Sodium Chloride 100 ML 110 MG IV (15:55)
[2020-08-14 16:34] LABS: Glucose, Whole Blood 108 mg/dL (60-115)
[2020-08-14] MEDS: cefEPime HCl 2 GM in 0.9 % Sodium Chloride 50 ML IV (16:54)
--- NOTE | 2020-08-14 17:39 | MHC.CARE ---
CARE team coordinated with patient's nurse on an earlier shift. Patient is not well enough to meet and is receiving treatments for medical needs. CARE team will continue to assess readiness to meet via chart review and communications with [facility] staff, with a plan to check in when patient is more well.
[2020-08-14] MEDS: Heparin Sodium,Porcine 5,000 UNIT/ML VIAL 5000 UNIT SUBCUT (20:58)
[2020-08-14 21:15] LABS: Glucose, Whole Blood 78 mg/dL (60-115)
[2020-08-15 03:42] VITALS: BP 159/76; PULSE 68; RESP 18; TEMP 36.6; O2SAT 98
[2020-08-15] MEDS: 0.9 % Sodium Chloride Flush 3 ML SYRINGE IVFLUSH ×4 (04:34→23:02)
[2020-08-15 07:48] LABS: Glucose, Whole Blood 65 mg/dL (60-115)
[2020-08-15 08:00] VITALS: BP 153/75; PULSE 85; RESP 18; TEMP 36.2; O2SAT 97
[2020-08-15] MEDS: Morphine Sulfate 2 MG/ML CARTRIDGE IVPUSH (09:36)
[2020-08-15] MEDS: Heparin Sodium,Porcine 5,000 UNIT/ML VIAL 5000 UNIT SUBCUT (09:36)
[2020-08-15 11:34] LABS: Glucose, Whole Blood 89 mg/dL (60-115)
--- NOTE | 2020-08-15 12:16 | P.PNIM_ITS ---
Subjective Subjective Date of Service: 08/15/20 Interval History: no complaints Cardiovascular Cardiovascular: Reports no additional cardiovascular complaints Respiratory Respiratory: Reports no additional respiratory complaints Physical Exam Vital Signs: Vital Signs: Vital Signs Temp Pulse Resp BP Pulse Ox 08/15/20 08:00 97.2 F 85 18 153/75 H 97 08/15/20 03:42 98 F 68 18 159/76 H 98 08/14/20 23:24 98 F 82 18 145/73 H 92 08/14/20 20:00 98 F 83 18 163/76 H 95 08/14/20 16:00 97.6 F 80 18 122/80 96 Body Mass Index 23.8 General: AO X 3, no acute distress Resp: CTA bilateral CVS: S1,S2,RRR GI: soft, non tender, non distended Neuro: motor grossly intact Psych: appropriate affect Objective Data Current Medications Generic Name Dose Route Start Last Admin Trade Name Freq PRN Reason Stop Dose Admin Acetaminophen 650 mg 08/12/20 09:00 08/13/20 04:24 Acetaminophen 325 Mg Tablet PO 650 mg Q6H PRN Administration Pain, Mild (Pain Scale 1-3) Docusate Sodium 100 mg 08/12/20 09:00 Docusate Sodium 100 Mg Capsule PO DAILY PRN Constipation Heparin Sodium (Porcine) 5,000 unit 08/12/20 09:00 08/15/20 09:36 Heparin Sodium,Porcine 5,000 Unit/Ml Vial SUBCUT 5,000 unit Q12H [facility]IRIAM Administration Cefepime HCl 2 gm/ Sodium 50 mls @ 100 mls/hr 08/12/20 16:45 08/14/20 17:28 Chloride IV Infused [id number] [facility] Infusion Vancomycin HCl 750 mg/ Sodium 265 mls @ 265 mls/hr 08/12/20 16:45 08/12/20 21:21 Chloride IV Infused [email or web address] [facility] Infusion Insulin Human Lispro 0 unit 08/12/20 09:00 08/15/20 09:36 Insulin Lispro 100 Unit/Ml 3 Ml Vial SUBCUT Not Given QIDACHS [facility] Protocol Lidocaine HCl 0.5 ml 08/12/20 16:45 08/14/20 16:01 Lidocaine Hcl 1 % Mpf 2 Ml Ampul SUBCUT Not Given [id number] [facility] Morphine Sulfate 2 mg 08/14/20 11:21 08/15/20 09:36 Morphine Sulfate 2 Mg/Ml Cartridge IVPUSH 2 mg Q4H PRN Administration Pain, Severe (Pain Scale 7-10) Ondansetron HCl 4 mg 08/12/20 09:00 08/14/20 10:32 Ondansetron Hcl 4 Mg/2 Ml Vial IVPUSH 4 mg Q8H PRN Administration Nausea and Vomiting Sodium Chloride 3 ml 08/12/20 09:00 08/15/20 09:36 0.9 % Sodium Chloride Flush 3 Ml Syringe IVFLUSH 3 ml QSHIFT MIRIAM Administration Labs CBC & Chem 7: 08/13/20 05:01 08/13/20 05:01 Microbiology Microbiology Results: Microbiology 08/12/20 00:29 Blood - Venous Blood Culture - Final Methicillin Res Staph Aureus 08/12/20 00:26 Blood - Venous Blood Culture - Final Methicillin Res Staph Aureus Assessment and Plan (1) Sepsis: Problem details: sec to PNA Status: Acute (2) Pneumonia: Problem details: on HD dosed Antibx Status: Acute (3) HTN (hypertension), malignant: Status: Acute (4) Diabetes mellitus: Status: Acute (5) ESRD (end stage renal disease): Problem details: HD on regular schedule TTS tolerated well yesterday Status: Acute (6) Anemia: Status: Acute Assessment and Plan: 55-year-old female with extensive past medical history including ESRD on dialysis presented with fever sepsis poa due to MRSA bacteremia, likely related to HD check echo, continue vanc, dc cefepime, follow up cultures, ID eval ESRD on dialysis HD -She has pooor support at home and therefore misses dialysis very frequently, she is not interested in hospice, maybe should be considered for snf, CM to look into this diabetes insulin
--- NOTE | 2020-08-15 16:09 | MHC.CARE ---
CARE Team attempted to meet with Pt. Pt reported wanting to rest. CARE Team to follow up with Pt tomorrow.
[2020-08-15 20:00] VITALS: BP 142/70; PULSE 82; RESP 20; TEMP 36.8; O2SAT 98
[2020-08-15 21:32] LABS: Glucose, Whole Blood 81 mg/dL (60-115)
[2020-08-16] VITALS: BP 142/69; PULSE 78; RESP 18; TEMP 36.9; O2SAT 94
[2020-08-16 04:00] VITALS: BP 136/74; PULSE 80; RESP 20; TEMP 36.9; O2SAT 95
[2020-08-16 05:00] LABS: MANUAL DIFF FLAG NO
[2020-08-16 05:28] LABS: Basophils Percent Auto 0.2 % (0-2); Eosinophils Absolute Auto 0.3 X10*3/uL (0.0-0.4); Eosinophils Percent Auto 2.4 % (0-4); Hematocrit 33.7 % (37-47); Hemoglobin 10.7 g/dl (12.0-16.0); Imm Gran Abs Auto 0.06 X10*3/uL (0.00-0.03); Imm Gran Pct Auto 0.6 % (0.0-0.4); Lymphocytes Absolute Auto 1.2 X10*3/uL (1.2-4.9); Lymphocytes Percent Auto 11.1 % (20-40); Mean Corpuscular HGB Conc 31.8 g/dl (31.0-35.0); Mean Corpuscular Hemoglobin 28.4 pg (27.0-33.0); Mean Corpuscular Volume 89.4 fL (80-98); Mean Platelet Volume 10.7 fL (9.4-12.3); Neutrophils Absolute Auto 8.1 X10*3/uL (2.0-8.3); Neutrophils Percent Auto 76.7 % (45-73); Platelet Count 125 X10*3/uL (160-400); Red Blood Count 3.77 X10*6/uL (4.20-5.50); White Blood Count 10.5 X10*3/uL (4.8-10.8)
[2020-08-16 05:47] LABS: Anion Gap 20 (12-20); Blood Urea Nitrogen 38 mg/dL (9-16); Calcium 6.6 mg/dL (8.4-10.2); Carbon Dioxide 26 mmol/L (22-29); Chloride 96 mmol/L (96-108); Glucose Fasting 95 mg/dL (60-99); Potassium 3.9 mmol/l (3.3-5.1); Sodium 138 mmol/L (135-145)
[2020-08-16 05:56] LABS: Creatinine Clr Calc Pharmacy 8.2; Estimated Glomerular Filt Rate 8
[2020-08-16 07:50] LABS: Glucose, Whole Blood 85 mg/dL (60-115)
[2020-08-16 07:51] VITALS: BP 137/67; PULSE 85; RESP 16; TEMP 36.3; O2SAT 94
[2020-08-16 07:53] LABS: Glucose, Whole Blood 80 mg/dL (60-115)
--- NOTE | 2020-08-16 09:42 | HO.PM.IMPN ---
Subjective Subjective Date of Service: 08/16/20 Interval History: wants to go home Cardiovascular Cardiovascular: Reports no additional cardiovascular complaints Respiratory Respiratory: Reports no additional respiratory complaints Physical Exam Vital Signs: Vital Signs: Vital Signs Temp Pulse Resp BP Pulse Ox 08/16/20 07:51 97.3 F 85 16 137/67 94 08/16/20 04:00 98.4 F 80 20 136/74 95 08/16/20 00:00 98.4 F 78 18 142/69 H 94 08/15/20 20:00 98.2 F 82 20 142/70 H 98 Body Mass Index 23.8 General: AO X 3, no acute distress Resp: CTA bilateral CVS: S1,S2,RRR GI: soft, non tender, non distended Neuro: motor grossly intact Psych: appropriate affect Objective Data Current Medications Generic Name Dose Route Start Last Admin Trade Name Freq PRN Reason Stop Dose Admin Acetaminophen 650 mg 08/12/20 09:00 08/13/20 04:24 Acetaminophen 325 Mg Tablet PO 650 mg Q6H PRN Administration Pain, Mild (Pain Scale 1-3) Docusate Sodium 100 mg 08/12/20 09:00 Docusate Sodium 100 Mg Capsule PO DAILY PRN Constipation Heparin Sodium (Porcine) 5,000 unit 08/12/20 09:00 08/15/20 23:01 Heparin Sodium,Porcine 5,000 Unit/Ml Vial SUBCUT Not Given Q12H [facility] Vancomycin HCl 750 mg/ Sodium 265 mls @ 265 mls/hr 08/12/20 16:45 08/12/20 21:21 Chloride IV Infused [id number] [facility] Infusion Insulin Human Lispro 0 unit 08/12/20 09:00 08/15/20 22:57 Insulin Lispro 100 Unit/Ml 3 Ml Vial SUBCUT Not Given QIDACHS [facility] Protocol Lidocaine HCl 0.5 ml 08/12/20 16:45 08/14/20 16:01 Lidocaine Hcl 1 % Mpf 2 Ml Ampul SUBCUT Not Given [email or web address] [facility] Morphine Sulfate 2 mg 08/14/20 11:21 08/15/20 09:36 Morphine Sulfate 2 Mg/Ml Cartridge IVPUSH 2 mg Q4H PRN Administration Pain, Severe (Pain Scale 7-10) Ondansetron HCl 4 mg 08/12/20 09:00 08/14/20 10:32 Ondansetron Hcl 4 Mg/2 Ml Vial IVPUSH 4 mg Q8H PRN Administration Nausea and Vomiting Sodium Chloride 3 ml 08/12/20 09:00 08/15/20 23:02 0.9 % Sodium Chloride Flush 3 Ml Syringe IVFLUSH 3 ml QSHIFT MIRIAM Administration Labs CBC & Chem 7: 08/16/20 04:50 08/16/20 04:50 Microbiology Microbiology Results: Microbiology 08/12/20 00:29 Blood - Venous Blood Culture - Final Methicillin Res Staph Aureus 08/12/20 00:26 Blood - Venous Blood Culture - Final Methicillin Res Staph Aureus Assessment and Plan (1) Sepsis: Problem details: sec to PNA Status: Acute (2) Pneumonia: Problem details: on HD dosed Antibx Status: Acute (3) HTN (hypertension), malignant: Status: Acute (4) Diabetes mellitus: Status: Acute (5) ESRD (end stage renal disease): Problem details: HD on regular schedule TTS tolerated well yesterday Status: Acute (6) Anemia: Status: Acute Assessment and Plan: 55-year-old female with extensive past medical history including ESRD on dialysis presented with fever sepsis poa due to MRSA bacteremia, likely related to HD f/u echo, continue vanc, dced cefepime, follow up repeat cultures from 08/15, ID eval ESRD on dialysis HD -She has poor support at home and therefore misses dialysis very frequently, she is not interested in hospice, maybe should be considered for snf, CM to look into this diabetes insulin
--- NOTE | 2020-08-16 10:36 | MHC.CARE ---
CARE team met w pt again today based on a series of attempts by report. Pt was seated upright in bed staring off. Pt was non verbal. She declined to discuss nature of consult order (depression) and when t/w asked if she was feeling sad , down , or depressed pt shook her head to suggest no . Pt would not speak at all during todays visit. Pt presents as disheveled and it is not clear she is able to clearly understand. T/w spoke w CM about how pt would not engage and that she seems to require either more help at home or perhaps assess for Rehab as she has frequented the ED and appears to be in poor condition along with missing appt at dialysis. T/w shared these impressions with provider and subsequent referrals can be made as needed.
[2020-08-16] MEDS: Heparin Sodium,Porcine 5,000 UNIT/ML VIAL 5000 UNIT SUBCUT (10:48)
--- NOTE | 2020-08-16 11:00 | CA_ITS ---
Transthoracic Echocardiogram Patient (Last, First, Middle): Goi Goyal, Gender: Female Date of : 1965 Age: 55 Procedure Date: 08/16/2020 Procedure Type: Transthoracic Echocardiogram Location: [facility] [place] Height: 144. cm Weight: 50. kg BSA: 1.39 m2 Heart Rate: bpm BP: 136 / 74 mmHg Cloth Weigher: Referring MD: Rafael Desouza MD Symptoms: mrsa bacteremia Study Quality: Fair ECG Rhythm: Sinus Conclusions: - The left ventricular systolic function is low normal. The visually estimated ejection fraction is between 50-55%. - E/E prime ratio is between 8 and 15 consistent with indeterminate filling pressures. - Normal right ventricular cavity size and systolic function. - The left atrium is severely dilated. - There is severe mitral annular calcification. There is trace mitral valve regurgitation. There is no mitral valve stenosis.Mobile calcified mass attached to the anterior mitral valve leaflet. Differentials include mobile mitral annular calcification vs healed vegetation. Findings Left Ventricle Normal left ventricular cavity size. There is normal left ventricular wall thickness. The left ventricular systolic function is low normal. The visually estimated ejection fraction is between 50-55%. There is evidence of regional wall motion abnormalities. Abnormal diastolic function is noted. Spectral Doppler is indicative of a pseudonormal filling pattern. E/E prime ratio is between 8 and 15 consistent with indeterminate filling pressures. Right Ventricle Normal right ventricular cavity size and systolic function. Atria The left atrium is severely dilated. Aortic Valve There is a normal trileaflet aortic valve. There is mild calcification of the aortic valve. There is mild thickening of the aortic valve. There is no aortic valve stenosis. There is no aortic valve regurgitation. Mitral Valve There is severe mitral annular calcification. There is trace mitral valve regurgitation. There is no mitral valve stenosis.Mobile calcified mass attached to the anterior mitral valve leaflet. Differentials include mobile mitral annular calcification vs healed vegetation. Pulmonic Valve The pulmonic valve is likely normal. There is trace pulmonic valve regurgitation. Tricuspid Valve Likely normal tricuspid valve structure and function. There is mild tricuspid valve regurgitation. Normal right atrial pressure. There is no evidence of pulmonary hypertension. Great Vessels All visible segments of the aorta are normal in size. The visualized portions of the pulmonary artery and branches are normal. Venous The inferior vena cava is normal in size and collapses greater than 50% with inspiration. Pericardium/Pleural There is no evidence of pericardial effusion. Prior Study Comparison No prior study available for comparison. Recommendations, Care & Conclusions Consider a MARY if clinically appropriate. Measurements 2D Linear Measurements IVSd: 0.70 0.6-0.9/0.6-1.0 cm LVIDd: 4.84 3.9-5.3/4.2-5.9 cm LVIDd Index: 3.48 2.4-3.2/2.2-3.1 cm/m2 LVIDs: 3.23 2.0-3.6 cm LVPWd: 0.79 0.7-1.1 cm Ao Root: 2.80 2.1-3.5 cm LA Diam: 3.90 2.7-3.8/3.0-4.0 cm LAIDs Index: 2.81 1.5-2.3 cm/m2 LV Mass: 145.87 67-162/88-224 g LV Mass Index: 104.94 43-95/49-115 g/m2 LVOT Diam: 2.00 3.0+(-)1.3 cm Mitral Valve MV Pk E: 1.00 MV PK A: 1.00 MV Decel Time: 175.00 E/A: 1.00 E'Lateral: 7.72 E'Medial: 5.33 E/E' Med: 18.80 E/E' Lat: 13.00 PHT: 51.00 MVA PHT: 4.31 Decel [place]: 5.73 Aortic Valve AoV Pk Nixon: 1.46 AoV Mn Nixon: 0.94 AoV VTI: 0.33 AoV Pk Grad: 9.00 Aov Mn Grad: 4.00 TEJAL Cont.VTI: 1.92 LVOT LVOT Pk Nixon: 0.94 LVOT Mn Nixon: 0.56 LVOT VTI: 0.20 LVOT Pk Grad: 4.00 LVOT Mn Grad: 2.00 LVOT Diam: 2.00 LVOT Area: 3.14 Diastolic Function MV Pk E: 1.00 MV Pk A: 1.00 E/A: 1.00 E'Medial: 5.33 E/E' Med: 18.80 E' Laterial: 7.72 E/E' Lat: 13.00 Tricuspid Valve TR Pk Nixon: 2.42 TR Pk Grad: 23.00 Great Vessels Aorta Ao Root-2D: 2.80 2.0-3.7 cm Ao Asc: 2.60 2.1-3.4 cm Pulmonary Valve PV Pk Nixon: 0.83 Peak PV Grad: 3.00 Updated in Other Vendor System with Status of Final Mynor Quiroz MD electronically signed on 08/16/2020 3:43:56 PM with status of Final
[2020-08-16 11:12] VITALS: BP 149/71; PULSE 79; RESP 18; TEMP 36.3; O2SAT 98
[2020-08-16 11:19] LABS: Glucose, Whole Blood 108 mg/dL (60-115)
--- NOTE | 2020-08-16 11:47 | MHC.CM.PN ---
Per ROUNDS discussion, MD is considering having a Psych eval to determine if Patient has capacity to make informed medical decisions.Patient wants to return home.CM spoke with Carmen from [facility] and Patient has not been responsive/non compliant to the [facility] approach(does not return calls). Carmen has given her OK to refer Patient to the [facility].CM will continue to follow for dc planning.
[2020-08-16 15:39] VITALS: BP 148/68; PULSE 82; RESP 18; TEMP 37; O2SAT 99
[2020-08-16 16:20] LABS: Glucose, Whole Blood 116 mg/dL (60-115)
--- NOTE | 2020-08-16 16:31 | W.PM.IDCN ---
History of Present Illness Data of Consult Service Date: 08/16/20 Requesting physician: Rafael Desouza Primary Care Provider: Unknown Physician HPI Reason for consult: bacteremia She presents to hospital with chills and fever for a day She has MRSA blood Review of Systems Review of Systems: Yes all other systems are reviewed and are negative [facility] Past Medical History Medical History AVF (arteriovenous fistula) Blind Cataract Diabetes mellitus End stage kidney disease HTN (hypertension), malignant Toe amputee Surgical History Surgical History History of cholecystectomy Hx of appendectomy Social History Social History Household Members: Children Housing: Unknown / Unable to assess Do you presently have visiting nurse or other home services: No (unknown) Alcohol intake: unknown Smoking Status: Current every day smoker Tobacco Type: Cigarette Packs Per Day: 0.5 Cigarettes Per Day: 10.0 Years Smoked: >30 Smoked in Last 30 Days: Yes Second Hand Smoke Exposure: No Use of substances other than those prescribed or required for medical reasons: No Currently Displaying Signs/Symptoms of Drug Intoxication Withdrawal: No Any prior treatment program specific to substance use: No Advance Directives: No Advance Directives Information Provided: No Do you have thoughts of harming others: None Do you have a plan to hurt others: No Plan Recently lost weight without trying: Unsure service: No Current occupational status: disabled Meds Allergies Allergy/AdvReac Type Severity Reaction Status Date / Time Penicillins [PENICILLINS] Allergy Unknown UNKNOWN Verified 07/18/20 00:34 piperacillin [PIPERACILLIN] Allergy Unknown UNKNOWN Verified 07/18/20 00:34 promethazine [PROMETHAZINE] Allergy Unknown UNKNOWN Verified 07/18/20 00:34 tazobactam [TAZOBACTAM] Allergy Unknown UNKNOWN Verified 07/18/20 00:34 Home Medications Medication Instructions Recorded Confirmed Type multivitamin [Daily-Tha] 1 tab PO DAILY 07/18/20 08/12/20 History albuterol sulfate 2 puff PO QID 08/12/20 08/12/20 History amlodipine 1 tab PO DAILY 08/12/20 08/12/20 History calcitriol 2 cap PO TID 08/12/20 08/12/20 History loratadine 1 tab PO DAILY 08/12/20 08/12/20 History melatonin 1 tab PO BEDTIME 08/12/20 08/12/20 History mirtazapine 1 tab PO BEDTIME 08/12/20 08/12/20 History sertraline 1 tab PO DAILY 08/12/20 08/12/20 History sevelamer carbonate 3 tab PO TID 08/12/20 08/12/20 History tramadol 1 tab PO TID 08/12/20 08/12/20 History vit B,C-iron qgl-VU-Y2-zinc ox 1 tab PO DAILY 08/12/20 08/12/20 History [ProRenal] Physical Exam Vital Signs: Vital Signs: Vital Signs Temp Pulse Resp BP Pulse Ox 08/16/20 15:39 98.6 F 82 18 148/68 H 99 08/16/20 11:12 97.4 F 79 18 149/71 H 98 08/16/20 07:51 97.3 F 85 16 137/67 94 08/16/20 04:00 98.4 F 80 20 136/74 95 08/16/20 00:00 98.4 F 78 18 142/69 H 94 08/15/20 20:00 98.2 F 82 20 142/70 H 98 Body Mass Index 23.8 Const: General: cooperative HENMT: Head: Yes normal to inspection Mouth: oropharynx normal Throat: Yes posterior oropharynx normal Resp: Effort & Inspection: normal respiratory effort Cardio: Rate: regular rate Rhythm: regular rhythm GI: Inspection: Yes normal to inspection : General: Yes no CVA tenderness Back/Spine/Pelvis: Back: no CVA tenderness Assessment and Plan (1) Sepsis: Qualifiers: Sepsis acute organ dysfunction status: without acute organ dysfunction Sepsis type: sepsis due to unspecified organism Qualified Code(s): A41.9 - Sepsis, unspecified organism Problem details: sec to PNA Status: Acute Vancomycin with MRSA 4 weeks If doesnt clear would need catheter removal Check echo (2) Pneumonia: Qualifiers: Laterality: bilateral Lung location: unspecified part of lung Pneumonia type: due to unspecified organism Qualified Code(s): J18.9 - Pneumonia, unspecified organism Problem details: on HD dosed Antibx Status: Acute Results Labs CBC & Chem 7: 08/16/20 04:50 11/02/20 04:50 Labs: Short CBC 08/16/20 Range/Units 04:50 WBC 10.5 (4.8-10.8) X10*3/uL Hgb 10.7 L (12.0-16.0) g/dl Hct 33.7 L (37-47) % Plt Count 125 L (160-400) X10*3/uL BMP 08/16/20 04:50 Sodium 138 Potassium 3.9 Chloride 96 Carbon Dioxide 26 BUN 38 H D Creatinine 5.36 H* Calcium 6.6 L Microbiology Microbiology Results: Microbiology 08/15/20 09:45 Blood - Venous Blood Culture - Preliminary No growth after 24 hours. 08/15/20 09:45 Blood - Venous Blood Culture - Preliminary No growth after 24 hours. 08/12/20 00:29 Blood - Venous Blood Culture - Final Methicillin Res Staph Aureus 08/12/20 00:26 Blood - Venous Blood Culture - Final Methicillin Res Staph Aureus
--- NOTE | 2020-08-16 16:39 | P.CNPS_ITS ---
History of Present Illness Chief Complaint: Fever Reason for Consult: Capacity evaluation related to discharge plan Requesting physician: Rafael Desouza Discussed with referring provider: Yes Sources of Information: patient interviewed and chart reviewed HPI Narrative: Patient is a 55 year old Khmer speaking female with ESRD on HD currently medically admitted for sepsis. Consult requested as patient wishing to be discharged home, though there was concern regarding lack of support at home and number of missed HD appts. Pt seen in room 462. Awake, alert guarded and not wishing to engage in interview. This fiction writer explained reason for interview and importance in participating, patient reluctantly agreed. Pt verbalized that she wished to go home. When asked abou tHD she stated that she goes everyday, when asked risks of missing dialysis, she stated, I don't know and I don't care, I feel bad . When asked about supports at home she said her some helps sometimes, but then stated I don;t need any help. She stated that she no longer wanted dialysis, and when questioned about what woudl happen if she did not have dialysis she reported I don't know . When asked if she wanted to live she said yes. This fiction writer informed patient that without dialysis she would likely not live very long. Pt did verbalize that she did not want to . Later in conversation again stated that she did not want dilaysis, risks reiterated--unclear if patient truly understands what is being presented to her Past Psychiatric History: not reviewed Medical Evaluation Reviewed: Yes numerous comorbid conditions poor adherence to HD treatments Personal & Social History: Lives with son lack of formal and informal supports Review of Systems Psychiatric: Reports depression, Reports irritability and Denies suicidal ideation [facility] Medical History AVF (arteriovenous fistula) Blind Cataract Diabetes mellitus End stage kidney disease HTN (hypertension), malignant Toe amputee Surgical History History of cholecystectomy Hx of appendectomy Diagnostics Vital Signs (24Hr): Vital Signs - 24 hr 08/15/20 20:00 08/16/20 00:00 08/16/20 04:00 Temperature 98.2 F 98.4 F 98.4 F Pulse Rate 82 78 80 Respiratory Rate 20 18 20 Blood Pressure 142/70 H 142/69 H 136/74 Pulse Oximetry 98 94 95 08/16/20 07:51 08/16/20 11:12 08/16/20 15:39 Temperature 97.3 F 97.4 F 98.6 F Pulse Rate 85 79 82 Respiratory Rate 16 18 18 Blood Pressure 137/67 149/71 H 148/68 H Pulse Oximetry 94 98 99 Body Mass Index 23.8 Labs Results: 08/16/20 04:50 08/16/20 04:50 Labs: Laboratory Results - last 48 hr 08/14/20 08/15/20 08/15/20 21:03 07:41 11:26 WBC RBC Hgb Hct MCV MCH MCHC RDW Plt Count MPV Immature Gran % (Auto) Neut % (Auto) Lymph % (Auto) [place] % (Auto) Eos % (Auto) Baso % (Auto) Lymph # (Auto) [place] # (Auto) Eos # (Auto) Baso # (Auto) Abs Immat Gran (auto) Absolute Neuts (auto) Absolute Nucleated RBC Nucleated RBC % (auto) Sodium Potassium Chloride Carbon Dioxide Anion Gap BUN Creatinine Estim Creat Clear Calc Estimated GFR POC Glucose 78 65 89 Fasting Glucose Calcium 08/15/20 08/16/20 08/16/20 21:21 04:50 04:50 WBC 10.5 RBC 3.77 L Hgb 10.7 L Hct 33.7 L MCV 89.4 MCH 28.4 MCHC 31.8 RDW 15.0 Plt Count 125 L MPV 10.7 Immature Gran % (Auto) 0.6 H Neut % (Auto) 76.7 H Lymph % (Auto) 11.1 L [place] % (Auto) 9.0 Eos % (Auto) 2.4 Baso % (Auto) 0.2 Lymph # (Auto) 1.2 [place] # (Auto) 1.0 Eos # (Auto) 0.3 Baso # (Auto) 0.0 Abs Immat Gran (auto) 0.06 H Absolute Neuts (auto) 8.1 Absolute Nucleated RBC 0.000 Nucleated RBC % (auto) 0.0 Sodium 138 Potassium 3.9 Chloride 96 Carbon Dioxide 26 Anion Gap 20 BUN 38 H D Creatinine 5.36 H* Estim Creat Clear Calc 8.2 Estimated GFR 8 POC Glucose 81 Fasting Glucose 95 Calcium 6.6 L 08/16/20 08/16/20 08/16/20 07:47 07:50 11:15 WBC RBC Hgb Hct MCV MCH MCHC RDW Plt Count MPV Immature Gran % (Auto) Neut % (Auto) Lymph % (Auto) [place] % (Auto) Eos % (Auto) Baso % (Auto) Lymph # (Auto) [place] # (Auto) Eos # (Auto) Baso # (Auto) Abs Immat Gran (auto) Absolute Neuts (auto) Absolute Nucleated RBC Nucleated RBC % (auto) Sodium Potassium Chloride Carbon Dioxide Anion Gap BUN Creatinine Estim Creat Clear Calc Estimated GFR POC Glucose 85 80 108 Fasting Glucose Calcium 08/16/20 16:16 WBC RBC Hgb Hct MCV MCH MCHC RDW Plt Count MPV Immature Gran % (Auto) Neut % (Auto) Lymph % (Auto) [place] % (Auto) Eos % (Auto) Baso % (Auto) Lymph # (Auto) [place] # (Auto) Eos # (Auto) Baso # (Auto) Abs Immat Gran (auto) Absolute Neuts (auto) Absolute Nucleated RBC Nucleated RBC % (auto) Sodium Potassium Chloride Carbon Dioxide Anion Gap BUN Creatinine Estim Creat Clear Calc Estimated GFR POC Glucose 116 H Fasting Glucose Calcium Imaging Radiology Impressions: ITS Impressions Chest X-Ray 08/11/20 23:56 IMPRESSION: Slight worsening of interstitial changes could represent edema/CHF. Given the presence of fever, underlying infiltrates cannot be excluded. Chest CT 08/12/20 06:07 IMPRESSION: 1. Coarse linear opacities bilateral apical upper lobe and anterior medial left upper lobe with some coarse calcification and traction bronchiectasis suggesting chronic scarring rather than atelectasis. 2. Widespread subtle geographic groundglass opacities more typical for small airways disease than a typical for bilateral pneumonia. Small bibasilar effusions. 3. Suspect superior mediastinal and supraclavicular adenopathy and thyroid nodules. Evaluation difficult in this exam without intravenous contrast. Abdomen/Pelvis CT 08/14/20 00:00 IMPRESSION: 1. No acute intra-abdominal or pelvic findings seen. Sigmoid and descending colonic diverticulosis is noted without evidence of acute diverticulitis. 2. 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 3. Other findings are similar to previous exam, including trace right pleural effusion and associated right basilar atelectasis, small retrocardiac hernia, extensive atherosclerotic vascular disease, extrahepatic biliary dilatation likely due to patient's age and postcholecystectomy state, findings of renal osteodystrophy. Mental Status Exam Mental Status Exam Patient Appearance: Disheveled Patient Orientation: Person, Place and Situation Level of Consciousness: Awake Patient Behavior: Guarded and Avoidant Mood Description: Angry Affect Description: Angry Speech Pattern: Clear Thought Process: Goal Oriented Thought Content: positive for Tr[place]ell Judgement: Poor Medications Medications Current Medications Generic Name Dose Route Start Last Admin Trade Name Freq PRN Reason Stop Dose Admin Acetaminophen 650 mg 08/12/20 09:00 08/13/20 04:24 Acetaminophen 325 Mg Tablet PO 650 mg Q6H PRN Administration Pain, Mild (Pain Scale 1-3) Docusate Sodium 100 mg 08/12/20 09:00 Docusate Sodium 100 Mg Capsule PO DAILY PRN Constipation Heparin Sodium (Porcine) 5,000 unit 08/12/20 09:00 08/16/20 10:48 Heparin Sodium,Porcine 5,000 Unit/Ml Vial SUBCUT 5,000 unit Q12H [facility] Administration Vancomycin HCl 750 mg/ Sodium 265 mls @ 265 mls/hr 08/12/20 16:45 08/12/20 21:21 Chloride IV Infused [id number]@1645 [facility] Infusion Insulin Human Lispro 0 unit 08/12/20 09:00 08/16/20 12:44 Insulin Lispro 100 Unit/Ml 3 Ml Vial SUBCUT Not Given QIDACHS [facility] Protocol Lidocaine HCl 0.5 ml 08/12/20 16:45 08/14/20 16:01 Lidocaine Hcl 1 % Mpf 2 Ml Ampul SUBCUT Not Given [id number]@1645 [facility] Morphine Sulfate 2 mg 08/14/20 11:21 08/15/20 09:36 Morphine Sulfate 2 Mg/Ml Cartridge IVPUSH 2 mg Q4H PRN Administration Pain, Severe (Pain Scale 7-10) Ondansetron HCl 4 mg 08/12/20 09:00 08/14/20 10:32 Ondansetron Hcl 4 Mg/2 Ml Vial IVPUSH 4 mg Q8H PRN Administration Nausea and Vomiting Sodium Chloride 3 ml 08/12/20 09:00 08/16/20 09:46 0.9 % Sodium Chloride Flush 3 Ml Syringe IVFLUSH Not Given QSHIFT [facility] Allergies Allergies Allergy/AdvReac Type Severity Reaction Status Date / Time Penicillins [PENICILLINS] Allergy Unknown UNKNOWN Verified 07/18/20 00:34 piperacillin [PIPERACILLIN] Allergy Unknown UNKNOWN Verified 07/18/20 00:34 promethazine [PROMETHAZINE] Allergy Unknown UNKNOWN Verified 07/18/20 00:34 tazobactam [TAZOBACTAM] Allergy Unknown UNKNOWN Verified 07/18/20 00:34 Assessment & Plan Assessment & Plan (1) ESRD (end stage renal disease): Status: Acute Code(s): N18.6 - End stage renal disease Recommendations: Based on patient interview and chart review, at this time patient seems to lack capacity to make medical decision regarding discharge disposition She was unable to articulate risks associated with going home or benefits to SNF Did not appear to be able to take in or process information Would defer to HCP regarding discharge planning Greater than 50% of the session was spent on counseling and/or coordination of care
[2020-08-16 19:45] VITALS: BP 157/74; PULSE 86; RESP 16; TEMP 36.4; O2SAT 99
[2020-08-16 20:14] LABS: Glucose, Whole Blood 82 mg/dL (60-115)
[2020-08-17] VITALS: BP 179/80; PULSE 82; RESP 18; TEMP 36.3; O2SAT 96
[2020-08-17 04:00] VITALS: BP 178/80; PULSE 84; RESP 18; TEMP 36.7; O2SAT 95
[2020-08-17 06:11] LABS: MANUAL DIFF FLAG NO
[2020-08-17 06:26] LABS: Basophils Percent Auto 0.3 % (0-2); Eosinophils Absolute Auto 0.4 X10*3/uL (0.0-0.4); Hematocrit 32.4 % (37-47); Hemoglobin 10.6 g/dl (12.0-16.0); Lymphocytes Absolute Auto 1.3 X10*3/uL (1.2-4.9); Lymphocytes Percent Auto 12.9 % (20-40); Mean Corpuscular HGB Conc 32.7 g/dl (31.0-35.0); Mean Corpuscular Hemoglobin 28.6 pg (27.0-33.0); Mean Corpuscular Volume 87.3 fL (80-98); Mean Platelet Volume 11.1 fL (9.4-12.3); Monocytes Percent Auto 9.3 % (2-11); Neutrophils Absolute Auto 7.5 X10*3/uL (2.0-8.3); Neutrophils Percent Auto 72.5 % (45-73); Platelet Count 144 X10*3/uL (160-400); Red Blood Count 3.71 X10*6/uL (4.20-5.50); Red Cell Distribution Width 14.5 % (11.0-16.0); White Blood Count 10.4 X10*3/uL (4.8-10.8)
[2020-08-17 06:50] LABS: Anion Gap 20 (12-20); Blood Urea Nitrogen 52 mg/dL (9-16); Calcium 7.1 mg/dL (8.4-10.2); Carbon Dioxide 26 mmol/L (22-29); Chloride 97 mmol/L (96-108); Glucose Fasting 80 mg/dL (60-99); Sodium 139 mmol/L (135-145)
[2020-08-17 07:08] LABS: Creatinine Clr Calc Pharmacy 6.7; Estimated Glomerular Filt Rate 7
[2020-08-17 07:33] LABS: Glucose, Whole Blood 82 mg/dL (60-115)
[2020-08-17] MEDS: vancomycin HCL 750 MG in 0.9 % Sodium Chloride 250 ML 265 MG IV (07:53)
--- NOTE | 2020-08-17 08:11 | PC.NURSE ---
per dr nelson and pharmacy, mo to give vanco 750 during dialysis. patient has no alternate iv access
--- NOTE | 2020-08-17 09:48 | P.PNIM_ITS ---
Subjective Subjective Date of Service: 08/17/20 Interval History: wants to go home Cardiovascular Cardiovascular: Reports no additional cardiovascular complaints Respiratory Respiratory: Reports no additional respiratory complaints Physical Exam Vital Signs: Vital Signs: Vital Signs Temp Pulse Resp BP Pulse Ox 08/17/20 04:00 98.0 F 84 18 178/80 H 95 08/17/20 00:00 97.4 F 82 18 179/80 H 96 08/16/20 19:45 97.5 F 86 16 157/74 H 99 08/16/20 15:39 98.6 F 82 18 148/68 H 99 08/16/20 11:12 97.4 F 79 18 149/71 H 98 Body Mass Index 23.8 General: no acute distress Resp: CTA bilateral CVS: S1,S2,RRR GI: soft, non tender, non distended Neuro: motor grossly intact Psych: impaired insight Objective Data Current Medications Generic Name Dose Route Start Last Admin Trade Name Freq PRN Reason Stop Dose Admin Acetaminophen 650 mg 08/12/20 09:00 08/13/20 04:24 Acetaminophen 325 Mg Tablet PO 650 mg Q6H PRN Administration Pain, Mild (Pain Scale 1-3) Docusate Sodium 100 mg 08/12/20 09:00 Docusate Sodium 100 Mg Capsule PO DAILY PRN Constipation Heparin Sodium (Porcine) 5,000 unit 08/12/20 09:00 08/16/20 21:07 Heparin Sodium,Porcine 5,000 Unit/Ml Vial SUBCUT Not Given Q12H [facility] Vancomycin HCl 750 mg/ Sodium 265 mls @ 265 mls/hr 08/12/20 16:45 08/17/20 07:53 Chloride IV 265 mls/hr [id number]@1645 [facility] Administration Insulin Human Lispro 0 unit 08/12/20 09:00 08/16/20 21:07 Insulin Lispro 100 Unit/Ml 3 Ml Vial SUBCUT Not Given QIDACHS [facility] Protocol Lidocaine HCl 0.5 ml 08/12/20 16:45 08/14/20 16:01 Lidocaine Hcl 1 % Mpf 2 Ml Ampul SUBCUT Not Given [id number]@1645 [facility] Morphine Sulfate 2 mg 08/14/20 11:21 08/15/20 09:36 Morphine Sulfate 2 Mg/Ml Cartridge IVPUSH 2 mg Q4H PRN Administration Pain, Severe (Pain Scale 7-10) Ondansetron HCl 4 mg 08/12/20 09:00 08/14/20 10:32 Ondansetron Hcl 4 Mg/2 Ml Vial IVPUSH 4 mg Q8H PRN Administration Nausea and Vomiting Sodium Chloride 3 ml 08/12/20 09:00 08/17/20 07:54 0.9 % Sodium Chloride Flush 3 Ml Syringe IVFLUSH Not Given QSHIFT [facility] Labs CBC & Chem 7: 08/17/20 05:55 08/17/20 05:55 Microbiology Microbiology Results: Microbiology 08/15/20 09:45 Blood - Venous Blood Culture - Preliminary Staphylococcus aureus 08/15/20 09:45 Blood - Venous Blood Culture - Preliminary No growth after 24 hours. 08/12/20 00:29 Blood - Venous Blood Culture - Final Methicillin Res Staph Aureus 08/12/20 00:26 Blood - Venous Blood Culture - Final Methicillin Res Staph Aureus Assessment and Plan (1) Sepsis: Problem details: sec to PNA Status: Acute (2) HTN (hypertension), malignant: Status: Acute (3) Diabetes mellitus: Status: Acute (4) ESRD (end stage renal disease): Problem details: HD on regular schedule TTS tolerated well yesterday Status: Acute (5) Anemia: Status: Acute Assessment and Plan: 55-year-old female with extensive past medical history including ESRD on dialysis presented with fever sepsis poa due to MRSA bacteremia, likely related to HD echo with questionable mitral vegetation, follow up ID for duration of therapy given questionable vegetation, continue vanc, dced cefepime, repeat cultures from 08/15 has 1/2 positive, repeating cultures again today 08/17, patient has AVF, no indwelling catheter. dementia psych appreciated, patient currently appears not to have insight into her medical conditions and therefore, cannot make informed decisions regarding most treatments and dispositions ESRD on dialysis HD diabetes insulin
--- NOTE | 2020-08-17 10:02 | PM.PNNEP ---
Subjective Subjective Interval history: pt doing OK tolerated HD well BCs MRSA unclear source Physical Exam Vital Signs: Vital Signs: Vital Signs Temp Pulse Resp BP Pulse Ox 08/17/20 04:00 98.0 F 84 18 178/80 H 95 08/17/20 00:00 97.4 F 82 18 179/80 H 96 08/16/20 19:45 97.5 F 86 16 157/74 H 99 08/16/20 15:39 98.6 F 82 18 148/68 H 99 08/16/20 11:12 97.4 F 79 18 149/71 H 98 oral moist mucosa lungs clear s1s2 abd soft +BSs ext no edema LUE AVF no abscess or collection noted. neuro no focal deficit Body Mass Index 23.8 Assessment & Plan Assessment and plan (1) ESRD (end stage renal disease): Problem details: HD on regular schedule TTS tolerated well yesterday Status: Acute (2) Sepsis: Problem details: sec to MRSA unclear source redrawing BCxs today, check US of AVF (r/o collection), ?wounds/bone or other potential sources echo noted +veg--->continue with ID recs and consider CT surgery evaluation Status: Acute Assessment and Plan: ABX as peer ID, HD on thrusday Time Spent With Patient Time: Total time spent is greater than 50% in coordination of care (as documented) at patient's floor/unit and/or counseling patient:
[2020-08-17] MEDS: Heparin Sodium,Porcine 5,000 UNIT/ML VIAL 5000 UNIT SUBCUT ×2 (10:40→21:06)
[2020-08-17 11:02] VITALS: BP 174/79; PULSE 76; RESP 18; TEMP 36.3; O2SAT 98
[2020-08-17 11:13] LABS: Glucose, Whole Blood 87 mg/dL (60-115)
[2020-08-17 11:23] LABS: Glucose, Whole Blood 90 mg/dL (60-115)
--- NOTE | 2020-08-17 13:01 | HO.PM.IMPN ---
Subjective Subjective Interval History: wants to go home Physical Exam Vital Signs: Vital Signs: Vital Signs Temp Pulse Resp BP Pulse Ox 08/17/20 11:02 97.4 F 76 18 174/79 H 98 08/17/20 04:00 98.0 F 84 18 178/80 H 95 08/17/20 00:00 97.4 F 82 18 179/80 H 96 08/16/20 19:45 97.5 F 86 16 157/74 H 99 08/16/20 15:39 98.6 F 82 18 148/68 H 99 Body Mass Index 23.8 General: no acute distress Resp: CTA bilateral CVS: S1,S2,RRR GI: soft, non tender, non distended Neuro: motor grossly intact Psych: impaired insight Objective Data Current Medications Generic Name Dose Route Start Last Admin Trade Name Freq PRN Reason Stop Dose Admin Acetaminophen 650 mg 08/12/20 09:00 08/13/20 04:24 Acetaminophen 325 Mg Tablet PO 650 mg Q6H PRN Administration Pain, Mild (Pain Scale 1-3) Docusate Sodium 100 mg 08/12/20 09:00 Docusate Sodium 100 Mg Capsule PO DAILY PRN Constipation Heparin Sodium (Porcine) 5,000 unit 08/12/20 09:00 08/17/20 10:40 Heparin Sodium,Porcine 5,000 Unit/Ml Vial SUBCUT 5,000 unit Q12H [facility] Administration Vancomycin HCl 750 mg/ Sodium 265 mls @ 265 mls/hr 08/12/20 16:45 08/17/20 10:39 Chloride IV Infused [id number]@1645 [facility] Infusion Insulin Human Lispro 0 unit 08/12/20 09:00 08/17/20 10:38 Insulin Lispro 100 Unit/Ml 3 Ml Vial SUBCUT Not Given QIDACHS [facility] Protocol Lidocaine HCl 0.5 ml 08/12/20 16:45 08/14/20 16:01 Lidocaine Hcl 1 % Mpf 2 Ml Ampul SUBCUT Not Given TUTA@1645 [facility] Morphine Sulfate 2 mg 08/14/20 11:21 08/15/20 09:36 Morphine Sulfate 2 Mg/Ml Cartridge IVPUSH 2 mg Q4H PRN Administration Pain, Severe (Pain Scale 7-10) Ondansetron HCl 4 mg 08/12/20 09:00 08/14/20 10:32 Ondansetron Hcl 4 Mg/2 Ml Vial IVPUSH 4 mg Q8H PRN Administration Nausea and Vomiting Sodium Chloride 3 ml 08/12/20 09:00 08/17/20 07:54 0.9 % Sodium Chloride Flush 3 Ml Syringe IVFLUSH Not Given QSHIFT [facility] Labs CBC & Chem 7: 08/17/20 05:55 08/17/20 05:55 Microbiology Microbiology Results: Microbiology 08/15/20 09:45 Blood - Venous Blood Culture - Preliminary No growth after 48 hours. 08/15/20 09:45 Blood - Venous Blood Culture - Preliminary Staphylococcus aureus 08/12/20 00:29 Blood - Venous Blood Culture - Final Methicillin Res Staph Aureus 08/12/20 00:26 Blood - Venous Blood Culture - Final Methicillin Res Staph Aureus Assessment and Plan (1) Sepsis: Problem details: sec to MRSA unclear source redrawing BCxs today, check US of AVF (r/o collection), ?wounds/bone or other potential sources echo noted +veg--->continue with ID recs and consider CT surgery evaluation Status: Acute (2) HTN (hypertension), malignant: Status: Acute (3) Diabetes mellitus: Status: Acute (4) ESRD (end stage renal disease): Problem details: HD on regular schedule TTS tolerated well yesterday Status: Acute (5) Anemia: Status: Acute Assessment and Plan: 55-year-old female with extensive past medical history including ESRD on dialysis presented with fever sepsis poa due to MRSA bacteremia, likely related to HD echo with questionable mitral vegetation, will puruse MARY, continue vanc, dced cefepime, repeat cultures from 08/15 has 1/2 positive, repeating cultures again today 08/17, patient has AVF, no indwelling catheter. dementia psych appreciated, patient currently appears not to have insight into her medical conditions and therefore, cannot make informed decisions regarding most treatments and dispositions ESRD on dialysis HD diabetes insulin
--- NOTE | 2020-08-17 13:27 | MHC.CM.PN ---
spoke with pts hcp which is invoked iqra wiseman [phone] pts son who is agreeable to str preferring to stay in [facility] if possible imm updated
[2020-08-17 14:26] LABS: Vancomycin Random 25.1 mcg/mL (15-20)
[2020-08-17 15:03] VITALS: BP 146/80; PULSE 82; RESP 18; TEMP 37.1; O2SAT 96
--- NOTE | 2020-08-17 15:45 | P.PNID_ITS ---
Subjective Subjective Date of Service: 08/17/20 Interval History: she has no complaints Objective Data Labs CBC & Chem 7: 08/18/20 09:14 08/18/20 09:14 Labs: Laboratory Results - last 24 hr 08/16/20 08/16/20 08/17/20 16:16 20:08 05:55 WBC 10.4 RBC 3.71 L Hgb 10.6 L Hct 32.4 L MCV 87.3 MCH 28.6 MCHC 32.7 RDW 14.5 Plt Count 144 L MPV 11.1 Immature Gran % (Auto) 1.0 H Neut % (Auto) 72.5 Lymph % (Auto) 12.9 L [place] % (Auto) 9.3 Eos % (Auto) 4.0 Baso % (Auto) 0.3 Lymph # (Auto) 1.3 [place] # (Auto) 1.0 Eos # (Auto) 0.4 Baso # (Auto) 0.0 Abs Immat Gran (auto) 0.10 H Absolute Neuts (auto) 7.5 Absolute Nucleated RBC 0.000 Nucleated RBC % (auto) 0.0 Sodium Potassium Chloride Carbon Dioxide Anion Gap BUN Creatinine Estim Creat Clear Calc Estimated GFR POC Glucose 116 H 82 Fasting Glucose Calcium Random Vancomycin 08/17/20 08/17/20 08/17/20 05:55 07:28 11:04 WBC RBC Hgb Hct MCV MCH MCHC RDW Plt Count MPV Immature Gran % (Auto) Neut % (Auto) Lymph % (Auto) [place] % (Auto) Eos % (Auto) Baso % (Auto) Lymph # (Auto) [place] # (Auto) Eos # (Auto) Baso # (Auto) Abs Immat Gran (auto) Absolute Neuts (auto) Absolute Nucleated RBC Nucleated RBC % (auto) Sodium 139 Potassium 4.0 Chloride 97 Carbon Dioxide 26 Anion Gap 20 BUN 52 H Creatinine 6.59 H* Estim Creat Clear Calc 6.7 Estimated GFR 7 POC Glucose 82 90 Fasting Glucose 80 Calcium 7.1 L Random Vancomycin 08/17/20 08/17/20 11:10 13:30 WBC RBC Hgb Hct MCV MCH MCHC RDW Plt Count MPV Immature Gran % (Auto) Neut % (Auto) Lymph % (Auto) [place] % (Auto) Eos % (Auto) Baso % (Auto) Lymph # (Auto) [place] # (Auto) Eos # (Auto) Baso # (Auto) Abs Immat Gran (auto) Absolute Neuts (auto) Absolute Nucleated RBC Nucleated RBC % (auto) Sodium Potassium Chloride Carbon Dioxide Anion Gap BUN Creatinine Estim Creat Clear Calc Estimated GFR POC Glucose 87 Fasting Glucose Calcium Random Vancomycin 25.1 H* Microbiology Microbiology Results: Microbiology 08/15/20 09:45 Blood - Venous Blood Culture - Preliminary No growth after 48 hours. 08/15/20 09:45 Blood - Venous Blood Culture - Preliminary Staphylococcus aureus 08/12/20 00:29 Blood - Venous Blood Culture - Final Methicillin Res Staph Aureus 08/12/20 00:26 Blood - Venous Blood Culture - Final Methicillin Res Staph Aureus Physical Exam Vital Signs: Vital Signs: Vital Signs Temp Pulse Resp BP Pulse Ox 08/17/20 15:03 98.7 F 82 18 146/80 H 96 08/17/20 11:02 97.4 F 76 18 174/79 H 98 08/17/20 04:00 98.0 F 84 18 178/80 H 95 08/17/20 00:00 97.4 F 82 18 179/80 H 96 08/16/20 19:45 97.5 F 86 16 157/74 H 99 Body Mass Index 23.8 Const: General: cooperative Eyes: General: appearance normal, both eyes and all related structures Resp: Effort & Inspection: normal respiratory effort Cardio: Rate: regular rate Rhythm: regular rhythm GI: Inspection: Yes normal to inspection Assessment and Plan Assessment and plan (1) Sepsis: Problem details: M Status: Acute Assessment and Plan: Check MARY 6 weeks IV Vancomycin likely (2) Pneumonia: Problem details: on HD dosed Antibx Status: Acute Time Spent With Patient Time: Total time spent is greater than 50% in coordination of care (as documented) at patient's floor/unit and/or counseling patient: Time with patient: 15 - 24 minutes
[2020-08-17 16:24] LABS: Glucose, Whole Blood 84 mg/dL (60-115)
[2020-08-17 18:34] LABS: Vancomycin Random 23.8 mcg/mL (15-20)
[2020-08-17 20:35] LABS: Glucose, Whole Blood 73 mg/dL (60-115)
[2020-08-18] VITALS: BP 132/73; PULSE 86; RESP 23; TEMP 37; O2SAT 100
[2020-08-18 02:01] LABS: Glucose, Whole Blood 81 mg/dL (60-115)
[2020-08-18 03:48] VITALS: BP 164/89; PULSE 87; RESP 18; TEMP 36.9; O2SAT 98
[2020-08-18 07:29] VITALS: BP 143/69; PULSE 90; RESP 20; TEMP 37.2; O2SAT 99
[2020-08-18 07:50] LABS: Glucose, Whole Blood 103 mg/dL (60-115)
[2020-08-18] MEDS: 0.9 % Sodium Chloride Flush 3 ML SYRINGE IVFLUSH ×2 (09:02→17:35)
[2020-08-18] MEDS: Heparin Sodium,Porcine 5,000 UNIT/ML VIAL 5000 UNIT SUBCUT (09:16)
--- NOTE | 2020-08-18 09:34 | PM.PNNEP ---
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 Status: Acute (2) ESRD (end stage renal disease): Problem details: HD on regular schedule TTS tolerated well yesterday, plan for HD tomorrow. Status: Acute Time Spent With Patient Time: Total time spent is greater than 50% in coordination of care (as documented) at patient's floor/unit and/or counseling patient:
[2020-08-18 09:45] LABS: MANUAL DIFF FLAG NO
[2020-08-18 09:51] LABS: Basophils Percent Auto 0.3 % (0-2); Eosinophils Absolute Auto 0.2 X10*3/uL (0.0-0.4); Eosinophils Percent Auto 1.9 % (0-4); Hematocrit 35.7 % (37-47); Hemoglobin 11.7 g/dl (12.0-16.0); Imm Gran Pct Auto 0.9 % (0.0-0.4); Lymphocytes Absolute Auto 1.4 X10*3/uL (1.2-4.9); Mean Corpuscular HGB Conc 32.8 g/dl (31.0-35.0); Mean Corpuscular Hemoglobin 28.7 pg (27.0-33.0); Mean Corpuscular Volume 87.7 fL (80-98); Mean Platelet Volume 11.7 fL (9.4-12.3); Monocytes Absolute Auto 1.2 X10*3/uL (0.1-1.2); Monocytes Percent Auto 10.1 % (2-11); Neutrophils Absolute Auto 8.6 X10*3/uL (2.0-8.3); Neutrophils Percent Auto 74.8 % (45-73); Platelet Count 169 X10*3/uL (160-400); Red Blood Count 4.07 X10*6/uL (4.20-5.50); Red Cell Distribution Width 14.5 % (11.0-16.0); White Blood Count 11.5 X10*3/uL (4.8-10.8)
[2020-08-18 10:55] LABS: Anion Gap 21 (12-20); Blood Urea Nitrogen 27 mg/dL (9-16); Calcium 7.8 mg/dL (8.4-10.2); Carbon Dioxide 24 mmol/L (22-29); Chloride 94 mmol/L (96-108); Creatinine Clr Calc Pharmacy 9.4; Estimated Glomerular Filt Rate 10; Glucose Fasting 163 mg/dL (60-99); Potassium 4.2 mmol/l (3.3-5.1); Sodium 135 mmol/L (135-145)
--- NOTE | 2020-08-18 11:02 | MHC.CM.PN ---
The goal for dc is now for STR at [facility]. Patient remains on IV Vanco for MRSA and BC are being monitored closely. CM will follow for dc planning and the possibility of the need to adjust the dc plan again.
[2020-08-18 11:12] VITALS: BP 132/61; PULSE 88; RESP 18; TEMP 36.8; O2SAT 99
--- NOTE | 2020-08-18 11:40 | P.PNIM_ITS ---
Subjective Subjective Date of Service: 08/18/20 Interval History: Patient seen and examined at bedside patient denies any complain Physical Exam Vital Signs: Vital Signs: Vital Signs Temp Pulse Resp BP Pulse Ox 08/18/20 11:12 98.3 F 88 18 132/61 99 08/18/20 07:29 98.9 F 90 20 143/69 H 99 08/18/20 03:48 98.4 F 87 18 164/89 H 98 08/18/20 00:00 98.6 F 86 23 H 132/73 100 08/17/20 15:03 98.7 F 82 18 146/80 H 96 Body Mass Index 23.8 General: no acute distress Resp: CTA bilateral CVS: S1,S2,RRR GI: soft, non tender, non distended Neuro: motor grossly intact Psych: impaired insight Const: General: ill appearing, poor hygiene and tired appearing Nutritional Appearance: underweight Eyes: General: appearance normal, both eyes and all related structures Pupils: Equal, round and reactive pupils present Resp: Effort & Inspection: normal respiratory effort and able to speak in complete sentences Auscultation: clear to auscultation bilaterally Cardio: Rate: regular rate Rhythm: regular rhythm GI: Palpation (GI): Soft to palpation Auscultation: normal bowel sounds Skin: General skin exam: no rashes or lesions noted Neuro: Cranial nerves: Yes Equal, round and reactive pupils present Cognition (Neuro): normal cognition Extrem: Other: site of AV fistula does not appear to be infected, no erythema, no tenderness, no warmth General: Yes normal to inspection and Yes no pedal edema Objective Data Current Medications Generic Name Dose Route Start Last Admin Trade Name Lucero PRN Reason Stop Dose Admin Acetaminophen 650 mg 08/12/20 09:00 08/13/20 04:24 Acetaminophen 325 Mg Tablet PO 650 mg Q6H PRN Administration Pain, Mild (Pain Scale 1-3) Docusate Sodium 100 mg 08/12/20 09:00 Docusate Sodium 100 Mg Capsule PO DAILY PRN Constipation Heparin Sodium (Porcine) 5,000 unit 08/12/20 09:00 08/18/20 09:16 Heparin Sodium,Porcine 5,000 Unit/Ml Vial SUBCUT 5,000 unit Q12H MIRIAM Administration Hydromorphone HCl 0.5 mg 08/18/20 11:36 Hydromorphone Hcl 2 Mg Tablet PO Q6H PRN Pain, Moderate (Pain Scale 4-6 Vancomycin HCl 750 mg/ Sodium 265 mls @ 265 mls/hr 08/12/20 16:45 08/17/20 10:39 Chloride IV Infused [id number] [facility] Infusion Insulin Human Lispro 0 unit 08/12/20 09:00 08/18/20 09:01 Insulin Lispro 100 Unit/Ml 3 Ml Vial SUBCUT Not Given QIDACHS [facility] Protocol Lidocaine HCl 0.5 ml 08/12/20 16:45 08/17/20 16:33 Lidocaine Hcl 1 % Mpf 2 Ml Ampul SUBCUT Not Given [id number]@[id number] [facility] Morphine Sulfate 2 mg 08/14/20 11:21 08/15/20 09:36 Morphine Sulfate 2 Mg/Ml Cartridge IVPUSH 2 mg Q4H PRN Administration Pain, Severe (Pain Scale 7-10) Ondansetron HCl 4 mg 08/12/20 09:00 08/14/20 10:32 Ondansetron Hcl 4 Mg/2 Ml Vial IVPUSH 4 mg Q8H PRN Administration Nausea and Vomiting Sodium Chloride 3 ml 08/12/20 09:00 08/18/20 09:02 0.9 % Sodium Chloride Flush 3 Ml Syringe IVFLUSH 3 ml QSHIFT [facility] Administration Labs CBC & Chem 7: 08/18/20 09:14 08/18/20 09:14 Microbiology Microbiology Results: Microbiology 08/15/20 09:45 Blood - Venous Blood Culture - Preliminary Methicillin Res Staph Aureus 08/15/20 09:45 Blood - Venous Blood Culture - Preliminary No growth after 48 hours. 08/12/20 00:29 Blood - Venous Blood Culture - Final Methicillin Res Staph Aureus 08/12/20 00:26 Blood - Venous Blood Culture - Final Methicillin Res Staph Aureus Assessment and Plan (1) Sepsis: Problem details: M Status: Acute (2) HTN (hypertension), malignant: Status: Acute (3) Diabetes mellitus: Status: Acute (4) ESRD (end stage renal disease): Status: Acute (5) Anemia: Status: Acute Assessment and Plan: 55-year-old female with extensive past medical history including ESRD on dialysis presented with fever Sepsis due to MRSA bacteremia, likely related to HD echo with questionable mitral vegetation blood culture growing MRSA repeat culture from yesterday, 1 set growing Gram-positive cocci follow-up blood culture continue vanc, Dementia Psych appreciated, patient currently appears not to have insight into her medical conditions and therefore, cannot make informed decisions regarding most treatments and dispositions plan for rehab once medically stable ESRD on dialysis HD Diabetes continue insulin monitor blood glucose DVT prophylaxis heparin subcu
[2020-08-18] MEDS: HYDROmorphone HCl 2 MG TABLET 0.5 MG PO ×2 (11:50→20:11)
[2020-08-18 12:02] LABS: Glucose, Whole Blood 124 mg/dL (60-115)
--- NOTE | 2020-08-18 12:29 | PM.CNCAR ---
History of Present Illness History of Present Illness Date of Consult: August 18, 2020 Requesting physician: Zac Boothe Chief complaint: MRSA bacteremia Narrative: 55-year-old female with background history of end-stage renal disease on hemodialysis, anemia, diabetes, hypertension who is presenting with fever and MRSA bacteremia. She had echocardiography which showed severe mitral annular calcification and mobile mass attached to the mitral valve annulus with differentials including mobile mitral annular calcification versus vegetation. Since then she has had blood cultures which are currently pending. Clinically she is doing well. She is denying any fevers. She is hungry and she has a good appetite. She has some dementia and memory issues. no dyspnea or chest discomfort reported by the patient. Review of Systems Review of Systems: No chest pain or shortness of breath Yes all other systems are reviewed and are negative [facility] Past Medical History Medical History AVF (arteriovenous fistula) Blind Cataract Diabetes mellitus End stage kidney disease HTN (hypertension), malignant Toe amputee Surgical History Surgical History History of cholecystectomy Hx of appendectomy Social History Social History Household Members: Children Housing: Unknown / Unable to assess Do you presently have visiting nurse or other home services: No (unknown) Alcohol intake: unknown Smoking Status: Current every day smoker Tobacco Type: Cigarette Packs Per Day: 0.5 Cigarettes Per Day: 10.0 Years Smoked: >30 Smoked in Last 30 Days: Yes Second Hand Smoke Exposure: No Use of substances other than those prescribed or required for medical reasons: No Currently Displaying Signs/Symptoms of Drug Intoxication Withdrawal: No Any prior treatment program specific to substance use: No Advance Directives: No Advance Directives Information Provided: No Do you have thoughts of harming others: None Do you have a plan to hurt others: No Plan Recently lost weight without trying: Unsure service: No Current occupational status: disabled Meds Allergies Allergy/AdvReac Type Severity Reaction Status Date / Time Penicillins [PENICILLINS] Allergy Unknown UNKNOWN Verified 07/18/20 00:34 piperacillin [PIPERACILLIN] Allergy Unknown UNKNOWN Verified 07/18/20 00:34 promethazine [PROMETHAZINE] Allergy Unknown UNKNOWN Verified 07/18/20 00:34 tazobactam [TAZOBACTAM] Allergy Unknown UNKNOWN Verified 07/18/20 00:34 Home Medications Medication Instructions Recorded Confirmed Type multivitamin [Daily-Hta] 1 tab PO DAILY 07/18/20 08/12/20 History albuterol sulfate 2 puff PO QID 08/12/20 08/12/20 History amlodipine 1 tab PO DAILY 08/12/20 08/12/20 History calcitriol 2 cap PO TID 08/12/20 08/12/20 History loratadine 1 tab PO DAILY 08/12/20 08/12/20 History melatonin 1 tab PO BEDTIME 08/12/20 08/12/20 History mirtazapine 1 tab PO BEDTIME 08/12/20 08/12/20 History sertraline 1 tab PO DAILY 08/12/20 08/12/20 History sevelamer carbonate 3 tab PO TID 08/12/20 08/12/20 History tramadol 1 tab PO TID 08/12/20 08/12/20 History vit B,C-iron uer-DP-O3-zinc ox 1 tab PO DAILY 08/12/20 08/12/20 History [ProRenal] Physical Exam Vital Signs: Vital Signs: Vital Signs Temp Pulse Resp BP Pulse Ox 08/18/20 11:12 98.3 F 88 18 132/61 99 08/18/20 07:29 98.9 F 90 20 143/69 H 99 08/18/20 03:48 98.4 F 87 18 164/89 H 98 08/18/20 00:00 98.6 F 86 23 H 132/73 100 08/17/20 15:03 98.7 F 82 18 146/80 H 96 Body Mass Index 23.8 GENERAL APPEARANCE: frail HEENT: unremarkable. HEAD: normocephalic, atraumatic. NECK/THYROID: no jugular venous distention. HEART: no murmurs, regular rate and rhythm, S1, S2 normal. LUNGS: clear to auscultation bilaterally. ABDOMEN: normal, bowel sounds present, soft, nontender, nondistended. EXTREMITIES: no edema. legs are very thin with no muscle mass probably due to significant vascular disease. NEUROLOGIC: nonfocal, following commands. PSYCH: Depressed and tearful. Results Labs and Meds Result diagrams: 08/18/20 09:14 11/04/20 09:14 Lab results: Laboratory Results - last 24 hr 08/17/20 08/17/20 08/17/20 13:30 16:20 17:54 WBC RBC Hgb Hct MCV MCH MCHC RDW Plt Count MPV Immature Gran % (Auto) Neut % (Auto) Lymph % (Auto) [place] % (Auto) Eos % (Auto) Baso % (Auto) Lymph # (Auto) [place] # (Auto) Eos # (Auto) Baso # (Auto) Abs Immat Gran (auto) Absolute Neuts (auto) Absolute Nucleated RBC Nucleated RBC % (auto) Sodium Potassium Chloride Carbon Dioxide Anion Gap BUN Creatinine Estim Creat Clear Calc Estimated GFR POC Glucose 84 Fasting Glucose Calcium Random Vancomycin 25.1 H* 23.8 H 08/17/20 08/18/20 08/18/20 20:30 01:56 07:46 WBC RBC Hgb Hct MCV MCH MCHC RDW Plt Count MPV Immature Gran % (Auto) Neut % (Auto) Lymph % (Auto) [place] % (Auto) Eos % (Auto) Baso % (Auto) Lymph # (Auto) [place] # (Auto) Eos # (Auto) Baso # (Auto) Abs Immat Gran (auto) Absolute Neuts (auto) Absolute Nucleated RBC Nucleated RBC % (auto) Sodium Potassium Chloride Carbon Dioxide Anion Gap BUN Creatinine Estim Creat Clear Calc Estimated GFR POC Glucose 73 81 103 Fasting Glucose Calcium Random Vancomycin 08/18/20 08/18/20 08/18/20 09:14 09:14 11:59 WBC 11.5 H RBC 4.07 L Hgb 11.7 L Hct 35.7 L MCV 87.7 MCH 28.7 MCHC 32.8 RDW 14.5 Plt Count 169 MPV 11.7 Immature Gran % (Auto) 0.9 H Neut % (Auto) 74.8 H Lymph % (Auto) 12.0 L [place] % (Auto) 10.1 Eos % (Auto) 1.9 Baso % (Auto) 0.3 Lymph # (Auto) 1.4 [place] # (Auto) 1.2 Eos # (Auto) 0.2 Baso # (Auto) 0.0 Abs Immat Gran (auto) 0.10 H Absolute Neuts (auto) 8.6 H Absolute Nucleated RBC 0.000 Nucleated RBC % (auto) 0.0 Sodium 135 Potassium 4.2 Chloride 94 L Carbon Dioxide 24 Anion Gap 21 H BUN 27 H Creatinine 4.72 H* Estim Creat Clear Calc 9.4 Estimated GFR 10 POC Glucose 124 H Fasting Glucose 163 H D Calcium 7.8 L Random Vancomycin Assessment and Plan (1) ESRD (end stage renal disease): Status: Acute (2) MRSA bacteremia: Status: Acute (3) Endocarditis: Status: Acute 55-year-old female with complex issues including end-stage renal disease on hemodialysis. She is presenting with fever and is growing MRSA in her blood. Her echocardiogram is showing severe mitral annular calcification with some mobile component of mitral annular calcification. Vegetation cannot be ruled out. Given severe calcification and calcified looking mobile mass, MARY may not give a lot more information in this patient. Her valvular function is normal. Currently there is no surgical indication. I think we hold off on transesophageal echocardiogram. I think we treat her as if she has endocarditis given MRSA bacteremia and she being higher risk because of hemodialysis. If her bacteremia is not clearing then we can rediscuss transesophageal echocardiography to assess for surgical indications. Given severe mitral annular calcification, in most cases conservative approach with IV antibiotics would be the 1st line treatment. Thank you for allowing me to participate in the care of your patient. Please feel free to contact me if you have any questions.
[2020-08-18 14:13] LABS: Vancomycin Random 21.8 mcg/mL (15-20)
[2020-08-18 15:54] VITALS: BP 127/74; PULSE 90; RESP 18; TEMP 37.1; O2SAT 97
[2020-08-18 16:07] LABS: Glucose, Whole Blood 134 mg/dL (60-115)
[2020-08-18 19:53] VITALS: BP 137/68; PULSE 88; RESP 18; TEMP 36.8; O2SAT 96
[2020-08-18 21:04] LABS: Glucose, Whole Blood 128 mg/dL (60-115)
--- NOTE | 2020-08-18 22:47 | PC.NURSE ---
Addendum entered by Rosalee Carmen RN 08/19/20 05:28: pt refused to take Haldol, nursing complaint supervisor at bedside to discuss Haldol with pt, pt states she wants the medication to help her relax and sleep but when the medication is brought in she states that is not the medication and refuses to take it. pt continues to ask more more pain medication PRN Dilaudid given 0200. pt states after taking the medication that it is not the right medication and that it was never given. Pt requesting tramadol. made aware. New order fr tramadol received. when attempting to give to pt, pt again very suspicious about medication. requiring a lot of reassurance to take the medication. tramadol given. will cont to monitor Original Note: pt yelling out in room, upon assesment pt stating she is in pain, this RN brought pt PO Dilaudid, pt very suspicious of medication stating that its not her medication and this RN is not her nurse. This Rn able to assure pt that the medication is okay to take but pt remains yelling out stating that she wants to call her son. Son on phone with pt. Pt told son that her legs were cut off. Son spoke with this RN stating I want the truth right now did you cut her legs off This RN assured son that pt was not at the hospital for any leg procedures. Reason for stay discussed with son. pt spoke with son for a while then began yelling out again, trying to get out of bed insistent her feet are gone. made aware. order for hadol IM 1 mg. sitter placed at bedside for safety. will continue to monitor
[2020-08-19] VITALS: BP 163/74; PULSE 89; RESP 18; TEMP 36.8; O2SAT 100
[2020-08-19] MEDS: HYDROmorphone HCl 2 MG TABLET 0.5 MG PO (02:01)
[2020-08-19 03:22] VITALS: BP 144/70; PULSE 88; RESP 20; TEMP 36.9; O2SAT 99
[2020-08-19] MEDS: traMADoL HCL 50 MG TABLET PO (05:03)
[2020-08-19 07:17] VITALS: BP 156/69; PULSE 88; RESP 17; TEMP 37; O2SAT 99
[2020-08-19 07:31] LABS: Glucose, Whole Blood 89 mg/dL (60-115)
--- NOTE | 2020-08-19 11:35 | P.DS_ITS ---
DS: Providers Provider Date of admission: 08/12/20 05:02 Primary care physician: Unknown Physician Consults: 08/12/20 09:00 Consult to Nephrology Routine Consulting Provider: MARIA DEL CARMEN owusu Reason for consultation: dialysis pt Has provider been notified: No 08/13/20 16:20 Consult to Care Team Routine Comment: Reason for consultation: Depression 08/15/20 12:14 Consult to Infectious Diseases Routine Consulting Provider: Farida Carroll Reason for consultation: MRSA bacteremia, ESRD 08/16/20 10:52 Consult to Psychiatry Routine Consulting Provider: Peyton Hernandez Reason for consultation: patient refusing rehab, i am not sure how clear her thinking is 08/17/20 13:21 Consult to Cardiology Routine Consulting Provider: Mynor Quiroz Reason for consultation: possible MARY for vegetation on TTE DS: Diagnosis Discharge Diagnosis (1) ESRD (end stage renal disease): Status: Acute (2) MRSA bacteremia: Status: Acute (3) Endocarditis: Status: Acute DS: Summary Hospital Course Hospital Course: HPI on admission 55-year-old female with past medical history of end-stage renal disease on dialysis, diabetes, hypertension with a frequent presentation to the hospital for missed dialysis presents to the hospital today with complaints of fever. Patient is a very poor historian, very difficult to get any information from. Refusing to answer my questions, although awake, alert but is not cooperating. On arrival to the ED patient has a temperature of 101.8?, heart rate of 103, blood pressure 191/89 Labs are significant for WBC count of 15.3, BUN of 49, creatinine of 9.9, chest x-ray showing slight worsening of interstitial changes could represent edema versus CHF, given the presence of fever, underlying infiltrates cannot be excluded patient is refusing to give urine(not anuric) and she is also refusing to be straight cathed past medical history: End-stage renal disease on dialysis sunday diabetes, hypertension, Past surgical history: toe amputation, shunt placement, cholecystectomy Family history: Denies Social history: Comes from home, currently an active smoker, denies any alcohol or illicit drug use Hospital course 55-year-old female with ESRD on hemodialysis through AV fistula admitted with fever,sepsis source was not clear on admission, patient was started on Vanco and cefepime, blood cultures were sent, blood cultures grew MRSA, infectious disease was consulted recommended continue vancomycin and recommended echocardiogram, echocardiogram shows EF of 50-55% , with severe mitral valve calcification and mobile density on mitral valvepossible vegetation , cardiology was consulted recommended continue IV antibiotic, cardiology reconciled no need for MARY given severe calcification and calcified looking mobile mass and MARY will be less informatiive, and recommended continue IV antibiotic, no other source of bactremia was found , source of MRSA bacteremia was likely AV fistula site, patient's 3 sets of blood culture were positive for MRSA , case was discussed with patient's horse buyer Dr. hampton , patient's fistula was placed at [facility] by Dr. Denzel Wallace, given persistent bacteremia and possible source AV fistula , id and Nephrology recommended transferring patient to [facility] for evaluation of fistula site, patient was accepted at [facility] , patient was transferred to [facility] for further management. patient was continued on vancomycin 3 times a week during dialysis on discharge patient was also seen by Psychiatry given patient was refusing care on and off, psych team reconciled that patient currently appears not to have insight into her medical conditions and therefore, cannot make informed decisions regarding most treatments and dispositions, patient HCP is her son Time Spent with Patient Time attestation: Total time spent providing and/or coordinating discharge services: Physical Exam Vital Signs: Vital Signs: Vital Signs Temp Pulse Resp BP Pulse Ox 08/19/20 07:17 98.6 F 88 17 156/69 H 99 08/19/20 03:22 98.5 F 88 20 144/70 H 99 08/19/20 00:00 98.2 F 89 18 163/74 H 100 08/18/20 19:53 98.2 F 88 18 137/68 96 08/18/20 15:54 98.8 F 90 18 127/74 97 Body Mass Index 23.8 General: no acute distress Resp: CTA bilateral CVS: S1,S2,RRR GI: soft, non tender, non distended Neuro: motor grossly intact Psych: impaired insight AV fistula site with some tenderness and mild erythema Extrem: Other: DS: Data Data Completed and Pending Completed studies during hospitalization [Text1]: Procedures Performance of Urinary Filtration, Intermittent, Less than 6 Hours Per Day (08/09/20) Transfusion of Nonautologous Red Blood Cells into Peripheral Vein, Percutaneous Approach (07/18/20) Labs on day of discharge: Labs from last 24 hours 08/19/20 08/19/20 08/18/20 10:22 07:15 21:01 POC Glucose 89 128 H Vancomycin Trough Pending Random Vancomycin 08/18/20 08/18/20 08/18/20 16:03 13:00 11:59 POC Glucose 134 H 124 H Vancomycin Trough Random Vancomycin 21.8 H Preliminary micro results at discharge 08/17/20 13:30 Blood Culture - Preliminary Blood - Venous No growth after 24 hours. 08/17/20 13:30 Blood Culture - Preliminary Blood - Venous 08/15/20 09:45 Blood Culture - Preliminary Blood - Venous Methicillin Res Staph Aureus 08/15/20 09:45 Blood Culture - Preliminary Blood - Venous No growth after 48 hours. Discharge Plan Discharge Anticipated Discharge Date/Time: 08/19/20 11:19 Patient Disposition: [facility]fer [facility] Referrals: Karime Booth MD [Physician] - 1 Week (Please call and schedule a follow up appointment within 1 week. ) Discharge Medications: Continued multivitamin [Daily-Tha] Tablet 1 tab PO DAILY RF: 0 tramadol 50 mg tablet 1 tab PO TID RF: 0 amlodipine 10 mg tablet 1 tab PO DAILY RF: 0 mirtazapine 30 mg tablet 1 tab PO BEDTIME RF: 0 calcitriol 0.5 mcg capsule 2 cap PO TID RF: 0 albuterol sulfate 90 mcg/actuation HFA aerosol inhaler 2 puff PO QID RF: 0 sertraline 50 mg tablet 1 tab PO DAILY RF: 0 loratadine 10 mg tablet 1 tab PO DAILY RF: 0 sevelamer carbonate 800 mg tablet 3 tab PO TID RF: 0 melatonin 5 mg tablet 1 tab PO BEDTIME RF: 0 ProRenal 8 mg iron-800 mcg-1,000 unit tablet 1 tab PO DAILY RF: 0 Discharge Orders: Discharge Order (Routine); Ordered 08/19/20 Ordered By: Zac Boothe Diet: diabetic diet Activity on Discharge: As tolerated Discharge Date/Time: 08/19/20 17:05 Visit Report Forms: Patient Portal Discharge page Care Plan Goals: treat bactremia Health Concerns: persistent bactremia Plan of Treatment: on i/v antibiotics , being transferred to [facility] for evulation by vascular surgery as source potentially fistula
[2020-08-19 11:36] VITALS: BP 100/53; PULSE 73; RESP 16; TEMP 36.2
[2020-08-19 11:44] LABS: Vancomycin Trough 13.5 mcg/mL (10.0-20.0)
[2020-08-19 12:27] LABS: Glucose, Whole Blood 99 mg/dL (60-115)
[2020-08-19 16:00] VITALS: BP 134/75; PULSE 78; RESP 18; TEMP 37; O2SAT 98
[2020-08-19 16:32] LABS: Glucose, Whole Blood 113 mg/dL (60-115)
[2020-08-19] MEDS: ondansetron HCL 4 MG/2 ML VIAL IVPUSH (17:02)
--- NOTE | 2020-08-19 17:14 | PC.NURSE ---
Pt transferred to [facility] today at 1700. This RN gave report to DEN Roberts at [facility] before pt was transferred. This RN also attempted to call pt son, but there was no answer. Will continue to attempt to contact pt son. Safe transfer, VSS.
== END 2020-08-19 17:05 | disposition critical access hospital (66) | DRG 314 ==
LOC: HO.ED 08-12 01:46 → HO.IMC 08-12 05:46
PROVIDERS: Internal Medicine; Admitting Provider Internal Medicine; Emergency Provider Internal Medicine; Visit Provider Internal Medicine
DX: T82.7XXA Infection and inflammatory reaction due to other cardiac and vascular devices, implants and grafts, initial encounter (principal); A41.02 Sepsis due to Methicillin resistant Staphylococcus aureus; N18.6 End stage renal disease; I12.0 Hypertensive chronic kidney disease with stage 5 chronic kidney disease or end stage renal disease; F03.90 Unspecified dementia, unspecified severity, without behavioral disturbance, psychotic disturbance, mood disturbance, and anxiety; E11.22 Type 2 diabetes mellitus with diabetic chronic kidney disease; D72.829 Elevated white blood cell count, unspecified; I05.9 Rheumatic mitral valve disease, unspecified; D63.1 Anemia in chronic kidney disease; Z99.2 Dependence on renal dialysis; Z20.828 Contact with and (suspected) exposure to other viral communicable diseases; Z88.0 Allergy status to penicillin; Z79.891 Long term (current) use of opiate analgesic; Z79.899 Other long term (current) drug therapy
CPT/HCPCS: 36415; 36600; 71045; 71250; 74176; 80048; 80076; 80202; 82800; 82803; 82947; 83605; 83735; 84100; 85025; 85610; 85730; 87040; 87077; 87147; 87186; 87635; 90999; 93005; 93306; 96361; 96365; 96366; 96374; 96375; 97163; 99225; 99232; 99233; 99285; 99291; 99292; J0610; J0692; J0696; J1940; J2060; J2270; J2405; J3370